=== PATIENT | female | born 1935 | race Caucasian/White ===

== ENCOUNTER 2017-03-23 05:04 | Inpatient (IN) | payer MEDICARE ==
[2017-03-23] VITALS (10 sets, daily range): BP systolic 88–121; BP diastolic 48–68; PULSE 62–97; RESP 16–18; TEMP 98.5–98.8; O2SAT 91–94
[~2017-03-23] VITALS: Ht 177.8 cm; Wt 69.1 kg
[~2017-03-23 05:04] MED LIST: ACIDCAP; CALC500T35; CARB10TA2 PO; CIPR-9 PO; CRAN400C PO; DIPH1TAB36; ENSULIQ; FERR325T PO; GABA600T PO; HYDR-3516 PO; KETO2AER3; LEVO150T7 PO; MULTTAB67 PO; OMEP20CA2; PLAQ200T PO; SINE25TA PO
[2017-03-23] MEDS ORDERED: MORPHINE SULFATE 2 MG/ML INJ IV PUSH ONE (05:15)
[2017-03-23 05:27] LABS: AUTOMATED NEUTROPHIL # 5.3 TH/MM3 (1.8-7.7); BASOPHIL % 0.1 % (0.0-2.0); EOSINOPHIL # 0.1 TH/MM3 (0-0.4); EOSINOPHIL % 1.6 % (0.0-4.0); HEMATOCRIT 31.3 % (35.0-46.0); HEMO FLAGS DIFF FINAL; LYMPH % 8.9 % (9.0-44.0); LYMPHOCYTE # 0.6 TH/MM3 (1.0-4.8); MEAN CELL VOLUME 94.5 FL (80.0-100.0); MEAN CORPUSCULAR HEMOGLOBIN 31.9 PG (27.0-34.0); MEAN CORPUSCULAR HGB CONC 33.7 % (32.0-36.0); MONO % 6.6 % (0.0-8.0); NEUT % 82.8 % (16.0-70.0); PLATELET COUNT 181 TH/MM3 (150-450); RED BLOOD COUNT 3.31 MIL/MM3 (4.00-5.30); RED CELL DISTRIBUTION WIDTH 13.1 % (11.6-17.2); WHITE BLOOD COUNT 6.4 TH/MM3 (4.0-11.0)
[2017-03-23 05:34] LABS: CHLORIDE 103 MEQ/L (98-107); POTASSIUM 4.1 MEQ/L (3.5-5.1); SODIUM (NA) 138 MEQ/L (136-145)
[2017-03-23 05:38] LABS: ANION GAP 6 MEQ/L (5-15); BICARBONATE 29.2 MEQ/L (21.0-32.0); BLOOD UREA NITROGEN 25 MG/DL (7-18)
[2017-03-23 05:41] LABS: ALT (GPT) 9 U/L (10-53); AST (GOT) 25 U/L (15-37); GLOMERULAR FILTRATION RATE 43 ML/MIN (>89)
[2017-03-23 05:42] LABS: TOTAL BILIRUBIN ADULT 0.7 MG/DL (0.2-1.0)
--- NOTE | 2017-03-23 05:43 | PD ---
HPI Chief Complaint: Fall Time Seen by Provider: 05:07 Travel History International Travel<30 days: No Contact w/Intl Traveler<30days: No Traveled to known affect area: No History of Present Illness HPI 82-year-old female here from her long-term complaining of left hip pain after mechanical fall after getting out of bed this morning. The patient reports tripping and falling to the ground, landing onto her left hip. She experienced immediate pain in her left hip. She denies head injury or LOC. She denies head neck or back pain. All of her pain is located in her left hip. The pain is moderate, constant, worse with movements. She is unable to ambulate because of the pain. She denies pain in any other joint or extremity. She is not on any antiplatelets or anticoagulants. She reports that she ambulates with a walker. PFSH Past Medical History Arthritis: Yes Asthma: No Blood Disorders: No Anxiety: Yes Depression: Yes Heart Rhythm Problems: Yes Cancer: No Cardiovascular Problems: Yes (MITRAL VALVE PROLAPSE) High Cholesterol: Yes Chest Pain: No Congestive Heart Failure: No COPD: No Cerebrovascular Accident: No Coronary Artery Disease: Yes Diabetes: No Diminished Hearing: No Fibromyalgia: Yes Gastrointestinal Disorders: Yes ( GASTROENTERITIS; GI BLEED IN PAST) GERD: Yes Genitourinary: Yes Headaches: No Hypertension: No Immune Disorder: Yes (FIBROMYALGIA) Implanted Vascular Access Dvce: Yes Musculoskeletal: Yes (DJD, SPINAL STENOSIS) Neurologic: Yes (PARKINSONS; DEMENTIA) Parkinson's Disease: Yes Psychiatric: No Reproductive: No Respiratory: Yes Immunizations Current: No Migraines: No Seizures: No Sleep Apnea: No Thyroid Disease: Yes Tetanus Vaccination: Unknown Influenza Vaccination: Yes Menopausal: Yes Past Surgical History Abdominal Surgery: Yes (CHOLECYSTECTOMY) Cardiac Surgery: No Section: Yes (1961 and 1964) Cholecystectomy: Yes Ear Surgery: No Endocrine Surgery: No Eye Surgery: Yes (bilateral cataracts) Genitourinary Surgery: No Gynecologic Surgery: Yes (C-SECT) Joint Replacement: Yes (RODS PLACED IN BACK ) Neurologic Surgery: No Oral Surgery: No Thoracic Surgery: No Tonsillectomy: Yes Other Surgery: Yes ("back,laminectomy and fusion,annika") Family History Family Hypercholesterolemia: Yes Social History Alcohol Use: No Tobacco Use: No Substance Use: No Allergies-Medications (Allergen,Severity, Reaction): Coded Allergies: *MDRO Multi-Drug Resistant Organism (Verified Allergy, Unknown, 03/23/17) Reported Meds & Prescriptions Reported Meds & Active Scripts Active Reported Carbidopa-Levodopa 10-100 Mg Tab 1 Tab PO Q8HR Hydrocodone-Acetaminophen 5-325 mg Tab 1 Tab PO Q12HR PRN Cranberry (Cranberry (Vaccinium Macrocarpon)) 400 Mg Cap Plaquenil (Hydroxychloroquine Sulfate) 200 Mg Tab 200 Mg PO DAILY Take with food Sinemet (Carbidopa-Levodopa) 25-100 Mg Tab 1 Tab PO Q8HR Gabapentin 600 Mg Tab 600 Mg PO TID Omeprazole 20 Mg Cap Levothyroxine (Levothyroxine Sodium) 150 Mcg Tab 150 Mcg PO DAILY Calcium (Oyster Shell) 500 Mg Tab Multiple Vitamin 1 Tab 1 Tab PO DAILY Review of Systems Except as stated in HPI: all other systems reviewed are Neg Physical Exam Narrative GENERAL: Well-developed, well-nourished, elderly-appearing female, awake, alert , no apparent distress. SKIN: Focused skin assessment warm/dry. Diffuse ecchymosis to left knee. No lacerations or abrasions. HEAD: Atraumatic. Normocephalic. EYES: Pupils equal and round. No scleral icterus. No injection or drainage. ENT: Mucous membranes pink and moist. NECK: Trachea midline. No JVD. No midline cervical spine step-off or tenderness. CARDIOVASCULAR: Regular rate and rhythm. Distal dorsalis pedis and distal radial pulses are brisk and equal bilaterally. RESPIRATORY: No accessory muscle use. Clear to auscultation. Breath sounds equal bilaterally. GASTROINTESTINAL: Abdomen soft, non-tender, nondistended. MUSCULOSKELETAL: Left lower extremity is slightly shortened and externally rotated. There is limited range of motion in the left hip secondary to pain. There is also pain with axial loading and logrolling of the left lower extremity. Although the left knee has diffuse ecchymosis, she denies tenderness in the left knee. The rest of the patient's joints and extremities are without deformity, without tenderness, with normal range of motion. NEUROLOGICAL: Awake and alert. No obvious cranial nerve deficits. Motor grossly within normal limits. Normal speech. Normal sensation in all 4 extremities. PSYCHIATRIC: Appropriate mood and affect; insight and judgment normal. Data Data Last Documented VS Vital Signs Date Time Temp Pulse Resp B/P (MAP) Pulse Ox O2 Delivery O2 Flow Rate FiO2 10/25/17 05:24 16 03/23/17 05:17 94 Room Air 03/23/17 05:08 98.8 80 92/52 (65) Orders Orders Complete Blood Count With Diff (03/23/17 05:07) Comprehensive Metabolic Panel (03/23/17 05:07) Prothrombin Time / Inr (Pt) (03/23/17 05:07) Act Partial Throm Time (Ptt) (03/23/17 05:07) Iv Access Insert/Monitor (03/23/17 05:07) Ecg Monitoring (03/23/17 05:07) Oximetry (03/23/17 05:07) Sodium Chloride 0.9% Flush (Ns Flush) (03/23/17 05:15) Chest, Single Ap (03/23/17 ) Morphine Inj (Morphine Inj) (03/23/17 05:15) Knee, Complete (4vws) (03/23/17 ) Hip, Uni(Ap&Lat) W Ap Pelvis (03/23/17 ) Ct Brain W/O Iv Contrast(Rout) (03/23/17 ) Ct Cerv Spine W/O Contrast (03/23/17 ) Ct Pelvis W/O Iv Contrast (03/23/17 ) Sodium Chlor 0.9% 1000 Ml Inj (Ns 1000 M (03/23/17 06:44) Labs Laboratory Tests Test 03/23/17 05:15 White Blood Count 6.4 TH/MM3 Red Blood Count 3.31 MIL/MM3 Hemoglobin 10.6 GM/DL Hematocrit 31.3 % Mean Corpuscular Volume 94.5 FL Mean Corpuscular Hemoglobin 31.9 PG Mean Corpuscular Hemoglobin Concent 33.7 % Red Cell Distribution Width 13.1 % Platelet Count 181 TH/MM3 Mean Platelet Volume 6.4 FL Neutrophils (%) (Auto) 82.8 % Lymphocytes (%) (Auto) 8.9 % Monocytes (%) (Auto) 6.6 % Eosinophils (%) (Auto) 1.6 % Basophils (%) (Auto) 0.1 % Neutrophils # (Auto) 5.3 TH/MM3 Lymphocytes # (Auto) 0.6 TH/MM3 Monocytes # (Auto) 0.4 TH/MM3 Eosinophils # (Auto) 0.1 TH/MM3 Basophils # (Auto) 0.0 TH/MM3 CBC Comment DIFF FINAL Differential Comment Prothrombin Time 11.2 SEC Prothromb Time International Ratio 1.0 RATIO Activated Partial Thromboplast Time 27.1 SEC Blood Urea Nitrogen 25 MG/DL Creatinine 1.20 MG/DL Random Glucose 101 MG/DL Total Protein 8.6 GM/DL Albumin 3.6 GM/DL Calcium Level 8.3 MG/DL Alkaline Phosphatase 67 U/L Aspartate Amino Transf (AST/SGOT) 25 U/L Alanine Aminotransferase (ALT/SGPT) 9 U/L Total Bilirubin 0.7 MG/DL Sodium Level 138 MEQ/L Potassium Level 4.1 MEQ/L Chloride Level 103 MEQ/L Carbon Dioxide Level 29.2 MEQ/L Anion Gap 6 MEQ/L Estimat Glomerular Filtration Rate 43 ML/MIN MDM Medical Decision Making Medical Screen Exam Complete: Yes Emergency Medical Condition: Yes Differential Diagnosis Left hip fracture, left hip contusion, pelvic fracture, left knee fracture vs contusion Narrative Course Initial vital signs show heart rate 80, blood pressure 92/52, pulse ox 94% on room air, oral temp of 98.8F. CBC: WBC 6.4, hemoglobin 10.6, hematocrit 31.3, platelets 181. Patient has history of anemia and this is around her baseline. CMP is remarkable for BUN 25, creatinine 1.2, GFR 43. Chest x-ray: No acute disease. Left knee x-ray: Severe osteoarthritis without fracture. Small joint effusion. Left hip and pelvis x-ray shows suspected nondisplaced femoral neck fracture. CT of the pelvis ordered to further evaluate for possible left femoral neck fracture. At approximate 7:00 AM at the end of my shift the patient was signed out to Dr. Castaneda to follow up with CT scans and formulate a disposition. Alexi Maldonado MD Mar 23, 2017 05:43
[2017-03-23 05:44] LABS: ALKALINE PHOSPHATASE 67 U/L (45-117)
--- NOTE | 2017-03-23 06:15 | RADRPT ---
EXAM DATE/TIME: 03/23/2017 05:23 [facility] COMPARISON: No previous studies available for comparison. INDICATIONS : Chest and back pain post fall. MEDICAL HISTORY : Spinal stenosis. Gastroesophageal reflux disease. Dementia. Parkinsons. Cardiovascular disease. SURGICAL HISTORY : section. Cholecystectomy. Back surgery. ENCOUNTER: Initial ACUITY: 1 day PAIN SCORE: 8/10 LOCATION: Bilateral chest FINDINGS: A single view of the chest demonstrates the lungs to be symmetrically aerated without evidence of mas s, infiltrate or effusion. The cardiomediastinal contours are unremarkable. Osseous structures are intact. CONCLUSION: No acute disease. Aren Davidson MD on March 23, 2017 at 6:13 Board Certified Radiologist. This report was verified electronically.
--- NOTE | 2017-03-23 06:15 | RADRPT ---
EXAM DATE/TIME: 03/23/2017 05:23 [facility] COMPARISON: No previous studies available for comparison. INDICATIONS : Left hip pain post fall. MEDICAL HISTORY : Spinal stenosis. Gastroesophageal reflux disease. Dementia. Parkinsons. Cardiovascular disease. SURGICAL HISTORY : section. Cholecystectomy. Back surgery. ENCOUNTER: Initial ACUITY: 1 day PAIN SCORE: 8/10 LOCATION: Left hip. FINDINGS: Examination of the left hip was performed with AP Pelvis. Mild degenerative changes. Appears to be no ndisplaced femoral neck fracture. Right hip is intact. The acetabulum is grossly intact. CONCLUSION: Suspected nondisplaced femoral neck fracture. Aren Davidson MD on March 23, 2017 at 6:12 Board Certified Radiologist. This report was verified electronically.
--- NOTE | 2017-03-23 06:16 | RADRPT ---
EXAM DATE/TIME: 03/23/2017 05:23 [facility] COMPARISON: No previous studies available for comparison. INDICATIONS : Left knee pain post fall. MEDICAL HISTORY : Spinal stenosis. Gastroesophageal reflux disease. Dementia. Parkinsons. Cardiovascular disease. SURGICAL HISTORY : section. Cholecystectomy. Back surgery, Prior surgery to left knee. ENCOUNTER: Initial ACUITY: 1 day PAIN SCORE: 8/10 LOCATION: Left knee. FINDINGS: Four view examination of the left knee demonstrates no evidence of fracture or dislocation. Severe tr icompartmental osteoarthritis. Soft tissue swelling. There is a large anchor from previous surgery. S mall joint effusion. The suprapatellar soft tissues have a normal configuration. The vascular calcifi cations. CONCLUSION: Severe osteoarthritis without fracture. Small joint effusion. Aren Davidson MD on March 23, 2017 at 6:13 Board Certified Radiologist. This report was verified electronically.
[2017-03-23 06:17] LABS: APTT (PATIENT) 27.1 SEC (24.3-30.1); PROTHROMBIN TIME - PATIENT 11.2 SEC (9.8-11.6)
[2017-03-23] MEDS ORDERED: SODIUM CHLOR 0.9% 1000 ML INJ 1,000 ML IV SCH (06:44)
--- NOTE | 2017-03-23 07:02 | RADRPT ---
EXAM DATE/TIME: 03/23/2017 06:23 [facility] COMPARISON: No previous studies available for comparison. INDICATIONS : Trauma. Fall. RADIATION DOSE: 56.67 CTDIvol (mGy) MEDICAL HISTORY : Dementia. Parkinsons. SURGICAL HISTORY : None. ENCOUNTER: Initial ACUITY: 1 day PAIN SCALE: 8/10 LOCATION: cranial TECHNIQUE: Multiple contiguous axial images were obtained of the head. Using automated exposure control and adj ustment of the mA and/or kV according to patient size, radiation dose was kept as low as reasonably a chievable to obtain optimal diagnostic quality images. DICOM format image data is available electro nically for review and comparison. FINDINGS: CEREBRUM: Cerebral atrophy and scattered areas of low attenuation throughout the white matter. The ventricles a re normal for age. No evidence of midline shift, mass lesion, hemorrhage or acute infarction. No ex tra-axial fluid collections are seen. POSTERIOR FOSSA: The cerebellum and brainstem are intact. The 4th ventricle is midline. The cerebellopontine angle i s unremarkable. EXTRACRANIAL: The visualized portion of the orbits is intact. SKULL: The calvaria is intact. No evidence of skull fracture. CONCLUSION: Cerebral atrophy and chronic ischemic small vessel vasculopathy. Aren Davidson MD on March 23, 2017 at 7:00 Board Certified Radiologist. This report was verified electronically.
--- NOTE | 2017-03-23 07:04 | RADRPT ---
EXAM DATE/TIME: 03/23/2017 06:29 [facility] COMPARISON: HIP LEFT (AP&LAT 2/3VWS) W AP PELVIS, March 23, 2017, 5:23. INDICATIONS : Trauma. Fall. Left pelvic pain. ORAL CONTRAST: No oral contrast ingested. RADIATION DOSE: 24.58 CTDIvol (mGy) MEDICAL HISTORY : Parkinson's. Dementia. SURGICAL HISTORY : Fusion, lumbar. ENCOUNTER: Initial ACUITY: 1 day PAIN SCALE: 8/10 LOCATION: pelvis TECHNIQUE: Volumetric scanning of the pelvis was performed. Using automated exposure control and adjustment of the mA and/or kV according to patient size, radiation dose was kept as low as reasonably achievable t o obtain optimal diagnostic quality images. DICOM format image data is available electronically for review and comparison. FINDINGS: BOWEL/MESENTERY: The visualized small and large bowel demonstrate no acute abnormality. There is no free fluid. BLADDER: There is no wall thickening or mass. RETROPERITONEUM: There is no aneurysm or lymphadenopathy. REPRODUCTIVE: Within normal limits. INGUINAL: There is no lymphadenopathy or hernia. MUSCULOSKELETAL: There is subcapital femoral neck fracture of left hip. No significant displacement Slight impaction. Fusion lumbosacral junction. CONCLUSION: 1. Subcapital femoral neck fracture left hip. Aren Davidson MD on March 23, 2017 at 7:00 Board Certified Radiologist. This report was verified electronically.
[2017-03-23] MEDS: SODIUM CHLORIDE 0.9% FLUSH 10 ML FLUSH IV FLUSH PRN ×2 (07:45→08:51)
--- NOTE | 2017-03-23 08:09 | RADRPT ---
EXAM DATE/TIME: 03/23/2017 06:23 [facility] COMPARISON: No previous studies available for comparison. INDICATIONS : Trauma. Fall. RADIATION DOSE: 26.06 CTDIvol (mGy) MEDICAL HISTORY : Dementia. Parkinson's. SURGICAL HISTORY : None. ENCOUNTER: Initial ACUITY: 1 day PAIN SCALE: 8/10 LOCATION: neck TECHNIQUE: Volumetric scanning of the cervical spine was performed. Multiplanar reconstructions in the sagittal, coronal and oblique axial planes were performed. Using automated exposure control and adjustment o f the mA and/or kV according to patient size, radiation dose was kept as low as reasonably achievable to obtain optimal diagnostic quality images. DICOM format image data is available electronically f or review and comparison. FINDINGS: There is straightening of the normal cervical lordosis. There is grade I anterolisthesis of C3 in re lation to C4. Cervical spondylosis is noted at C5-6, C6-7, C7-T1 and to a lesser extent at C3-4 and C4-5. There is no acute fracture or prevertebral soft tissue swelling. The bony relationship and al ignment between C1 and C2 is well maintained. Bilateral foraminal narrowing is noted from C3 through T1 and is most significant on the right at C5-6 and C7-T1. Mild spinal stenosis is noted at C7-T1. CONCLUSION: 1. No acute fracture or prevertebral soft tissue swelling. 2. Grade I anterolisthesis of C3 in relation to C4. 3. Bilateral neural foraminal narrowing from C3 through T1 which is most severe on the right at C5-6 and C7-T1. Cervical spondylosis at C5-6, C6-7, C7-T1 and to a lesser extent at C3-4 and C4-5. 4. Mild spinal stenosis at C7-T1. Bo Snell MD on March 23, 2017 at 7:08 Board Certified Radiologist. This report was verified electronically.
[2017-03-23] MEDS ORDERED: MELA5TAB15 PO (08:13)
[2017-03-23] MEDS ORDERED: LYRI75CA PO (08:13)
[2017-03-23] MEDS ORDERED: LEVO150T7 PO (08:13)
[2017-03-23] MEDS ORDERED: ARTIDRO EACH EYE (08:13)
[2017-03-23] MEDS ORDERED: VITA100064 PO (08:13)
[2017-03-23] MEDS ORDERED: NYSTPOW TOPICAL (08:13)
[2017-03-23] MEDS ORDERED: OMEP20TA PO (08:13)
[2017-03-23] MEDS ORDERED: HYDR200T3 PO (08:13)
[2017-03-23] MEDS ORDERED: FERR325T8 PO (08:13)
[2017-03-23] MEDS ORDERED: HYDR-3533 PO (08:13)
[2017-03-23] MEDS ORDERED: MAPA25TA PO (08:13)
--- NOTE | 2017-03-23 08:39 | PD ---
Physical Exam Narrative Patient was seen by ED physician and signed out to me. Data Data Last Documented VS Vital Signs Date Time Temp Pulse Resp B/P (MAP) Pulse Ox O2 Delivery O2 Flow Rate FiO2 03/23/17 07:30 68 16 88/48 (61) 93 Room Air 03/23/17 05:08 98.8 Orders Orders Complete Blood Count With Diff (03/23/17 05:07) Comprehensive Metabolic Panel (03/23/17 05:07) Prothrombin Time / Inr (Pt) (03/23/17 05:07) Act Partial Throm Time (Ptt) (03/23/17 05:07) Iv Access Insert/Monitor (03/23/17 05:07) Ecg Monitoring (03/23/17 05:07) Oximetry (03/23/17 05:07) Sodium Chloride 0.9% Flush (Ns Flush) (03/23/17 05:15) Chest, Single Ap (03/23/17 ) Morphine Inj (Morphine Inj) (03/23/17 05:15) Knee, Complete (4vws) (03/23/17 ) Hip, Uni(Ap&Lat) W Ap Pelvis (03/23/17 ) Ct Brain W/O Iv Contrast(Rout) (03/23/17 ) Ct Cerv Spine W/O Contrast (03/23/17 ) Ct Pelvis W/O Iv Contrast (03/23/17 ) Sodium Chlor 0.9% 1000 Ml Inj (Ns 1000 M (03/23/17 06:44) Sodium Chlor 0.9% 1000 Ml Inj (Ns 1000 M (03/23/17 08:45) Ondansetron Inj (Zofran Inj) (03/23/17 08:45) Labs Laboratory Tests Test 03/23/17 05:15 White Blood Count 6.4 TH/MM3 Red Blood Count 3.31 MIL/MM3 Hemoglobin 10.6 GM/DL Hematocrit 31.3 % Mean Corpuscular Volume 94.5 FL Mean Corpuscular Hemoglobin 31.9 PG Mean Corpuscular Hemoglobin Concent 33.7 % Red Cell Distribution Width 13.1 % Platelet Count 181 TH/MM3 Mean Platelet Volume 6.4 FL Neutrophils (%) (Auto) 82.8 % Lymphocytes (%) (Auto) 8.9 % Monocytes (%) (Auto) 6.6 % Eosinophils (%) (Auto) 1.6 % Basophils (%) (Auto) 0.1 % Neutrophils # (Auto) 5.3 TH/MM3 Lymphocytes # (Auto) 0.6 TH/MM3 Monocytes # (Auto) 0.4 TH/MM3 Eosinophils # (Auto) 0.1 TH/MM3 Basophils # (Auto) 0.0 TH/MM3 CBC Comment DIFF FINAL Differential Comment Prothrombin Time 11.2 SEC Prothromb Time International Ratio 1.0 RATIO Activated Partial Thromboplast Time 27.1 SEC Blood Urea Nitrogen 25 MG/DL Creatinine 1.20 MG/DL Random Glucose 101 MG/DL Total Protein 8.6 GM/DL Albumin 3.6 GM/DL Calcium Level 8.3 MG/DL Alkaline Phosphatase 67 U/L Aspartate Amino Transf (AST/SGOT) 25 U/L Alanine Aminotransferase (ALT/SGPT) 9 U/L Total Bilirubin 0.7 MG/DL Sodium Level 138 MEQ/L Potassium Level 4.1 MEQ/L Chloride Level 103 MEQ/L Carbon Dioxide Level 29.2 MEQ/L Anion Gap 6 MEQ/L Estimat Glomerular Filtration Rate 43 ML/MIN [facility] Supervised Visit with [facility]: No Interpretation(s) Last Impressions Pelvis CT 03/23/17 Signed Impressions: Service Date/Time: Thursday, March 23, 2017 06:29 - CONCLUSION: 1. Subcapital femoral neck fracture left hip. Aren Davidson MD Knee X-Ray 03/23/17 0000 Signed Impressions: Service Date/Time: Thursday, March 23, 2017 05:23 - CONCLUSION: Severe osteoarthritis without fracture. Small joint effusion. Aren Davidson MD Hip and Pelvis X-Ray 03/23/17 0000 Signed Impressions: Service Date/Time: Thursday, March 23, 2017 05:23 - CONCLUSION: Suspected nondisplaced femoral neck fracture. Aren Davidson MD Head CT 03/23/17 0000 Signed Impressions: Service Date/Time: Thursday, March 23, 2017 06:23 - CONCLUSION: Cerebral atrophy and chronic ischemic small vessel vasculopathy. Aren Davidson MD Chest X-Ray 03/23/17 0000 Signed Impressions: Service Date/Time: Thursday, March 23, 2017 05:23 - CONCLUSION: No acute disease. Aren Davidson MD Cervical Spine CT 03/23/17 0000 Signed Impressions: Service Date/Time: Thursday, March 23, 2017 06:23 - CONCLUSION: 1. No acute fracture or prevertebral soft tissue swelling. 2. Grade I anterolisthesis of C3 in relation to C4. 3. Bilateral neural foraminal narrowing from C3 through T1 which is most severe on the right at C5-6 and C7-T1. Cervical spondylosis at C5-6, C6-7, C7-T1 and to a lesser extent at C3- 4 and C4-5. 4. Mild spinal stenosis at C7-T1. Bo Snell MD 8 36 AM. CBC WBC 6.4. Hemoglobin 10.6 hematocrit 31.3. BUN 25. Creatinine 1.2. Narrative Course Normal saline solution 1 L IV bolus. Patient was given morphine earlier for pain. Diagnosis Primary Impression: Fracture of femoral neck, left, closed Qualified Codes: S72.002A - Fracture of unspecified part of neck of left femur , initial encounter for closed fracture Kyler Castaneda MD Mar 23, 2017 08:39
[2017-03-23] MEDS ORDERED: SODIUM CHLOR 0.9% 1000 ML INJ 1,000 ML IV ONE (08:45)
[2017-03-23] MEDS ORDERED: ONDANSETRON HCL 4 MG/2 ML VIAL IV PUSH ONE (08:45)
[2017-03-23] MEDS ORDERED: CRANBERRY PO SCH (09:30)
--- NOTE | 2017-03-23 09:47 | HHI.HP ---
HPI Service [facility] Primary Care Physician Hammad Huang MD Admission Diagnosis fracture left femoral neck Diagnoses: Chief Complaint: Fall Travel History International Travel<30 Days: No Contact w/Intl Traveler <30 Da: No Traveled to Known Affected Are: No History of Present Illness 82-year-old white female being admitted for suspected left femoral neck fracture nondisplaced History is limited from patient, was able to speak and get some information provided a secondhand from morning nurse who got report from night nurse at assisted living facility if patient. Patient apparently was in her usual state of health until some time last night when she attempted to use the restroom on her own without calling for help and had a mechanical fall. Fall was unwitnessed. Patient herself denies any shortness of breath chest pain or palpitations before during or after the fall. Daughter also suspects that this was mechanical fall, no past medical history of losing consciousness. Daughter denies any significant anesthesia issues with the patient in the past during her recovery phase. Daughter does mention that the patient has had wound care for a decubitus ulcer at the residential and would like for this to continue as well while inpatient. Review of Systems Except as stated in HPI: all other systems reviewed are Neg Past Family Social History Past Medical History Sjogren's syndrom, degenerative disc disease, spinal stenosis, peptic ulcer disease Past Surgical History right knee replacement per daughter, laminectomy, cholecystectomy Allergies: Coded Allergies: *MDRO Multi-Drug Resistant Organism (Verified Allergy, Unknown, 03/23/17) Family History HTN Social History prior hx of smoking per daughter, currently in RESIDENTIAL Physical Exam Vital Signs Vital Signs Date Time Temp Pulse Resp B/P (MAP) Pulse Ox O2 Delivery O2 Flow Rate FiO2 03/23/17 07:30 68 16 88/48 (61) 93 Room Air 03/23/17 05:24 16 03/23/17 05:17 94 Room Air 03/23/17 05:11 Room Air 03/23/17 05:08 98.8 80 18 92/52 (65) 94 Physical Exam VS: afebrile GENERAL: Mild distress secondary to pain, keeping her eyes closed, daughter mentions that her eyes are sensitive due to her Sjogren's syndrome SKIN: Warm and dry. EYES:No scleral icterus. No injection or drainage. ENT: No nasal bleeding or discharge. Mucous membranes pink and moist. CARDIOVASCULAR: Regular rate and rhythm. no murmurs RESPIRATORY: No accessory muscle use. Clear to auscultation. Breath sounds equal bilaterally. GASTROINTESTINAL: Abdomen soft, non-tender, nondistended. Extremities: No clubbing, cyanosis, or edema. Right knee with mild effusion and bruising anteriorly; pt not wanting to move her left leg; has intact sensation and pedal pulse BL MUSCULOSKELETAL: Extremities without clubbing, cyanosis, or edema. No obvious deformities. grossly intact ROM with 5/5 strength in upper extremities proximally NEUROLOGICAL: Awake and alert. No obvious cranial nerve deficits. No facial droop nor slurred speech noted. PSYCHIATRIC: Appropriate mood and affect; insight and judgment normal. Laboratory Laboratory Tests Test 03/23/17 05:15 White Blood Count 6.4 Red Blood Count 3.31 Hemoglobin 10.6 Hematocrit 31.3 Mean Corpuscular Volume 94.5 Mean Corpuscular Hemoglobin 31.9 Mean Corpuscular Hemoglobin Concent 33.7 Red Cell Distribution Width 13.1 Platelet Count 181 Mean Platelet Volume 6.4 Neutrophils (%) (Auto) 82.8 Lymphocytes (%) (Auto) 8.9 Monocytes (%) (Auto) 6.6 Eosinophils (%) (Auto) 1.6 Basophils (%) (Auto) 0.1 Neutrophils # (Auto) 5.3 Lymphocytes # (Auto) 0.6 Monocytes # (Auto) 0.4 Eosinophils # (Auto) 0.1 Basophils # (Auto) 0.0 CBC Comment DIFF FINAL Differential Comment Prothrombin Time 11.2 Prothromb Time International Ratio 1.0 Activated Partial Thromboplast Time 27.1 Blood Urea Nitrogen 25 Creatinine 1.20 Random Glucose 101 Total Protein 8.6 Albumin 3.6 Calcium Level 8.3 Alkaline Phosphatase 67 Aspartate Amino Transf (AST/SGOT) 25 Alanine Aminotransferase (ALT/SGPT) 9 Total Bilirubin 0.7 Sodium Level 138 Potassium Level 4.1 Chloride Level 103 Carbon Dioxide Level 29.2 Anion Gap 6 Estimat Glomerular Filtration Rate 43 Result Diagram: 03/23/17 0515 03/23/17 0515 Imaging Last Impressions Pelvis CT 10/25/17 0000 Signed Impressions: Service Date/Time: Thursday, March 23, 2017 06:29 - CONCLUSION: 1. Subcapital femoral neck fracture left hip. Aren Davidson MD Knee X-Ray 03/23/17 Signed Impressions: Service Date/Time: Thursday, March 23, 2017 05:23 - CONCLUSION: Severe osteoarthritis without fracture. Small joint effusion. Aren Davidson MD Hip and Pelvis X-Ray 03/23/17 Signed Impressions: Service Date/Time: Thursday, March 23, 2017 05:23 - CONCLUSION: Suspected nondisplaced femoral neck fracture. Aren Davidson MD Head CT 03/23/17 Signed Impressions: Service Date/Time: Thursday, March 23, 2017 06:23 - CONCLUSION: Cerebral atrophy and chronic ischemic small vessel vasculopathy. Aren Davidson MD Chest X-Ray 03/23/17 Signed Impressions: Service Date/Time: Thursday, March 23, 2017 05:23 - CONCLUSION: No acute disease. Aren Davidson MD Cervical Spine CT 03/23/17 Signed Impressions: Service Date/Time: Thursday, March 23, 2017 06:23 - CONCLUSION: 1. No acute fracture or prevertebral soft tissue swelling. 2. Grade I anterolisthesis of C3 in relation to C4. 3. Bilateral neural foraminal narrowing from C3 through T1 which is most severe on the right at C5-6 and C7-T1. Cervical spondylosis at C5-6, C6-7, C7-T1 and to a lesser extent at C3- 4 and C4-5. 4. Mild spinal stenosis at C7-T1. Bo Snell MD Caprini VTE Risk Assessment Caprini VTE Risk Assessment: Mod/High Risk (score >= 2) VTE Pharm Contraindication: Caprini Risk Assessment Model Point Value = 1 Point Value = 2 Point Value = 3 Point Value = 5 Age 41-60 Minor surgery BMI > 25 kg/m2 Swollen legs Varicose veins or History of unexplained or recurrent spontaneous Oral contraceptives or hormone replacement Sepsis (< 1 month) Serious lung disease, including pneumonia (< 1 month) Abnormal pulmonary function Acute myocardial infarction Congestive heart failure (< 1 month) History of inflammatory bowel disease Medical patient at bed rest Age 61-74 Arthroscopic surgery Major open surgery (> 45 min) Laparoscopic surgery (> 45 min) Malignancy Confined to bed (> 72 hours) Immobilizing plaster cast Central venous access Age >= 75 History of VTE Family history of VTE Factor V Leiden Prothrombin [id number] Lupus anticoagulant Anticardiolipin antibodies Elevated serum homocysteine Heparin-induced thrombocytopenia Other congenital or acquired thrombophilia Stroke (< 1 month) Elective arthroplasty Hip, pelvis, or leg fracture Acute spinal cord injury (< 1 month) Prophylaxis Regimen Total Risk Factor Score Risk Level Prophylaxis Regimen 0-1 Low Early ambulation 2 Moderate Order ONE of the following: *Sequential Compression Device (SCD) *Heparin 5000 units SQ BID 3-4 Higher Order ONE of the following medications: *Heparin 5000 units SQ TID *Enoxaparin/Lovenox 40 mg SQ daily (WT < 150 kg, CrCl > 30 mL/min) *Enoxaparin/Lovenox 30 mg SQ daily (WT < 150 kg, CrCl > 10-29 mL/min) *Enoxaparin/Lovenox 30 mg SQ BID (WT < 150 kg, CrCl > 30 mL/min) AND/OR *Sequential Compression Device (SCD) 5 or more Highest Order ONE of the following medications: *Heparin 5000 units SQ TID (Preferred with Epidurals) *Enoxaparin/Lovenox 40 mg SQ daily (WT < 150 kg, CrCl > 30 mL/min) *Enoxaparin/Lovenox 30 mg SQ daily (WT < 150 kg, CrCl > 10-29 mL/min) *Enoxaparin/Lovenox 30 mg SQ BID (WT < 150 kg, CrCl > 30 mL/min) AND *Sequential Compression Device (SCD) Assessment and Plan Assessment and Plan 82-year-old white female being admitted for nondisplaced left femoral neck fracture Femoral neck fracture - independently reviewed the plain film which shows a possible nondisplaced neck fx, ortho consulted - will be cautiously with IV pain medications due to low blood pressure, continue home [place] medications nonetheless - For now will be made nothing by mouth except medications unless indicated by Ortho otherwise - Fall precautions - will need Lovenox postop. Parkinson's disease - Continue home carbidopa levodopa Neuropathic pain - Continue home Lyrica Hypothyroidism - Continue home levothyroxine Iron deficiency anemia - Continue home iron Sjogren's syndrome - continue home Plaquenil and eye drops Possible decubitus ulcer - Not examined during admission to minimize pain for patient, we'll place wound care consult. Will hold off on home diphenhydramine unless pt reports itching - may cause confusion at her age due to anticholinergic effect. Discussed with daughter who is patient's legal decision maker, is a DO NOT RESUSCITATE. Physician Certification 2 Midnight Certification Type: Admission for Inpatient Services Order for Inpatient Services The services are ordered in accordance with Medicare regulations or non- Medicare payer requirements, as applicable. In the case of services not specified as inpatient-only, they are appropriately provided as inpatient services in accordance with the 2-midnight benchmark. Estimated LOS (days): 3 3 days is the estimated time the patient will need to remain in the hospital, assuming treatment plan goals are met and no additional complications. Post-Hospital Plan: [facility] Ortiz Irene MD Mar 23, 2017 09:46
[2017-03-23] MEDS: LEVOTHYROXINE SODIUM 150 MCG TAB PO SCH (10:38)
[2017-03-23] MEDS: CARBIDOPA/LEVODOPA 25 MG/100 MG TAB PO SCH ×3 (10:38→21:14)
[2017-03-23] MEDS ORDERED: NYSTATIN 100,000 U/GM PWD 15 GM BTL TOPICAL PRN (10:45)
[2017-03-23] MEDS: HYDROXYCHLOROQUINE SULFATE 200 MG TAB PO SCH (11:01)
[2017-03-23] MEDS: PREGABALIN 75 MG CAP PO SCH ×2 (11:01→21:14)
[2017-03-23] MEDS: CHOLECALCIFEROL (VIT D3) 1000 UNIT TAB PO SCH (11:02)
[2017-03-23] MEDS: FERROUS SULFATE 325 MG (65 MG ELEMENTAL IRON) TAB PO SCH (11:02)
[2017-03-23] MEDS: PANTOPRAZOLE SOD 20 MG DELAYED RELEASE TAB PO SCH (11:05)
[2017-03-23] MEDS: ACETAMINOPHEN/HYDROcodone 325 MG/5 MG TAB PO PRN ×2 (11:05→21:15)
[2017-03-23] MEDS: MULTIVITAMIN TAB PO SCH (11:05)
[2017-03-23] MEDS ORDERED: ARTIFICIAL TEARS OPTH SOLN 15 ML BTL EACH EYE PRN (11:15)
[2017-03-23] MEDS ORDERED: CARBIDOPA/LEVODOPA 10 MG/100 MG TAB PO SCH (13:00)
--- NOTE | 2017-03-23 16:32 | PD.WCN.NOT ---
Wound Consult Description: Received consult for wound management of pressure ulcers, at least decubitis ( sacral) from Doctor Irene Communicated with: MARCELO Mack and call placed to Doctor Teto Recommendation: Please cleanse buttock area with soap and water gently and pat dry. Apply thick layer of Calazime barrier cream BID and PRN and leave open to air. Do not scrub barrier cream from skin, OK to leave some barrier cream in place when cleaning patient and layer barrier cream. Turn patient every 2 hours and PRN for comfort and to offload pressure from sacral and coccyx areas. Please use ultra sorb pads for incontinence management instead of thick cloth pads. Additional Information: Patient seen on [address] for evaluation of pressure ulcers, possibly to sacrum.Patient positioned to R side with the assistance of Ladonna, senior medical writer and MARCELO Mack . Removed adhesive foam dressing in place to reveal denuded intact erythematous blanchable skin. No pressure injury is seen at this time. Thick layer of calazime barrier cream applied and left open to air for moisture related skin breakdown. Thania Eckert [facility] Mar 23, 2017 16:32
[2017-03-23] MEDS ORDERED: DIPHENHYDRAMINE ACETAMINOPHEN PO SCH (21:00)
[2017-03-23] MEDS ORDERED: diphenhydrAMINE HCL 25 MG CAP PO SCH (21:00)
[2017-03-23] MEDS ORDERED: MELATONIN 3 MG PO SCH (21:00)
[2017-03-23] MEDS ORDERED: ACETAMINOPHEN 500 MG CPLT PO SCH (21:00)
[2017-03-23] MEDS ORDERED: SODIUM CHLORID 0.9% 500 ML IV PRN (22:15)
[2017-03-23] MEDS ORDERED: LACTATED RINGER'S 1000 ML IV PRN (22:15)
[2017-03-23] MEDS ORDERED: POVIDONE IODINE 5% (ANTISEPSIS KIT) 4 APPLICATIONS EACH NARE PRN (22:15)
[2017-03-23] MEDS ORDERED: INSULIN HUMAN REGULAR 1,000 UNITS/10 ML VIAL SQ PRN (22:15)
[2017-03-23] MEDS ORDERED: CHLORHEXIDINE GLUCONATE 2 % 1 PACK (2 CLOTHS) TOPICAL PRN (22:15)
[2017-03-23] MEDS ORDERED: METOPROLOL TARTRATE 25 MG TAB PO PRN (22:15)
[2017-03-24] VITALS: BP 117/71; PULSE 88; RESP 18; TEMP 99.4; O2SAT 95
[2017-03-24 04:00] VITALS: BP 121/68; PULSE 85; RESP 18; TEMP 99.9; O2SAT 94
[2017-03-24] MEDS: LEVOTHYROXINE SODIUM 150 MCG TAB PO SCH (05:43)
[2017-03-24] MEDS: ACETAMINOPHEN/HYDROcodone 325 MG/5 MG TAB PO PRN ×2 (05:43→16:53)
[2017-03-24] MEDS ORDERED: ACETAMINOPHEN 1000 MG/100 ML 100 ML IV ONE (06:17)
[2017-03-24] MEDS ORDERED: MORPHINE SULFATE 2 MG/ML INJ ONE (06:48)
--- NOTE | 2017-03-24 06:48 | PD.ORT.PN ---
Subjective Subjective Remarks Lives at assisted-living home. Semi-independent with moderate dementia. Slip and fall with pain to left hip. Chronic back pain due to previous surgery and bilateral neuropathies in feet Objective Vitals Vital Signs Date Time Temp Pulse Resp B/P (MAP) Pulse Ox O2 Delivery O2 Flow Rate FiO2 03/24/17 04:00 99.9 85 18 121/68 (85) 94 03/24/17 00:00 99.4 88 18 117/71 (86) 95 03/23/17 19:00 98.8 97 18 101/55 (70) 91 03/23/17 16:00 98.5 86 18 121/61 (81) 94 03/23/17 13:23 85 16 111/59 (76) 93 03/23/17 13:10 70 16 93 Room Air 03/23/17 12:15 62 16 120/68 (85) 93 Room Air 03/23/17 11:45 16 03/23/17 11:45 16 03/23/17 11:10 69 16 117/61 (79) 93 Room Air 03/23/17 11:00 66 16 94 Room Air 03/23/17 09:30 62 16 96/58 (71) 93 Room Air 03/23/17 09:15 62 16 94 Room Air 03/23/17 08:30 65 16 93/54 (67) 93 Room Air 03/23/17 07:30 68 16 88/48 (61) 93 Room Air 03/23/17 07:05 69 16 93 Room Air I/O 03/23/17 03/23/17 03/23/17 03/24/17 03/24/17 03/24/17 07:00 15:00 23:00 07:00 15:00 23:00 Intake Total 1000 ml Balance 1000 ml Intake IV Total 1000 ml Result Diagram: 03/23/17 0515 03/23/17 0515 Imaging Last [address] 03/23/17 0000 Signed Impressions: Service Date/Time: Thursday, March 23, 2017 06:29 - CONCLUSION: 1. Subcapital femoral neck fracture left hip. Aren Davidson MD Knee X-Ray 03/23/17 0000 Signed Impressions: Service Date/Time: Thursday, March 23, 2017 05:23 - CONCLUSION: Severe osteoarthritis without fracture. Small joint effusion. Aren Davidson MD Hip and Pelvis X-Ray 03/23/17 Signed Impressions: Service Date/Time: Thursday, March 23, 2017 05:23 - CONCLUSION: Suspected nondisplaced femoral neck fracture. Aren Davidson MD Head CT 03/23/17 Signed Impressions: Service Date/Time: Thursday, March 23, 2017 06:23 - CONCLUSION: Cerebral atrophy and chronic ischemic small vessel vasculopathy. Aren Davidson MD Chest X-Ray 03/23/17 Signed Impressions: Service Date/Time: Thursday, March 23, 2017 05:23 - CONCLUSION: No acute disease. Aren Davidson MD Cervical Spine CT 03/23/17 Signed Impressions: Service Date/Time: Thursday, March 23, 2017 06:23 - CONCLUSION: 1. No acute fracture or prevertebral soft tissue swelling. 2. Grade I anterolisthesis of C3 in relation to C4. 3. Bilateral neural foraminal narrowing from C3 through T1 which is most severe on the right at C5-6 and C7-T1. Cervical spondylosis at C5-6, C6-7, C7-T1 and to a lesser extent at C3- 4 and C4-5. 4. Mild spinal stenosis at C7-T1. Bo Snell MD Objective Remarks Bilateral upper extremities: Full range of motion neurovascularly intact Right lower extremity: Full range of motion and neurovascularly intact Left lower extremity: Pain to palpation of hip and with any movement of hip. Skin is intact. Moderate bruising over knee. Chronic valgus deformity and severe arthritis of knee. Distally diminished sensation. Good capillary refills. Assessment & Plan Assessment and Plan Left minimally displaced femoral neck fracture Nothing by mouth Surgery this morning with Dr. Sandoval for planned percutaneous screw fixation of femoral neck. If fracture has displaced surgery may need to be progress to a left hip hemiarthroplasty. Sign consents Shahid Saavedra Jr. Mar 24, 2017 06:48
[2017-03-24] MEDS ORDERED: GENTAMICIN SULFATE 80 MG/2 ML VIAL ONE (07:13)
[2017-03-24] MEDS ORDERED: ceFAZolin INJ 1,000 MG VIAL ONE (07:46)
[2017-03-24] MEDS ORDERED: VANCOMYCIN HCL 1000 MG VIAL ONE (07:46)
[2017-03-24] MEDS ORDERED: BUPIVACAINE/EPINEPHRINE 0.5% 50 ML VIAL ONE (08:18)
--- NOTE | 2017-03-24 08:29 | PD.OP ---
cc: Porter Ojeda MD Operative Report Date of Surgery: Mar 24, 2017 Preoperative Diagnosis: Minimally displaced left femoral neck fracture Postoperative Diagnosis: Procedure: Left hip pinning Anesthesia: Gen. Surgeon: Porter Ojeda [employer] Supervisor(s): RODERICK Laguerre PA-C Operation and Findings: Plan of activity: TTWB 4 weeks, then 50% weightbearing Patient was seen and evaluated preoperatively. The patient has significant hip pain from impacted femoral neck fracture. The risk and benefits of surgery were discussed in depth with the patient to include bleeding infection nonunion malunion, avascular necrosis and need for hip replacement painful hardware as well as medical competitions including but not stroke heart attack and . Informed consent was obtained. Operative site was marked. Patient was brought to the operating room and placed on fracture table. IV sedation was administered by anesthesiologist. Timeout procedure was performed. Hip and leg were prepped with alcohol followed by Hibiclens and draped in the usual sterile fashion. IV antibiotics were given prior to incision. Procedure began with evaluation of fracture under fluoroscopy. Leg was gently manipulated to improve alignment. Excellent reduction was achieved. Fluoroscopy was used to confirm reduction. A three cm incision was along the lateral aspect of the proximal femur . Subcutaneous tissue was dissected bluntly. Three guidepins were placed through the lateral cortex of the proximal femur. Guide pins were placed in an inverted triangle position. Guide pins were advanced across the fracture site into the femoral head. Fluoroscopy confirmed appropriate guidepin placement. The screw lengths were measured. A cannulated drill was placed over each of the guide pins. Appropriate length ITS 7.5 mm cannulated screws were placed over the guidepins. Good compression was applied across the fracture. Final fluoroscopy revealed well aligned fracture with well-placed hardware. Incision was closed with 3-0 Vicryl and josh. Sterile dressings were applied. Patient was awakened and transferred to recovery room. Porter Oejda MD Mar 24, 2017 08:29
[2017-03-24] MEDS ORDERED: SODIUM CHLORIDE 0.9% FLUSH 5 ML FLUSH IVF PRN (08:30)
[2017-03-24] MEDS ORDERED: Post-op Orders (for Pharmacy) MISC XX ONE (08:30)
[2017-03-24] MEDS ORDERED: DO NOT ADM ANY ANTICOAGULANT DRUGS PRN (08:40)
[2017-03-24] MEDS ORDERED: CALCTAB19 PO (08:46)
[2017-03-24] MEDS ORDERED: XARE10TA PO (08:46)
[2017-03-24] MEDS ORDERED: WALKER/ADULT/FO1 MIS (08:46)
[2017-03-24] MEDS ORDERED: NORC5TAB PO (08:46)
[2017-03-24] MEDS ORDERED: ERGO1CAP30 PO (08:46)
--- NOTE | 2017-03-24 08:57 | MB ---
cc: FAM HUSSEIN DATE OF ADMISSION 03/23/2017 DATE OF CONSULTATION 03/24/2017 REASON FOR CONSULTATION Left femoral neck fracture. HISTORY Blanca is an 82-year-old female who had a fall. She lives at an assisted living facility. She is relatively independent in her activities of daily living. She denies dizziness, syncope or loss of consciousness. She was going to the bathroom when she fell. She had immediate left hip pain. She was unable to stand or ambulate. She presented to the emergency room where x-rays revealed a left femoral neck fracture. She is currently awake and alert on the orthopedic floor. Her family is at bedside. PAST MEDICAL HISTORY ILLNESSES 1. Sj gren's syndrome. 2. Degenerative disk disease. 3. Spinal stenosis. 4. Peptic ulcer disease. SURGERIES 1. Right knee replacement. 2. Laminectomy. 3. Cholecystectomy. ALLERGIES No known drug allergies. FAMILY HISTORY Positive for hypertension. SOCIAL HISTORY The patient lives in an [facility]. She currently does not drink, smoke or use drugs. MEDICATIONS Please see EMR for complete list of inpatient medications. REVIEW OF SYSTEMS The patient denies headache, visual changes, neck pain, chest pain, shortness of breath, abdominal pain, nausea, vomiting, recent weight loss or numbness or tingling of extremities. She complains of left hip pain. The pain is worse with movement. PHYSICAL EXAMINATION GENERAL: The patient is a pleasant 82-year-old female in no acute distress. She is awake and alert. She appears well-developed, well-nourished. VITAL SIGNS: Temperature 99.9, pulse 85, respirations 18, blood pressure 121/68, O2 sat is 94% on room air. HEAD: The patient is normocephalic. Pupils are equal. NECK: Soft, nontender. Trachea is midline. ABDOMEN: Soft, nontender, nondistended. EXTREMITIES: Examination of bilateral upper extremities reveals no pain with shoulder, elbow or wrist motion. She has intact sensation in all fingers. He has good capillary refill in all fingers. Skin is intact to both hands. Lab Animal Technician strength is +5/5 bilaterally Examination of the right leg reveals no pain with hip, knee or ankle motion. Skin is intact. Dorsalis pedis pulses palpable. Sensation is intact. Examination of the left leg reveals pain with any hip motion. She has mild valgus deformity of her knee. She has mild tenderness around the knee secondary to osteoarthritis. The skin is intact. She has some hypersensitivity of the bilateral feet secondary to peripheral neuropathy. X-RAYS X-rays of the left hip were reviewed. X-rays reveal a minimally displaced impacted left femoral neck fracture. IMPRESSION 1. Sj gren's syndrome. 2. Bilateral lower extremity peripheral neuropathy. 3. Left femoral neck fracture. 4. 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 PLAN The treatment options were discussed with the patient and family. At this point I would recommend left hip pinning. The risks of surgery include bleeding, infection, injury to arteries, nerves or blood vessels, nonunion, malunion, avascular necrosis, need for hip replacement as well as medical complications including blood clot, stroke, heart attack and . I also explained to her that if the fracture has displaced, I may proceed with hemiarthroplasty at this time. All questions were answered. I will plan on surgery today. A mid-level provider in my office, nurse practitioner or PA, may see this patient on a follow-up basis and continue to implement the objective of this plan including: Starting or adjusting medications, injections of muscle, tendon, bursa or joints, cast application, orthotic or brace application, physical therapy, further radiographic studies including x-ray, MRI, CT, ultrasounds or bone scan, vascular studies, neurologic studies, or other specialist consultations, and proceeding with surgical management as appropriate. MD DORY Mayes/BONY /8:31 AM /8:39 AM MURRAY
[2017-03-24] MEDS: CARBIDOPA/LEVODOPA 25 MG/100 MG TAB PO SCH ×4 (09:00→21:54)
[2017-03-24] MEDS: SODIUM CHLORIDE 0.9% FLUSH 5 ML FLUSH IVF SCH ×2 (09:00→21:00)
--- NOTE | 2017-03-24 09:46 | RADRPT ---
EXAM DATE/TIME: 03/24/2017 08:23 [place] COMPARISON: No previous studies available for comparison. INDICATIONS : ORIF left hip fracture. MEDICAL HISTORY : Unobtainable. SURGICAL HISTORY : Unobtainable. ENCOUNTER: Subsequent ACUITY: 1 day PAIN SCORE: Non-responsive. LOCATION: Left hip FINDINGS: 2 images recorded digitally in the operating room using C-arm during placement of 3 long screws in th e left proximal femur. CONCLUSION: Intraoperative images. Preston Jimenez MD on March 24, 2017 at 9:44 Board Certified Radiologist. This report was verified electronically.
[2017-03-24 09:50] LABS: BACTERIA, URINE MANY /hpf; BLOOD, URINE SMALL (NEG); GLUCOSE,URINE NEG (NEG); KETONE, URINE NEG (NEG); NITRITE,URINE POS (NEG); PH, URINE 6.5 (5.0-8.5); SQUAMOUS EPITHELIAL CELL URINE 1 /hpf (0-5); TRANSITIONAL EPI CELLS, URINE <1 /hpf; URINE COLOR YELLOW (YELLW/STRAW)
[2017-03-24 09:51] LABS: COMMENT (UR) CATH-CULTURE IND; CULTURE IF INDICATED CATH CULTURE IND
[2017-03-24] MEDS ORDERED: INFLUENZA VIRUS VACCINE (QUADRIVALENT) 0.5 ML SYR IM ONE (10:00)
--- NOTE | 2017-03-24 10:22 | HHI.PR ---
Subjective Remarks Pleasant, in bed says he is not in pain. Family at bedside. Denies chest ellis or sob. Eating fairly well./ No n/v/d/c. Objective Vitals Vital Signs Date Time Temp Pulse Resp B/P (MAP) Pulse Ox O2 Delivery O2 Flow Rate FiO2 03/24/17 08:45 98.5 79 12 117/56 (76) 100 Nasal Cannula 3 03/24/17 04:00 99.9 85 18 121/68 (85) 94 03/24/17 00:00 99.4 88 18 117/71 (86) 95 03/23/17 19:00 98.8 97 18 101/55 (70) 91 03/23/17 16:00 98.5 86 18 121/61 (81) 94 03/23/17 13:23 85 16 111/59 (76) 93 03/23/17 13:10 70 16 93 Room Air 03/23/17 12:15 62 16 120/68 (85) 93 Room Air 03/23/17 11:45 16 03/23/17 11:45 16 03/23/17 11:10 69 16 117/61 (79) 93 Room Air 03/23/17 11:00 66 16 94 Room Air I/O 03/23/17 03/23/17 03/23/17 03/24/17 03/24/17 03/24/17 07:00 15:00 23:00 07:00 15:00 23:00 Intake Total 1000 ml 800 ml Output Total 275 ml Balance 1000 ml 525 ml Intake IV Total 1000 ml Other 800 ml Output Urine Total 250 ml Estimated Blood Loss 25 ml # Voids 2 Result Diagram: 03/23/17 0515 03/23/17 0515 Imaging Last Impressions Hip X-Ray 03/24/17 0000 Signed Impressions: Service Date/Time: February 08:23 - CONCLUSION: Intraoperative images. Preston Jimenez MD Pelvis CT 03/23/17 0000 Signed Impressions: Service Date/Time: Thursday, March 23, 2017 06:29 - CONCLUSION: 1. Subcapital femoral neck fracture left hip. Aren Davidson MD Knee X-Ray 03/23/17 0000 Signed Impressions: Service Date/Time: Thursday, March 23, 2017 05:23 - CONCLUSION: Severe osteoarthritis without fracture. Small joint effusion. Aren Davidson MD Hip and Pelvis X-Ray 03/23/17 Signed Impressions: Service Date/Time: Thursday, March 23, 2017 05:23 - CONCLUSION: Suspected nondisplaced femoral neck fracture. Aren Davidson MD Head CT 03/23/17 Signed Impressions: Service Date/Time: Thursday, March 23, 2017 06:23 - CONCLUSION: Cerebral atrophy and chronic ischemic small vessel vasculopathy. Aren Davidson MD Chest X-Ray 03/23/17 Signed Impressions: Service Date/Time: Thursday, March 23, 2017 05:23 - CONCLUSION: No acute disease. Aren Davidson MD Cervical Spine CT 03/23/17 Signed Impressions: Service Date/Time: Thursday, March 23, 2017 06:23 - CONCLUSION: 1. No acute fracture or prevertebral soft tissue swelling. 2. Grade I anterolisthesis of C3 in relation to C4. 3. Bilateral neural foraminal narrowing from C3 through T1 which is most severe on the right at C5-6 and C7-T1. Cervical spondylosis at C5-6, C6-7, C7-T1 and to a lesser extent at C3- 4 and C4-5. 4. Mild spinal stenosis at C7-T1. Bo Snell MD Objective Remarks GENERAL: Mild distress secondary to pain, keeping her eyes closed, daughter mentions that her eyes are sensitive due to her Sjogren's syndrome CARDIOVASCULAR: Regular rate and rhythm. no murmurs RESPIRATORY: No accessory muscle use. Clear to auscultation. Breath sounds equal bilaterally. GASTROINTESTINAL: Abdomen soft, non-tender, nondistended. Extremities: No clubbing, cyanosis, or edema. Right knee with mild effusion and bruising anteriorly; pt not wanting to move her left leg; has intact sensation and pedal pulse BL MUSCULOSKELETAL: Extremities without clubbing, cyanosis, or edema. No obvious deformities. grossly intact ROM with 5/5 strength in upper extremities proximally NEUROLOGICAL: Awake and alert. No obvious cranial nerve deficits. No facial droop nor slurred speech noted. Procedures Minimally displaced left femoral neck fracture s/p Left hip pinning by Dr Sandoval ortho 03/24/17 A/P Assessment and Plan 82-year-old white female being admitted for nondisplaced left femoral neck fracture Minimally displaced left femoral neck fracture s/p Left hip pinning by Dr Lori willis 03/24/17 - independently reviewed the plain film which shows a possible nondisplaced neck fx, ortho consulted - will be cautiously with IV pain medications due to low blood pressure, continue home [place] medications nonetheless - For now will be made nothing by mouth except medications unless indicated by Ortho otherwise - Fall precautions - will need Lovenox postop, per surg Parkinson's disease - Continue home carbidopa levodopa Neuropathic pain - Continue home Lyrica Hypothyroidism - Continue home levothyroxine Iron deficiency anemia - Continue home iron Sjogren's syndrome - continue home Plaquenil and eye drops Possible decubitus ulcer - Not examined during admission to minimize pain for patient, we'll place wound care consult. Will hold off on home diphenhydramine unless pt reports itching - may cause confusion at her age due to anticholinergic effect. Code status: DO NOT RESUSCITATE. DVT ppx scd/teds, chemical ppx per surgeon Discussed with the patient, nurse, family at bedside. DC plan : DC to SNF when cleared by Mirta Veronica MD Mar 24, 2017 10:22
[2017-03-24] MEDS ORDERED: MORPHINE SULFATE 4 MG/ML INJ IV PUSH PRN (11:00)
[2017-03-24 12:00] VITALS: BP 111/61; PULSE 100; RESP 18; TEMP 97.8; O2SAT 96
[2017-03-24] MEDS: MULTIVITAMIN TAB PO SCH (13:36)
[2017-03-24] MEDS: PREGABALIN 75 MG CAP PO SCH ×2 (13:36→21:54)
[2017-03-24] MEDS: CHOLECALCIFEROL (VIT D3) 1000 UNIT TAB PO SCH (13:36)
[2017-03-24] MEDS: HYDROXYCHLOROQUINE SULFATE 200 MG TAB PO SCH (13:37)
[2017-03-24] MEDS: PANTOPRAZOLE SOD 20 MG DELAYED RELEASE TAB PO SCH (13:37)
[2017-03-24] MEDS: FERROUS SULFATE 325 MG (65 MG ELEMENTAL IRON) TAB PO SCH (13:37)
[2017-03-24 13:45] VITALS: O2SAT 92
[2017-03-24] MEDS ORDERED: ERGOCALCIFEROL (VIT D2) 50,000 UNIT CAP PO ONE (15:00)
--- NOTE | 2017-03-24 15:01 | EKG ---
Date Performed: 03/23/2017 Time Performed: 09:36:13 PTAGE: 82 years EKG: Sinus rhythm MARKED LEFT AXIS DEVIATION LOW QRS VOLTAGE IN PRECORDIAL LEADS POSSIBLE RIGHT VENTRICULAR CONDUCTION DELAY ABNORMAL ECG PREVIOUS TRACING : 11/15/2015 10.50 Compared to prior tracing no significant change DOCTOR: Stephany Heredia Interpretating Date/Time 03/24/2017 14:54:28
[2017-03-24 16:00] VITALS: BP 97/44; PULSE 110; RESP 18; TEMP 98.9; O2SAT 93
[2017-03-24 20:25] VITALS: BP 110/60; PULSE 89; RESP 16; TEMP 99.3; O2SAT 94
[2017-03-25 00:10] VITALS: BP 104/51; PULSE 88; RESP 17; TEMP 98.6; O2SAT 92
[2017-03-25] MEDS: ACETAMINOPHEN/HYDROcodone 325 MG/5 MG TAB PO PRN ×2 (00:41→09:48)
[2017-03-25] MEDS: LEVOTHYROXINE SODIUM 150 MCG TAB PO SCH (04:32)
[2017-03-25 04:35] VITALS: BP 106/56; PULSE 79; RESP 17; TEMP 97.7; O2SAT 92
--- NOTE | 2017-03-25 06:43 | PD.ORT.PN ---
Subjective Subjective Remarks POD 1 s/p left hip perc pinning doing well. pain controlled Objective Vitals Vital Signs Date Time Temp Pulse Resp B/P (MAP) Pulse Ox O2 Delivery O2 Flow Rate FiO2 03/25/17 04:35 97.7 79 17 106/56 (73) 92 03/25/17 00:10 98.6 88 17 104/51 (68) 92 03/24/17 21:37 21 03/24/17 20:25 99.3 89 16 110/60 (77) 94 03/24/17 16:00 98.9 110 18 97/44 (61) 93 03/24/17 13:45 92 21 03/24/17 12:00 97.8 100 18 111/61 (78) 96 03/24/17 10:25 69 16 98 Nasal Cannula 2 03/24/17 10:15 68 16 113/66 (82) 97 Nasal Cannula 2 03/24/17 08:45 98.5 79 12 117/56 (76) 100 Nasal Cannula 3 I/O 03/24/17 03/24/17 03/24/17 03/25/17 03/25/17 03/25/17 07:00 15:00 23:00 07:00 15:00 23:00 Intake Total 1040 ml 498 ml 100 ml Output Total 825 ml 450 ml Balance 215 ml 48 ml 100 ml Intake Oral 240 ml 120 ml IV Total 378 ml 100 ml Other 800 ml Output Urine Total 800 ml 450 ml Estimated Blood Loss 25 ml # Voids 2 # Bowel Movements 0 0 Result Diagram: 03/23/17 0515 03/23/17 0515 Imaging Last [address] 03/23/17 0000 Signed Impressions: Service Date/Time: Thursday, March 23, 2017 06:29 - CONCLUSION: 1. Subcapital femoral neck fracture left hip. Aren Davidson MD Knee X-Ray 03/23/17 0000 Signed Impressions: Service Date/Time: Thursday, March 23, 2017 05:23 - CONCLUSION: Severe osteoarthritis without fracture. Small joint effusion. Aren Davidson MD Hip and Pelvis X-Ray 03/23/17 0000 Signed Impressions: Service Date/Time: Thursday, March 23, 2017 05:23 - CONCLUSION: Suspected nondisplaced femoral neck fracture. Aren Davidson MD Head CT 03/23/17 Signed Impressions: Service Date/Time: Thursday, March 23, 2017 06:23 - CONCLUSION: Cerebral atrophy and chronic ischemic small vessel vasculopathy. Aren Davidson MD Chest X-Ray 03/23/17 Signed Impressions: Service Date/Time: Thursday, March 23, 2017 05:23 - CONCLUSION: No acute disease. Aren Davidson MD Cervical Spine CT 03/23/17 Signed Impressions: Service Date/Time: Thursday, March 23, 2017 06:23 - CONCLUSION: 1. No acute fracture or prevertebral soft tissue swelling. 2. Grade I anterolisthesis of C3 in relation to C4. 3. Bilateral neural foraminal narrowing from C3 through T1 which is most severe on the right at C5-6 and C7-T1. Cervical spondylosis at C5-6, C6-7, C7-T1 and to a lesser extent at C3- 4 and C4-5. 4. Mild spinal stenosis at C7-T1. Bo Snell MD Objective Remarks LLE: dressings clean and dry. intact. NVI Assessment & Plan Assessment and Plan 1) Left minimally displaced femoral neck fracture s/p perc pinning - POD 1 -TTWB -daily dressing changes -CM for rehab placement -f/u with Lori or MICHAEL in 2 weeks Festus Watkins Mar 25, 2017 06:43
[2017-03-25] MEDS ORDERED: ENOXAPARIN SODIUM 30 MG/0.3 ML SYRINGE SQ SCH (07:00)
[2017-03-25 07:13] LABS: REVIEW FLAG FINAL
[2017-03-25 08:00] VITALS: BP 108/50; PULSE 86; RESP 18; TEMP 98.5; O2SAT 92
--- NOTE | 2017-03-25 08:35 | HHI.DS ---
Discharge Summary Admission Date Mar 23, 2017 at 09:03 Discharge Date: Mar 25, 2017 Admitting Diagnosis fracture left femoral neck (1) UTI (urinary tract infection) ICD Code: N39.0 - Urinary tract infection, site not specified Status: Acute (2) Leukopenia ICD Code: D72.819 - Decreased white blood cell count, unspecified Status: Chronic (3) Severe anemia ICD Code: D64.9 - Anemia, unspecified Status: Chronic (4) Colorectal tumor ICD Code: D49.0 - Neoplasm of unspecified behavior of digestive system Status: Acute (5) SHILO (acute kidney injury) ICD Code: N17.9 - Acute kidney failure, unspecified Status: Resolved (6) Colorectal cancer ICD Code: C19 - Malignant neoplasm of rectosigmoid junction Status: Acute (7) Sjogren's disease ICD Code: M35.00 - Sicca syndrome, unspecified Status: Chronic (8) Hypothyroidism ICD Code: E03.9 - Hypothyroidism, unspecified Status: Chronic (9) Neuropathy ICD Code: G62.9 - Polyneuropathy, unspecified Status: Chronic (10) Left displaced femoral neck fracture ICD Code: S72.002A - Fracture of unspecified part of neck of left femur, initial encounter for closed fracture (11) Dementia ICD Code: F03.90 - Unspecified dementia without behavioral disturbance Status: Chronic (12) Osteoarthritis ICD Code: M19.90 - Unspecified osteoarthritis, unspecified site Status: Chronic (13) Cervical spinal stenosis ICD Code: M48.02 - Spinal stenosis, cervical region Status: Chronic (14) Postoperative anemia due to acute blood loss ICD Code: D62 - Acute posthemorrhagic anemia Status: Acute (15) Impaired mobility and activities of daily living ICD Code: Z74.09 - Other reduced mobility Status: Acute (16) Parkinson disease ICD Code: G20 - Parkinson's disease Status: Chronic Procedures Minimally displaced left femoral neck fracture s/p Left hip pinning by Dr Sandoval ortho 03/24/17 Brief History - From Admission 82-year-old white female being admitted for suspected left femoral neck fracture nondisplaced History is limited from patient, was able to speak and get some information provided a secondhand from morning nurse who got report from night nurse at assisted living facility if patient. Patient apparently was in her usual state of health until some time last night when she attempted to use the restroom on her own without calling for help and had a mechanical fall. Fall was unwitnessed. Patient herself denies any shortness of breath chest pain or palpitations before during or after the fall. Daughter also suspects that this was mechanical fall, no past medical history of losing consciousness. Daughter denies any significant anesthesia issues with the patient in the past during her recovery phase. Daughter does mention that the patient has had wound care for a decubitus ulcer at the long-term and would like for this to continue as well while inpatient. CBC/BMP: 03/25/17 0616 03/23/17 0515 Significant Findings Laboratory Tests Test 03/23/17 05:15 03/24/17 07:55 03/24/17 09:48 03/25/17 06:16 Red Blood Count 3.31 MIL/MM3 (4.00-5.30) Hemoglobin 10.6 GM/DL (11.6-15.3) 8.9 GM/DL (11.6-15.3) Hematocrit 31.3 % (35.0-46.0) 26.0 % (35.0-46.0) Mean Platelet Volume 6.4 FL (7.0-11.0) Neutrophils (%) (Auto) 82.8 % (16.0-70.0) Lymphocytes (%) (Auto) 8.9 % (9.0-44.0) Lymphocytes # (Auto) 0.6 TH/MM3 (1.0-4.8) Blood Urea Nitrogen 25 MG/DL (7-18) Creatinine 1.20 MG/DL (0.50-1.00) Total Protein 8.6 GM/DL (6.4-8.2) Calcium Level 8.3 MG/DL (8.5-10.1) Alanine Aminotransferase (ALT/SGPT) 9 U/L (10-53) Estimat Glomerular Filtration Rate 43 ML/MIN (>89) Urine Turbidity CLOUDY (CLEAR) Urine Protein 30 mg/dL (NEG-TRACE) Urine Occult Blood SMALL (NEG) Urine Nitrite POS (NEG) Urine Leukocyte Esterase LARGE (NEG) Urine RBC 18 /hpf (0-3) Urine WBC 180 /hpf (0-5) Urine WBC Clumps MANY (NONE) Urine Bacteria MANY /hpf (NONE) 25-Hydroxy Vitamin D Total 17.7 ng/ML (30-100) Imaging Last Impressions Hip X-Ray 03/24/17 Signed Impressions: Service Date/Time: February 08:23 - CONCLUSION: Intraoperative images. Preston Jimenez MD Pelvis CT 03/23/17 Signed Impressions: Service Date/Time: Thursday, March 23, 2017 06:29 - CONCLUSION: 1. Subcapital femoral neck fracture left hip. Aren Davidson MD Knee X-Ray 03/23/17 Signed Impressions: Service Date/Time: Thursday, March 23, 2017 05:23 - CONCLUSION: Severe osteoarthritis without fracture. Small joint effusion. Aren Davidson MD Hip and Pelvis X-Ray 03/23/17 Signed Impressions: Service Date/Time: Thursday, March 23, 2017 05:23 - CONCLUSION: Suspected nondisplaced femoral neck fracture. Aren Davidson MD Head CT 03/23/17 Signed Impressions: Service Date/Time: Thursday, March 23, 2017 06:23 - CONCLUSION: Cerebral atrophy and chronic ischemic small vessel vasculopathy. Aren Davidson MD Chest X-Ray 03/23/17 Signed Impressions: Service Date/Time: Thursday, March 23, 2017 05:23 - CONCLUSION: No acute disease. Aren Davidson MD Cervical Spine CT 03/23/17 Signed Impressions: Service Date/Time: Thursday, March 23, 2017 06:23 - CONCLUSION: 1. No acute fracture or prevertebral soft tissue swelling. 2. Grade I anterolisthesis of C3 in relation to C4. 3. Bilateral neural foraminal narrowing from C3 through T1 which is most severe on the right at C5-6 and C7-T1. Cervical spondylosis at C5-6, C6-7, C7-T1 and to a lesser extent at C3- 4 and C4-5. 4. Mild spinal stenosis at C7-T1. Bo Snell MD PE at Discharge GENERAL: Mild distress secondary to pain, keeping her eyes closed, daughter mentions that her eyes are sensitive due to her Sjogren's syndrome CARDIOVASCULAR: Regular rate and rhythm. no murmurs RESPIRATORY: No accessory muscle use. Clear to auscultation. Breath sounds equal bilaterally. GASTROINTESTINAL: Abdomen soft, non-tender, nondistended. Extremities: No clubbing, cyanosis, or edema. Right knee with mild effusion and bruising anteriorly; pt not wanting to move her left leg; has intact sensation and pedal pulse BL MUSCULOSKELETAL: Extremities without clubbing, cyanosis, or edema. No obvious deformities. grossly intact ROM with 5/5 strength in upper extremities proximally NEUROLOGICAL: Awake and alert. No obvious cranial nerve deficits. No facial droop nor slurred speech noted. Pt update on day of discharge In bed say kaitlynn is fairy controlled by meds. No n/v/d/c. Denies any chest pain or sob. Hospital Course 82-year-old white female being admitted for nondisplaced left femoral neck fracture Minimally displaced left femoral neck fracture s/p Left hip pinning by Dr Sandoval ortho 03/24/17 - independently reviewed the plain film which shows a possible nondisplaced neck fx, ortho consulted - will be cautiously with IV pain medications due to low blood pressure, continue home [place] medications nonetheless - For now will be made nothing by mouth except medications unless indicated by Ortho otherwise - Fall precautions - will need Lovenox postop, per surg Parkinson's disease - Continue home carbidopa levodopa Neuropathic pain - Continue home Lyrica Hypothyroidism - Continue home levothyroxine Iron deficiency anemia - Continue home iron Sjogren's syndrome - continue home Plaquenil and eye drops Possible decubitus ulcer - Not examined during admission to minimize pain for patient, we'll place wound care consult. Will hold off on home diphenhydramine unless pt reports itching - may cause confusion at her age due to anticholinergic effect. Code status: DO NOT RESUSCITATE. DVT ppx scd/teds, chemical ppx per surgeon Discussed with the patient, nurse, family at bedside. DC plan : Improved, DC to [place] inpatient rehab, to follow up as OP with PCP and consultants. Pt Condition on Discharge: Stable Discharge Disposition: Rehab Inpatient Discharge Time: > 30 minutes Discharge Instructions DIET: Follow Instructions for: Diabetic Diet Activities you can perform: Regular-No Restrictions Other Activity Instructions: TTWB Follow up Referrals: Orthopedics - 2 Weeks [facility] with Porter Sandoval MD PCP Follow-up - 2-3 Days New Medications: Calcium Carbonate-Vitamin D (Calcium 600+D 200) 600-200 Mg-Unit Tab 1 TAB PO BID for Nutritional Supplement, #90 TAB 0 Refills Ergocalciferol (Ergocalciferol) 50,000 Unit Cap 14693 UNITS PO Q7D for Nutritional Supplement, #8 CAP Hydrocodone-Acetaminophen ([place]) 5-325 mg Tab 1 TAB PO Q4H PRN for PAIN, #40 TAB 0 Refills Rivaroxaban (Xarelto) 10 Mg Tab 10 MG PO DAILY for Blood Clot Prevention, #21 TAB 0 Refills Walker/Adult/Folding (Walker/Adult/Folding) 1 Mis Mis EA .ROUTE DIRECTED, #1 0 Refills Continued Medications: Carbidopa-Levodopa (Sinemet) 25-100 Mg Tab 1 TAB PO QID for Parkinson Disease Mgmt, #90 TAB 0 Refills Carbidopa-Levodopa (Carbidopa-Levodopa) 10-100 Mg Tab 1 TAB PO QID for Parkinson Disease Mgmt, #90 TAB 0 Refills Cholecalciferol (Vitamin D3) 1,000 Unit Tab 1000 UNITS PO DAILY for Nutritional Supplement, #1 BOTTLE 0 Refills Cranberry (Vaccinium Macrocarpon) (Cranberry) 400 Mg Cap 1 CAP PO BID Diphenhydramine-Acetaminophen (Mapap Pm) 25-500 Mg Tab 1 CAP PO HS Ferrous Sulfate (Ferrous Sulfate) 325 Mg (65 Mg Iron) Tablet 325 MG PO DAILY for Nutritional Supplement, #30 TAB 0 Refills Hydrocodone-Acetaminophen (Lortab) 5-325 Mg Tab 1 TAB PO DIRECTED PRN for PAIN, TAB 0 Refills Hydroxychloroquine (Plaquenil) 200 Mg Tab 200 MG PO DAILY, #30 TAB 0 Refills Take with food Levothyroxine (Levothyroxine) 150 Mcg Tab 150 MCG PO DAILY for Thyroid, #30 TAB 0 Refills Melatonin (Melatonin) 5 Mg Tab 3 MG PO HS for Provide Good Sleep, TAB 0 Refills Multiple Vitamin (Multiple Vitamin) 1 Tab 1 TAB PO DAILY for Nutritional Supplement, TAB Nystatin Topical (Nystatin Topical) 1 Powd 1 APPL TOPICAL BID PRN for candidiasis rash, CONTAINER Omeprazole (Omeprazole) 20 Mg Tab 20 MG PO DAILY, #30 TAB 0 Refills Pregabalin (Lyrica) 75 Mg Cap 75 MG PO BID, #60 CAP 0 Refills Propylene Glycol-Glycerin Opth Drops (Artificial Tears Opth Drops) 1-0.3% Drops 1-2 DROP EACH EYE TID PRN for DRY EYE, #15 ML 0 Refills Mirta Lomeli MD Mar 25, 2017 08:35
[2017-03-25] MEDS: PANTOPRAZOLE SOD 20 MG DELAYED RELEASE TAB PO SCH (08:36)
[2017-03-25] MEDS: HYDROXYCHLOROQUINE SULFATE 200 MG TAB PO SCH (08:36)
[2017-03-25] MEDS: FERROUS SULFATE 325 MG (65 MG ELEMENTAL IRON) TAB PO SCH (08:36)
[2017-03-25] MEDS: MULTIVITAMIN TAB PO SCH (08:36)
[2017-03-25] MEDS: CARBIDOPA/LEVODOPA 25 MG/100 MG TAB PO SCH (08:36)
[2017-03-25] MEDS: PREGABALIN 75 MG CAP PO SCH (08:37)
[2017-03-25] MEDS: SODIUM CHLORIDE 0.9% FLUSH 5 ML FLUSH IVF SCH (08:37)
[2017-03-25] MEDS ORDERED: CHOLECALCIFEROL (VIT D3) 5000 UNIT CAP PO SCH (09:00)
[2017-03-25] MEDS ORDERED: XARE10TA PO (15:01)
[2017-03-25] MEDS ORDERED: DOCUSATE SODIUM 100 MG CAP PO SCH (21:00)
== END 2017-03-25 12:41 | DRG 481 ==
LOC: PHED 05:04 → PHEDA 09:03 → N06B 13:55
PROVIDERS: ADMIT Hospitalist; ATTEND Hospitalist
PROC: 0QS734Z Reposition Left Upper Femur with Internal Fixation Device, Percutaneous Approach (ICD-10-PCS; principal; 2017-03-24 07:42)
DX: S72.012A Unspecified intracapsular fracture of left femur, initial encounter for closed fracture (principal); N17.9 Acute kidney failure, unspecified; G20 Parkinson's disease; N39.0 Urinary tract infection, site not specified; G62.9 Polyneuropathy, unspecified; M48.02 Spinal stenosis, cervical region; M35.00 Sjogren syndrome, unspecified; D62 Acute posthemorrhagic anemia; F02.80 Dementia in other diseases classified elsewhere, unspecified severity, without behavioral disturbance, psychotic disturbance, mood disturbance, and anxiety; F32.9 Major depressive disorder, single episode, unspecified; M19.90 Unspecified osteoarthritis, unspecified site; W01.0XXA Fall on same level from slipping, tripping and stumbling without subsequent striking against object, initial encounter; F41.9 Anxiety disorder, unspecified; I25.10 Atherosclerotic heart disease of native coronary artery without angina pectoris; M79.7 Fibromyalgia; K21.9 Gastro-esophageal reflux disease without esophagitis; Z96.651 Presence of right artificial knee joint; E03.9 Hypothyroidism, unspecified; D50.9 Iron deficiency anemia, unspecified; E78.00 Pure hypercholesterolemia, unspecified; G89.29 Other chronic pain; M54.9 Dorsalgia, unspecified; I34.1 Nonrheumatic mitral (valve) prolapse; Z66 Do not resuscitate; M81.0 Age-related osteoporosis without current pathological fracture; M25.462 Effusion, left knee; Z87.891 Personal history of nicotine dependence; Z87.11 Personal history of peptic ulcer disease
CPT/HCPCS: 70450; 71010; 72125; 72192; 73502; 73564; 76000; 80053; 81001; 82306; 85014; 85018; 85025; 85610; 85730; 86077; 86850; 86870; 86880; 86900; 86901; 86920; 86922; 87077; 87086; 87186; 93005; 96361; 96374; 96375; J0131; J0690; J1580; J1650; J2270; J2405; J3370; J7030; J7120

== ENCOUNTER 2017-06-24 21:08 | Observation (INO) | payer MEDICARE ==
[~2017-06-24] VITALS: Ht 180.3 cm; Wt 67.7 kg
[~2017-06-24 21:08] MED LIST changes: -ACIDCAP; +ARTIDRO EACH EYE; -CALC500T35; +CALCTAB19 PO; -CARB10TA2 PO; -CIPR-9 PO; -DIPH1TAB36; -ENSULIQ; -FERR325T PO; +FERR325T18 PO; -GABA600T PO; -HYDR-3516 PO; +HYDR-3583 PO; -KETO2AER3; +LYRI100C PO; +MELA1TAB31 PO; -OMEP20CA2; +OMEP20TA93 PO; +PREG25 PO; +SENN1TAB PO; +VITA100064 PO; +VITA500012 PO; +WALKER/ADULT/FO1 MIS; +XARE10TA PO
[2017-06-24 21:17] VITALS: BP 102/55; PULSE 80; RESP 20; TEMP 98.9; O2SAT 97
[2017-06-24 21:22] VITALS: RESP 20
[2017-06-24] MEDS ORDERED: SODIUM CHLORIDE 0.9% FLUSH 10 ML FLUSH IVF PRN (21:30)
[2017-06-24 21:32] VITALS: BP 105/57; PULSE 78; RESP 20; TEMP 99; O2SAT 98
[2017-06-24 22:27] LABS: AUTOMATED NEUTROPHIL # 4.1 TH/MM3 (1.8-7.7); BASOPHIL % 0.6 % (0.0-2.0); EOSINOPHIL # 0.1 TH/MM3 (0-0.4); EOSINOPHIL % 2.4 % (0.0-4.0); HEMATOCRIT 25.1 % (35.0-46.0); HEMOGLOBIN 8.5 GM/DL (11.6-15.3); LYMPHOCYTE # 0.9 TH/MM3 (1.0-4.8); MEAN CELL VOLUME 91.7 FL (80.0-100.0); MEAN CORPUSCULAR HEMOGLOBIN 30.8 PG (27.0-34.0); MEAN CORPUSCULAR HGB CONC 33.6 % (32.0-36.0); MEAN PLATELET VOLUME 8.2 FL (7.0-11.0); MONO % 10.6 % (0.0-8.0); MONOCYTE # 0.6 TH/MM3 (0-0.9); NEUT % 71.4 % (16.0-70.0); PLATELET COUNT 238 TH/MM3 (150-450); RED BLOOD COUNT 2.74 MIL/MM3 (4.00-5.30); RED CELL DISTRIBUTION WIDTH 16.4 % (11.6-17.2); WHITE BLOOD COUNT 5.7 TH/MM3 (4.0-11.0)
[2017-06-24 22:39] VITALS: BP 99/59; PULSE 80; RESP 20; O2SAT 98
[2017-06-24] MEDS ORDERED: DEXT1CAP5 PO ×2 (22:43)
[2017-06-24] MEDS ORDERED: VITA250C3 CHEW (22:43)
[2017-06-24] MEDS ORDERED: SYSTSOL EACH EYE (22:43)
[2017-06-24] MEDS ORDERED: CEFT1INJ IM (22:43)
[2017-06-24] MEDS ORDERED: FERR325T18 PO (22:43)
[2017-06-24] MEDS ORDERED: MILKSUS PO (22:43)
[2017-06-24] MEDS ORDERED: QUES4POW2 PO (22:43)
[2017-06-24] MEDS ORDERED: SENN1TAB PO (22:43)
[2017-06-24] MEDS ORDERED: IPRASOL INH (22:43)
[2017-06-24 22:45] LABS: INTERNATIONAL NORMALIZED RATIO 1.2 RATIO; PROTHROMBIN TIME - PATIENT 12.6 SEC (9.8-11.6)
[2017-06-24 23:06] LABS: BICARBONATE 26.3 MEQ/L (21.0-32.0); CALCIUM 8.4 MG/DL (8.5-10.1); CREATININE 1.79 MG/DL (0.50-1.00)
[2017-06-24 23:25] VITALS: BP 109/49; PULSE 70; RESP 20; O2SAT 98
[2017-06-24 23:27] LABS: BACTERIA, URINE OCC /hpf; BILIRUBIN, URINE NEG (NEG); BLOOD, URINE LARGE (NEG); GLUCOSE,URINE NEG (NEG); KETONE, URINE TRACE mg/dL (NEG); NITRITE,URINE POS (NEG); SQUAMOUS EPITHELIAL CELL URINE 64 /hpf (0-5); URINE LEUKOCYTE ESTERASE SMALL (NEG)
[2017-06-24 23:28] LABS: URINE COLOR DARK-RED (YELLW/STRAW)
[2017-06-25] VITALS (17 sets, daily range): BP systolic 95–111; BP diastolic 41–69; PULSE 61–81; RESP 16–18; TEMP 97.1–98.7; O2SAT 91–100
--- NOTE | 2017-06-25 00:34 | RADRPT ---
EXAM DATE/TIME: 06/24/2017 23:53 [facility] COMPARISON: No previous studies available for comparison. INDICATIONS : Abdominal pain. ORAL CONTRAST: No oral contrast ingested. RADIATION DOSE: 6.64 CTDIvol (mGy) MEDICAL HISTORY : Carcinoma, bladder. Carcinoma, colon. Parkinsons. SURGICAL HISTORY : Cholecystectomy. Colon resection.Fusion, lumbar.Hip replacement. ENCOUNTER: Initial ACUITY: 1 day PAIN SCALE: Non-responsive LOCATION: abdomen TECHNIQUE: Volumetric scanning of the abdomen and pelvis was performed. Using automated exposure control and ad justment of the mA and/or kV according to patient size, radiation dose was kept as low as reasonably achievable to obtain optimal diagnostic quality images. DICOM format image data is available electro nically for review and comparison. FINDINGS: LOWER LUNGS: There is a small 4 mm nodule at the posterior medial left lung base. There some atelectasis or mild c onsolidation of the posterior right lung base. LIVER: Homogeneous density without lesion. There is no dilation of the biliary tree. The patient is status post cholecystectomy. SPLEEN: Normal size without lesion. Calcified granulomas are seen. PANCREAS: Within normal limits. KIDNEYS: Normal in size and shape. There is no mass, stone, or hydronephrosis. ADRENAL GLANDS: Within normal limits. VASCULAR: There is no aortic aneurysm. Atherosclerotic calcifications are seen. BOWEL/MESENTERY: The patient appears to be status post right colectomy with bowel anastomosis sutures seen in the righ t mid abdomen at the proximal transverse colon region. There are colonic diverticula. Significant inf lammatory change is not seen. ABDOMINAL WALL: Within normal limits. RETROPERITONEUM: There is no lymphadenopathy. BLADDER: Air is seen within the urinary bladder. REPRODUCTIVE: Within normal limits. INGUINAL: There is no lymphadenopathy or hernia. MUSCULOSKELETAL: Stabilization rods and transpedicular screws are seen at the L1-S1 levels. The left L2 screw does not extend into the L2 vertebral body. There are compressive changes at the superior aspect of L1. There are screws seen through the proximal left femur for a subcapital femoral neck fracture. The fracture line can still be seen. The screws are not flush with the lateral aspect of the femur. There is flui d seen posterior to the left femoral greater trochanter. CONCLUSION: 1. Acute abnormality is not seen. 2. Colonic diverticula. 3. 4 mm nodule in the posterior medial left lower lobe. This could be followed with a CT examination in 6 months. 4. Chronic change in the lumbar spine and left femur. There is postoperative change in these regions. Abbe Thomas MD on June 25, 2017 at 0:24 Board Certified Radiologist. This report was verified electronically.
[2017-06-25] MEDS ORDERED: cefTRIAXone INJ 1,000 MG in SODIUM CHLORIDE 0.9% INJ 100 ML IV ONE (00:45)
--- NOTE | 2017-06-25 00:55 | PD ---
HPI Chief Complaint: Bleeding Time Seen by Provider: 21:20 Travel History International Travel<30 days: No Contact w/Intl Traveler<30days: No Traveled to known affect area: No History of Present Illness HPI 82-year-old female arrives from assisted living facility where she was found to have blood in her diapers. She takes Xarelto for atrial fibrillation. History is provided by nursing documentation. Location genitourinary. Duration about one afternoon. Severity moderate. PFSH Past Medical History Arthritis: Yes Asthma: No Autoimmune Disease: Yes Blood Disorders: No Anxiety: Yes Depression: Yes Heart Rhythm Problems: Yes Cancer: Yes (RESECTION) Cardiovascular Problems: Yes (MITRAL VALVE PROLAPSE) High Cholesterol: Yes Chemotherapy: No Chest Pain: No Congestive Heart Failure: No COPD: No Cerebrovascular Accident: No Coronary Artery Disease: Yes Diabetes: No Diminished Hearing: Yes Endocrine: No Fibromyalgia: Yes Gastrointestinal Disorders: Yes ( GASTROENTERITIS; GI BLEED IN PAST) GERD: Yes Genitourinary: Yes Headaches: No Hiatal Hernia: No Hypertension: No Immune Disorder: Yes (FIBROMYALGIA) Implanted Vascular Access Dvce: Yes Kidney Stones: No Musculoskeletal: Yes (DJD, SPINAL STENOSIS) Neurologic: Yes (PARKINSONS; DEMENTIA) Parkinson's Disease: Yes Psychiatric: No Reproductive: No Respiratory: Yes Immunizations Current: Yes Migraines: No Radiation Therapy: No Renal Failure: No Seizures: No Sickle Cell Disease: No Sleep Apnea: No Thyroid Disease: Yes Ulcer: Yes Tetanus Vaccination: Unknown Influenza Vaccination: Yes ?: Not Menopausal: Yes Past Surgical History Abdominal Surgery: Yes (CHOLECYSTECTOMY, Colon re-section) AICD: No Arteriovenous Shunt: Yes Cardiac Surgery: No Section: Yes (1961 and 1964) Cholecystectomy: Yes Ear Surgery: No Endocrine Surgery: No Eye Surgery: Yes (bilateral cataracts) Genitourinary Surgery: No Gynecologic Surgery: Yes (C-SECT) Insulin Pump: No Joint Replacement: Yes (RODS PLACED IN BACK, RIGHT KNEE) Neurologic Surgery: No Oral Surgery: Yes (Complete teeth removal) Pacemaker: No Thoracic Surgery: No Tonsillectomy: Yes Other Surgery: Yes ("back,laminectomy and fusion,annika") Family History Family Hypercholesterolemia: Yes Social History Alcohol Use: No Tobacco Use: No Substance Use: No Allergies-Medications (Allergen,Severity, Reaction): Coded Allergies: *MDRO Multi-Drug Resistant Organism (Verified Allergy, Unknown, 03/23/17) Reported Meds & Prescriptions Reported Meds & Active Scripts Active Gnp Melatonin Maximum Str (Melatonin) 5 Mg Tab 5 Mg PO HS PRN Senna Plus 8.6-50 mg (Sennosides-Docusate Sodium) 8.6 Mg-50 Mg Tab 1 Tab PO BID Lyrica (Pregabalin) 100 Mg Cap 100 Mg PO BID Hydrocodone-Acetaminophen 10-325 mg Tab 1 Tab PO Q4H PRN Calcium 600+D 200 (Calcium Carbonate-Vitamin D) 600-200 Mg-Unit Tab 1 Tab PO BID Ergocalciferol 50,000 Unit Cap 50,000 Units PO Q7D Xarelto (Rivaroxaban) 10 Mg Tab 10 Mg PO DAILY Artificial Tears Opth Drops (Propylene Glycol-Glycerin Opth Drops) 1-0.3% Drops 1-2 Drop EACH EYE TID PRN Vitamin D3 (Cholecalciferol) 1,000 Unit Tab 1,000 Units PO DAILY Levothyroxine (Levothyroxine Sodium) 150 Mcg Tab 150 Mcg PO DAILY Omeprazole 20 Mg Tab 20 Mg PO DAILY Plaquenil (Hydroxychloroquine Sulfate) 200 Mg Tab 200 Mg PO DAILY Take with food Multiple Vitamin 1 Tab 1 Tab PO DAILY Walker/Adult/Folding (Device) 1 Mis Mis Ea .ROUTE DIRECTED Reported Milk of Magnesia Liq (Magnesium Hydroxide) 400 Mg/5 Ml Susp 15 Ml PO DAILY PRN Senna-Plus (Sennosides-Docusate Sodium) 8.6-50 Mg Tab 1 Tab PO BID Questran (Cholestyramine) 4 Gm/Dose Powd 4 Gm PO TID 1 level scoopful of powder contains 4 grams of cholestyramine. Vitamin C (Ascorbic Acid) 250 Mg Chew 500 Mg CHEW BID Ferrous Sulfate 325 Mg (65 Mg Iron) Tablet 325 Mg PO BIDPC Systane Opth Drops (Polyethylene Glycol-Propylene Glycol Opth Drp) 0.4-0.3% Soln 1-2 Drop EACH EYE PRN PRN Duoneb (Ipratropium-Albuterol Neb) 0.5-2.5 Mg/3 Ml Neb 1 Nebule INH DAILY Robitussin Cough Chest Congestion (Dextromethorphan-Guaifenesin) 10-200 Mg Cap 1 Cap PO Q4H PRN Robitussin Cough Chest Congestion (Dextromethorphan-Guaifenesin) 10-200 Mg Cap 1 Cap PO Q4H PRN Ceftriaxone Inj (Ceftriaxone Sodium) 1 Gram Inj 1 Gm IM Q24H Cranberry (Cranberry (Vaccinium Macrocarpon)) 400 Mg Cap 1 Cap PO BID Review of Systems ROS Limitations: Clinical Condition Physical Exam Narrative GENERAL: 82-year-old female dementia mild agitation GENITOURINARY: Vaginal mucosa is intact minimal blood pools in the vault. SKIN: Warm and dry. HEAD: Atraumatic. Normocephalic. EYES: Pupils equal and round. No scleral icterus. No injection or drainage. ENT: No nasal bleeding or discharge. Mucous membranes pink and moist. NECK: Trachea midline. No JVD. CARDIOVASCULAR: Regular rate and rhythm. RESPIRATORY: No accessory muscle use. Clear to auscultation. Breath sounds equal bilaterally. GASTROINTESTINAL: Abdomen soft, non-tender, nondistended. Hepatic and splenic margins not palpable. MUSCULOSKELETAL: Extremities without clubbing, cyanosis, or edema. No obvious deformities. NEUROLOGICAL: Patient does not answer questions. Patient moves all extremities normally. PSYCHIATRIC: Mental agitation. Data Data Last Documented VS Vital Signs Date Time Temp Pulse Resp B/P (MAP) Pulse Ox O2 Delivery O2 Flow Rate FiO2 06/24/17 23:25 70 20 109/49 (69) 98 Room Air 06/24/17 21:32 99.0 Orders Orders Basic Metabolic Panel (Bmp) (06/24/17 21:20) Complete Blood Count With Diff (06/24/17 21:20) Prothrombin Time / Inr (Pt) (06/24/17 21:20) Act Partial Throm Time (Ptt) (06/24/17 21:20) Urinalysis - C+S If Indicated (06/24/17 21:20) Type And Screen (06/24/17 21:20) Ecg Monitoring (06/24/17 21:20) Iv Access Insert/Monitor (06/24/17 21:20) Oximetry (06/24/17 21:20) Sodium Chloride 0.9% Flush (Ns Flush) (06/24/17 21:30) ^ Straight Catheter (06/24/17 22:34) Ct Abd/Pel W/O Iv Contrast (06/24/17 ) Urine Culture (06/24/17 22:10) Red Blood Cells (Rbc) (06/24/17 21:45) Ceftriaxone Inj (Rocephin Inj) (06/25/17 00:45) Labs Laboratory Tests Test 06/24/17 21:45 06/24/17 22:10 White Blood Count 5.7 TH/MM3 Red Blood Count 2.74 MIL/MM3 Hemoglobin 8.5 GM/DL Hematocrit 25.1 % Mean Corpuscular Volume 91.7 FL Mean Corpuscular Hemoglobin 30.8 PG Mean Corpuscular Hemoglobin Concent 33.6 % Red Cell Distribution Width 16.4 % Platelet Count 238 TH/MM3 Mean Platelet Volume 8.2 FL Neutrophils (%) (Auto) 71.4 % Lymphocytes (%) (Auto) 15.0 % Monocytes (%) (Auto) 10.6 % Eosinophils (%) (Auto) 2.4 % Basophils (%) (Auto) 0.6 % Neutrophils # (Auto) 4.1 TH/MM3 Lymphocytes # (Auto) 0.9 TH/MM3 Monocytes # (Auto) 0.6 TH/MM3 Eosinophils # (Auto) 0.1 TH/MM3 Basophils # (Auto) 0.0 TH/MM3 CBC Comment DIFF FINAL Differential Comment Prothrombin Time 12.6 SEC Prothromb Time International Ratio 1.2 RATIO Activated Partial Thromboplast Time 28.6 SEC Blood Urea Nitrogen 46 MG/DL Creatinine 1.79 MG/DL Random Glucose 91 MG/DL Calcium Level 8.4 MG/DL Sodium Level 141 MEQ/L Potassium Level 4.7 MEQ/L Chloride Level 109 MEQ/L Carbon Dioxide Level 26.3 MEQ/L Anion Gap 6 MEQ/L Estimat Glomerular Filtration Rate 27 ML/MIN Urine Color DARK-RED Urine Turbidity HAZY Urine pH 6.0 Urine Specific [place] 1.018 Urine Protein 100 mg/dL Urine Glucose (UA) NEG mg/dL Urine Ketones TRACE mg/dL Urine Occult Blood LARGE Urine Nitrite POS Urine Bilirubin NEG Urine Urobilinogen LESS THAN 2.0 MG/DL Urine Leukocyte Esterase SMALL Urine RBC /hpf Urine WBC 107 /hpf Urine Squamous Epithelial Cells 64 /hpf Urine Bacteria OCC /hpf Microscopic Urinalysis Comment CULTURE INDICATED MDM Medical Decision Making Medical Screen Exam Complete: Yes Emergency Medical Condition: Yes Medical Record Reviewed: Yes Differential Diagnosis Anemia, renal failure, vaginal trauma, UTI Narrative Course CBC & BMP Diagram 06/24/17 21:45 Calcium Level 8.4 L Last Impressions Abdomen/Pelvis CT 06/24/17 0000 Signed Impressions: Service Date/Time: Saturday, June 24, 2017 23:53 - CONCLUSION: 1. Acute abnormality is not seen. 2. Colonic diverticula. 3. 4 mm nodule in the posterior medial left lower lobe. This could be followed with a CT examination in 6 months. 4. Chronic change in the lumbar spine and left femur. There is postoperative change in these regions. Abbe Thomas MD Urinalysis shows a UTI Anemia is about baseline for the patient The patient will be admitted for IV antibiotics and for ongoing monitoring cessation of Xarelto Discussed with Dr. Davis Diagnosis Primary Impression: UTI (urinary tract infection) Qualified Codes: N39.0 - Urinary tract infection, site not specified; R31.9 - Hematuria, unspecified Additional Impressions: Hemorrhagic cystitis SHILO (acute kidney injury) Admitting Information Admitting Physician Requests: Observation Flaquito Murphy MD Jun 25, 2017 00:55
[2017-06-25] MEDS ORDERED: BISACODYL 10 MG SUPP RECTAL PRN (01:00)
[2017-06-25] MEDS ORDERED: MAGNESIUM HYDROXIDE SUSP 30 ML CUP PO PRN (01:00)
[2017-06-25] MEDS ORDERED: LACTULOSE SYRUP 20 GM/30 ML CUP PO PRN (01:00)
[2017-06-25] MEDS ORDERED: SENNOSIDES 8.6 MG TAB PO PRN (01:00)
[2017-06-25] MEDS ORDERED: SODIUM CHLORIDE 0.9% FLUSH 10 ML FLUSH IV FLUSH PRN (01:00)
[2017-06-25] MEDS: SODIUM CHLOR 0.9% 1000 ML INJ 1,000 ML IV SCH ×3 (01:29→22:33)
--- NOTE | 2017-06-25 02:24 | HHI.HP ---
HPI [facility] Primary Care Physician Unknown Admission Diagnosis UTI, HEMATURIA Diagnoses: (1) UTI (urinary tract infection) Diagnosis: Principal (2) Hemorrhagic cystitis Diagnosis: Principal (3) Hypotension Diagnosis: Principal (4) SHILO (acute kidney injury) Diagnosis: Principal (5) Anemia Diagnosis: Principal (6) DNR (do not resuscitate) Diagnosis: Principal Travel History International Travel<30 Days: No Contact w/Intl Traveler <30 Da: No Traveled to Known Affected Are: No History of Present Illness This is an 82-year-old DNR female with a PMH of Anxiety, Depression, Fibromyalgia, Parkinson's and A-fib on Xarelto who was sent to the ER from SNF for eval of vaginal bleeding. Pt is poor historian, but is able to tell me she' s had dysuria x1 day, associated w/ frequency. No fever, chills, nausea or vomiting. Per SNF report, pt noted to have significant amount of blood in diaper. On arrival, BP 102/55, HR 80, O2 sat 97% on RA, Afebrile. While in ER , had episode of hypotension w/ BP 80's systolic, s/p IVF w/ some improvement. Hemoglobin 8.5, previously 9.0 on 04/14/17. Creatinine 1.79, previously 1.12 on 03/28/17. INR 1.2. UA positive for UTI and hematuria. CT Abd/Pelvis w/ no acute abnormality seen. S/p IV Abx in ER Review of Systems Except as stated in HPI: all other systems reviewed are Neg ROS: 14 point review of systems otherwise negative. Past Family Social History Past Medical History PMH: Anxiety, Depression, Fibromyalgia, Parkinson's and A-fib on Xarelto Past Surgical History PAST SURGICAL HISTORY: Cholecystectomy, AV Shunt, , Cataract Surgery, Right Knee Replacement, Lumbar Rods, Tonsillectomy Allergies: Coded Allergies: *MDRO Multi-Drug Resistant Organism (Verified Allergy, Unknown, 03/23/17) Family History PAST FAMILY HISTORY: Reviewed. No h/o DM or CAD Social History PAST SOCIAL HISTORY: Negative for alcohol, tobacco or drugs. Physical Exam Vital Signs Vital Signs Date Time Temp Pulse Resp B/P (MAP) Pulse Ox O2 Delivery O2 Flow Rate FiO2 06/24/17 23:25 70 20 109/49 (69) 98 Room Air 06/24/17 22:39 80 20 99/59 (72) 98 Room Air 06/24/17 21:32 99.0 78 20 105/57 (73) 98 Room Air 06/24/17 21:22 20 06/24/17 21:17 98.9 80 20 102/55 (71) 97 Physical Exam PE: GENERAL: Pleasant elderly white female in no acute distress. Mild baseline tremor. HEENT: PERRLA, EOMI. No scleral icterus or conjunctival pallor. No lid lag or facial droop. CARDIOVASCULAR: Regular rate and rhythm. No obvious murmurs to auscultation. No chest tenderness to palpation. RESPIRATORY: No obvious rhonchi or wheezing. Clear to auscultation. Breath sounds equal bilaterally. GASTROINTESTINAL: Abdomen soft, non-tender, nondistended. BS normal. MUSCULOSKELETAL: Extremities without clubbing, cyanosis, or edema. No obvious deformities. NEUROLOGICAL: Awake, alert, able to answer questions appropriately. No focal neurologic deficits. Moving both upper and lower extremities spontaneously. Laboratory Laboratory Tests Test 06/24/17 21:45 06/24/17 22:10 White Blood Count 5.7 Red Blood Count 2.74 Hemoglobin 8.5 Hematocrit 25.1 Mean Corpuscular Volume 91.7 Mean Corpuscular Hemoglobin 30.8 Mean Corpuscular Hemoglobin Concent 33.6 Red Cell Distribution Width 16.4 Platelet Count 238 Mean Platelet Volume 8.2 Neutrophils (%) (Auto) 71.4 Lymphocytes (%) (Auto) 15.0 Monocytes (%) (Auto) 10.6 Eosinophils (%) (Auto) 2.4 Basophils (%) (Auto) 0.6 Neutrophils # (Auto) 4.1 Lymphocytes # (Auto) 0.9 Monocytes # (Auto) 0.6 Eosinophils # (Auto) 0.1 Basophils # (Auto) 0.0 CBC Comment DIFF FINAL Differential Comment Prothrombin Time 12.6 Prothromb Time International Ratio 1.2 Activated Partial Thromboplast Time 28.6 Blood Urea Nitrogen 46 Creatinine 1.79 Random Glucose 91 Calcium Level 8.4 Sodium Level 141 Potassium Level 4.7 Chloride Level 109 Carbon Dioxide Level 26.3 Anion Gap 6 Estimat Glomerular Filtration Rate 27 Urine Color DARK-RED Urine Turbidity HAZY Urine pH 6.0 Urine Specific [place] 1.018 Urine Protein 100 Urine Glucose (UA) NEG Urine Ketones TRACE Urine Occult Blood LARGE Urine Nitrite POS Urine Bilirubin NEG Urine Urobilinogen LESS THAN 2.0 Urine Leukocyte Esterase SMALL Urine RBC Urine WBC 107 Urine Squamous Epithelial Cells 64 Urine Bacteria OCC Microscopic Urinalysis Comment CULTURE INDICATED Date/Time Source Procedure Growth Status 06/24/17 22:10 Urine Clean Catch Urine Culture Pending Received Result Diagram: 06/24/17214406/24/172144 Caprini VTE Risk Assessment Caprini VTE Risk Assessment: No/Low Risk (score <= 1) Caprini Risk Assessment Model Point Value = 1 Point Value = 2 Point Value = 3 Point Value = 5 Age 41-60 Minor surgery BMI > 25 kg/m2 Swollen legs Varicose veins or History of unexplained or recurrent spontaneous Oral contraceptives or hormone replacement Sepsis (< 1 month) Serious lung disease, including pneumonia (< 1 month) Abnormal pulmonary function Acute myocardial infarction Congestive heart failure (< 1 month) History of inflammatory bowel disease Medical patient at bed rest Age 61-74 Arthroscopic surgery Major open surgery (> 45 min) Laparoscopic surgery (> 45 min) Malignancy Confined to bed (> 72 hours) Immobilizing plaster cast Central venous access Age >= 75 History of VTE Family history of VTE Factor V Leiden Prothrombin [id number] Lupus anticoagulant Anticardiolipin antibodies Elevated serum homocysteine Heparin-induced thrombocytopenia Other congenital or acquired thrombophilia Stroke (< 1 month) Elective arthroplasty Hip, pelvis, or leg fracture Acute spinal cord injury (< 1 month) Prophylaxis Regimen Total Risk Factor Score Risk Level Prophylaxis Regimen 0-1 Low Early ambulation 2 Moderate Order ONE of the following: *Sequential Compression Device (SCD) *Heparin 5000 units SQ BID 3-4 Higher Order ONE of the following medications: *Heparin 5000 units SQ TID *Enoxaparin/Lovenox 40 mg SQ daily (WT < 150 kg, CrCl > 30 mL/min) *Enoxaparin/Lovenox 30 mg SQ daily (WT < 150 kg, CrCl > 10-29 mL/min) *Enoxaparin/Lovenox 30 mg SQ BID (WT < 150 kg, CrCl > 30 mL/min) AND/OR *Sequential Compression Device (SCD) 5 or more Highest Order ONE of the following medications: *Heparin 5000 units SQ TID (Preferred with Epidurals) *Enoxaparin/Lovenox 40 mg SQ daily (WT < 150 kg, CrCl > 30 mL/min) *Enoxaparin/Lovenox 30 mg SQ daily (WT < 150 kg, CrCl > 10-29 mL/min) *Enoxaparin/Lovenox 30 mg SQ BID (WT < 150 kg, CrCl > 30 mL/min) AND *Sequential Compression Device (SCD) Assessment and Plan Problem List: (1) UTI (urinary tract infection) ICD Code: N39.0 - Urinary tract infection, site not specified Status: Acute (2) Hemorrhagic cystitis ICD Code: N30.91 - Cystitis, unspecified with hematuria Status: Acute (3) SHILO (acute kidney injury) ICD Code: N17.9 - Acute kidney failure, unspecified Status: Resolved (4) Hypotension ICD Code: I95.9 - Hypotension, unspecified (5) Anemia ICD Code: D64.9 - Anemia, unspecified (6) DNR (do not resuscitate) ICD Code: Z66 - Do not resuscitate Assessment and Plan A/P: 1. UTI: U/a w/ UTI, symptomatic, c/o dysuria x1 day. S/p Rocephin IV in ER, continue w/ IV Abx, follow up cultures, IVF for hydration. 2. Hemorrhagic Cystitis: significant hematuria, monitor Hgb/Hct closely. Continue w/ IV Abx as above. Hold Xarelto for now in light of blood loss. 3. Hypotension: BP 80's while in ER, s/p IVF w/ improvement, monitor BP closely, hold antihypertensives. 4. Anemia: Hgb 8.5, previously 9.0 on 04/14/17, monitor closely in light of large amount of blood loss, repeat Hgb in am, transfuse as needed. 5. DNR: Code Status reviewed and confirmed, order in chart. 6. DVT Prophylaxis: Hold Xarelto secondary to above. 7. Social work for d/c planning as needed. 8. Labs/records/imaging reviewed by me, case discussed at length w/ ER physician. Problem Qualifiers (1) UTI (urinary tract infection): Qualified Codes: N39.0 - Urinary tract infection, site not specified; R31.9 - Hematuria, unspecified Felipa Davis MD Jun 25, 2017 02:24
[2017-06-25] MEDS: ACETAMINOPHEN/HYDROcodone 325 MG/5 MG TAB PO PRN ×2 (02:31→15:07)
[2017-06-25] MEDS: CHOLESTYRAMINE 4 GM PACKET PO SCH ×2 (08:00→11:15)
[2017-06-25 08:27] LABS: AUTOMATED NEUTROPHIL # 3.4 TH/MM3 (1.8-7.7); BASOPHIL % 0.5 % (0.0-2.0); EOSINOPHIL # 0.1 TH/MM3 (0-0.4); EOSINOPHIL % 2.7 % (0.0-4.0); HEMATOCRIT 22.5 % (35.0-46.0); HEMOGLOBIN 7.6 GM/DL (11.6-15.3); LYMPH % 15.9 % (9.0-44.0); LYMPHOCYTE # 0.8 TH/MM3 (1.0-4.8); MEAN CELL VOLUME 92.5 FL (80.0-100.0); MEAN CORPUSCULAR HEMOGLOBIN 31.3 PG (27.0-34.0); MEAN CORPUSCULAR HGB CONC 33.8 % (32.0-36.0); MEAN PLATELET VOLUME 7.7 FL (7.0-11.0); MONOCYTE # 0.4 TH/MM3 (0-0.9); NEUT % 71.9 % (16.0-70.0); PLATELET COUNT 182 TH/MM3 (150-450); RED BLOOD COUNT 2.43 MIL/MM3 (4.00-5.30); RED CELL DISTRIBUTION WIDTH 16.5 % (11.6-17.2); WHITE BLOOD COUNT 4.8 TH/MM3 (4.0-11.0)
[2017-06-25] MEDS ORDERED: SODIUM CHLOR 0.9% 250 ML INJ 250 ML IV ONE (09:00)
[2017-06-25] MEDS: SODIUM CHLORIDE 0.9% FLUSH 10 ML FLUSH IV FLUSH SCH ×2 (09:00→22:33)
[2017-06-25 09:01] LABS: ALBUMIN 2.7 GM/DL (3.4-5.0); ALT (GPT) LESS THAN 6 U/L (10-53); AST (GOT) 21 U/L (15-37); BICARBONATE 25.2 MEQ/L (21.0-32.0); BLOOD UREA NITROGEN 43 MG/DL (7-18); CALCIUM 8.2 MG/DL (8.5-10.1); CHLORIDE 112 MEQ/L (98-107); GLOMERULAR FILTRATION RATE 33 ML/MIN (>89); GLUCOSE,RANDOM 94 MG/DL (74-106); SODIUM (NA) 143 MEQ/L (136-145)
[2017-06-25 09:04] LABS: ALKALINE PHOSPHATASE 74 U/L (45-117); TOTAL BILIRUBIN ADULT 0.2 MG/DL (0.2-1.0); TOTAL PROTEIN 7.8 GM/DL (6.4-8.2)
[2017-06-25] MEDS: DOCUSATE SODIUM 50 MG/SENNA 8.6 MG TAB PO SCH ×2 (10:12→22:34)
[2017-06-25] MEDS: PREGABALIN 100 MG CAP PO SCH ×2 (10:12→22:34)
[2017-06-25] MEDS: PANTOPRAZOLE SOD 20 MG DELAYED RELEASE TAB PO SCH (10:12)
[2017-06-25] MEDS: FERROUS SULFATE 325 MG (65 MG ELEMENTAL IRON) TAB PO SCH ×2 (10:12→15:42)
[2017-06-25] MEDS: HYDROXYCHLOROQUINE SULFATE 200 MG TAB PO SCH (10:13)
[2017-06-25] MEDS ORDERED: SINE25TA PO (10:24)
[2017-06-25] MEDS: CARBIDOPA/LEVODOPA 25 MG/100 MG TAB PO SCH ×2 (15:42→23:01)
[2017-06-25] MEDS ORDERED: CARBIDOPA/LEVODOPA 25 MG/100 MG TAB PO SCH (18:00)
[2017-06-25] MEDS: cefTRIAXone INJ 1,000 MG in SODIUM CHLORIDE 0.9% INJ 100 ML IV SCH (22:37)
[2017-06-26] VITALS (19 sets, daily range): BP systolic 95–131; BP diastolic 48–75; PULSE 57–70; RESP 16–18; TEMP 97.3–98.7; O2SAT 97–100
[2017-06-26] MEDS: CARBIDOPA/LEVODOPA 25 MG/100 MG TAB PO SCH ×4 (05:45→23:30)
[2017-06-26] MEDS: LEVOTHYROXINE SODIUM 150 MCG TAB PO SCH (05:45)
[2017-06-26] MEDS: SODIUM CHLOR 0.9% 1000 ML INJ 1,000 ML IV SCH ×2 (07:00→11:00)
[2017-06-26 07:27] LABS: BASOPHIL % 0.7 % (0.0-2.0); EOSINOPHIL # 0.2 TH/MM3 (0-0.4); EOSINOPHIL % 4.6 % (0.0-4.0); HEMATOCRIT 27.7 % (35.0-46.0); HEMOGLOBIN 9.4 GM/DL (11.6-15.3); LYMPH % 15.4 % (9.0-44.0); LYMPHOCYTE # 0.7 TH/MM3 (1.0-4.8); MEAN CELL VOLUME 88.4 FL (80.0-100.0); MEAN CORPUSCULAR HEMOGLOBIN 30.2 PG (27.0-34.0); MEAN CORPUSCULAR HGB CONC 34.2 % (32.0-36.0); MEAN PLATELET VOLUME 7.8 FL (7.0-11.0); MONO % 8.7 % (0.0-8.0); MONOCYTE # 0.4 TH/MM3 (0-0.9); NEUT % 70.6 % (16.0-70.0); PLATELET COUNT 170 TH/MM3 (150-450); RED BLOOD COUNT 3.13 MIL/MM3 (4.00-5.30); RED CELL DISTRIBUTION WIDTH 17.7 % (11.6-17.2); WHITE BLOOD COUNT 4.3 TH/MM3 (4.0-11.0)
[2017-06-26 07:47] LABS: ALBUMIN 2.4 GM/DL (3.4-5.0); AST (GOT) 24 U/L (15-37); BICARBONATE 23.6 MEQ/L (21.0-32.0); BLOOD UREA NITROGEN 34 MG/DL (7-18); CALCIUM 7.6 MG/DL (8.5-10.1); CHLORIDE 112 MEQ/L (98-107); CREATININE 1.19 MG/DL (0.50-1.00); GLOMERULAR FILTRATION RATE 44 ML/MIN (>89); GLUCOSE,RANDOM 91 MG/DL (74-106); SODIUM (NA) 142 MEQ/L (136-145)
[2017-06-26 07:49] LABS: ALKALINE PHOSPHATASE 64 U/L (45-117); ALT (GPT) 6 U/L (10-53); TOTAL BILIRUBIN ADULT 0.6 MG/DL (0.2-1.0); TOTAL PROTEIN 7.2 GM/DL (6.4-8.2)
[2017-06-26] MEDS: CHOLESTYRAMINE 4 GM PACKET PO SCH ×3 (08:00→10:04)
[2017-06-26] MEDS: SODIUM CHLORIDE 0.9% FLUSH 10 ML FLUSH IV FLUSH SCH ×2 (09:00→21:49)
[2017-06-26] MEDS: DOCUSATE SODIUM 50 MG/SENNA 8.6 MG TAB PO SCH ×2 (09:00→21:49)
[2017-06-26] MEDS: FERROUS SULFATE 325 MG (65 MG ELEMENTAL IRON) TAB PO SCH ×2 (09:58→17:18)
[2017-06-26] MEDS: PREGABALIN 100 MG CAP PO SCH ×2 (09:58→21:49)
[2017-06-26] MEDS: HYDROXYCHLOROQUINE SULFATE 200 MG TAB PO SCH (09:58)
[2017-06-26] MEDS: PANTOPRAZOLE SOD 20 MG DELAYED RELEASE TAB PO SCH (09:59)
[2017-06-26] MEDS: ACETAMINOPHEN 325 MG TAB PO PRN ×2 (09:59→17:18)
[2017-06-26] MEDS: ACETAMINOPHEN/HYDROcodone 325 MG/5 MG TAB PO PRN (11:34)
--- NOTE | 2017-06-26 17:15 | RADRPT ---
EXAM DATE/TIME: 06/26/2017 16:16 [facility] COMPARISON: CT ABDOMEN & PELVIS W/O CONTRAST, June 24, 2017, 23:53. INDICATIONS : Bleeding. MEDICAL HISTORY : Parkinson's. Hypercholesterolemia. Gastroesophageal reflux disease. Thyroid disease. Dementia. Mitral valve prolapse. Coronary artery disease. Hyperlipidemia. Ulcer. Colorectal cancer. Fibromyalgia. Art hritis. Osteoporosis. SURGICAL HISTORY : Tonsillectomy. section. Cholecystectomy. Bilateral cataract surgery. Colon resection. Right knee replacement. Back surgery. ENCOUNTER: Initial ACUITY: 1 month PAIN SCORE: 0/10 LOCATION: Bilateral pelvis MEASUREMENTS: TRANSABDOMINAL: UTERUS: 4.6 x 2.9 x 2.2 cm ENDOMETRIAL STRIPE: Non visualized RIGHT OVARY: cm Non visualized Masses: LEFT OVARY: cm Non visualized TV PROBE UTILIZED: Probe #1 - SN [id number] FINDINGS: UTERUS: Grossly within normal limits. RIGHT OVARY: Not visualized. LEFT OVARY: Not visualized. MISCELLANEOUS: No free fluid. CONCLUSION: Uterus grossly within normal limits. Ovaries not visualized. Russell Rowland MD on June 26, 2017 at 17:11 Board Certified Radiologist. This report was verified electronically.
--- NOTE | 2017-06-26 17:20 | HHI.PR ---
Subjective Remarks Pt was admitted yesterday after being sent by her [facility] physician for evaluation of ongoing vaginal bleeding. She was found in the ER to additionally have UTI with hematuria. She has no complaints of low back pain or nausea. Objective Vitals Vital Signs Date Time Temp Pulse Resp B/P (MAP) Pulse Ox O2 Delivery O2 Flow Rate FiO2 06/26/17 16:31 61 06/26/17 16:07 98.0 62 17 112/59 (76) 98 06/26/17 16:02 61 06/26/17 14:44 57 06/26/17 14:00 57 06/26/17 13:45 58 06/26/17 12:37 66 06/26/17 12:14 98.7 66 16 121/57 (78) 97 06/26/17 11:54 67 06/26/17 09:53 70 06/26/17 08:00 97.8 68 17 131/63 (85) 99 06/26/17 07:46 65 06/26/17 04:30 98.0 61 18 95/51 100 06/26/17 03:48 61 06/26/17 01:29 98.4 63 18 98/48 100 06/26/17 01:07 98.0 66 18 96/51 100 06/25/17 23:46 66 06/25/17 23:45 98.0 67 17 97/52 (67) 98 06/25/17 21:00 97.1 69 18 101/48 (65) 97 06/25/17 19:45 81 06/25/17 18:25 98.7 61 17 100/69 100 06/25/17 18:05 66 06/25/17 17:13 79 I/O 06/25/17 06/25/17 06/25/17 06/26/17 06/26/17 06/26/17 07:00 15:00 23:00 07:00 15:00 23:00 Intake Total 120 ml 1069 ml 980 ml 2107 ml 709 ml Balance 120 ml 1069 ml 980 ml 2107 ml 709 ml Intake Oral 120 ml 580 ml 240 ml IV Total 1069 ml 1067 ml 709 ml Packed Cells 400 ml 400 ml Blood Product IV Normal Saline Flush 400 ml # Voids 5 3 # Bowel Movements 1 2 Result Diagram: 06/26/1762406/26/17624 Objective Remarks GENERAL: weak appearing SKIN: Warm and dry. HEAD: Normocephalic. EYES: No scleral icterus. No injection or drainage. NECK: Supple, trachea midline. No JVD or lymphadenopathy. CARDIOVASCULAR: Regular rate and rhythm without murmurs, gallops, or rubs. RESPIRATORY: Breath sounds equal bilaterally. No accessory muscle use. GASTROINTESTINAL: Abdomen soft, non-tender, nondistended. BACK: Nontender without obvious deformity. No CVA tenderness. A/P Problem List: (1) UTI (urinary tract infection) ICD Code: N39.0 - Urinary tract infection, site not specified Status: Acute (2) Hemorrhagic cystitis ICD Code: N30.91 - Cystitis, unspecified with hematuria Status: Acute (3) SHILO (acute kidney injury) ICD Code: N17.9 - Acute kidney failure, unspecified Status: Resolved (4) Hypotension ICD Code: I95.9 - Hypotension, unspecified (5) Anemia ICD Code: D64.9 - Anemia, unspecified (6) DNR (do not resuscitate) ICD Code: Z66 - Do not resuscitate Assessment and Plan Vaginal Bleeding SNF physician sent her to the ER specifically for this concern They called the hospital for follow up She was unable to tolerate today's transvaginal ultrasound Heat Treat Supervisor is consulted to assist with work up Anemia Hgb dropped to 7.6 yesterday and patient was transfused 2 units of PRBC So far Hgb is improved and vital signs are stable Will follow H&H UTI w/ Hematuria Cultures pending Rocephin daily Hematuria may have to do with Xarelto use, xarelto held h/o Parkinson's Continue home Sinemet DNR code status Clarified on admission DVT Prophylaxis SCD hose Anticoagulants held due to vaginal bleeding and hematuria Problem Qualifiers (1) UTI (urinary tract infection): Qualified Codes: N39.0 - Urinary tract infection, site not specified; R31.9 - Hematuria, unspecified Dhiraj Marks MD Jun 26, 2017 17:20
[2017-06-26] MEDS: ONDANSETRON HCL 4 MG/2 ML VIAL IVP PRN (18:10)
--- NOTE | 2017-06-26 19:56 | PD.CONS ---
History & Physical H&P PRESSURE STEAMER TENDER consult 82-year-old white female from the rehabilitation her [facility] from vaginal bleeding or bleeding noted in her diaper. Patient's multiple medical problems is a DO NOT RESUSCITATE That the nurse changing her diaper they noticed some blood there and they felt was from her urine that she does have hematuria and the is incontinent of urine Exam ON diaper was removed it's soaked with urine and there is it's lightly blood-tinged. There is a small amount of blood and on the labia and then a speculum was used to visualize in the vagina there is dark red blood in the deep portion posterior fornix and near the cervix By palpation the cervix is normal there is no tumor abnormal growth or mass in the pelvis CT shows no pelvic pathology ultrasound also negative for any endometrial thickness couldn't really identify an endometrial stripe the ovaries could not be seen Impression--post menopausal bleeding likely related to endometrial atrophy, and the stress of multiple disease process is ongoing Plan is observe at this time if bleeding becomes heavier than consider repeat PRESSURE STEAMER TENDER evaluation the patient that is a DO NOT RESUSCITATE and has many other medical problems more pressing it may be well to just ignore whats going on in the pelvis at this time unless it gets significantly worse Frederick Ortega II, MD Jun 26, 2017 19:56
[2017-06-26] MEDS: cefTRIAXone INJ 1,000 MG in SODIUM CHLORIDE 0.9% INJ 100 ML IV SCH (22:24)
[2017-06-27] VITALS (8 sets, daily range): BP systolic 96–129; BP diastolic 53–66; PULSE 61–77; RESP 18–19; TEMP 97–99.2; O2SAT 91–98
[2017-06-27] MEDS: SODIUM CHLOR 0.9% 1000 ML INJ 1,000 ML IV SCH ×3 (03:00→23:35)
[2017-06-27] MEDS: ACETAMINOPHEN/HYDROcodone 325 MG/5 MG TAB PO PRN ×4 (04:20→21:13)
[2017-06-27] MEDS: CARBIDOPA/LEVODOPA 25 MG/100 MG TAB PO SCH ×4 (06:01→23:35)
[2017-06-27] MEDS: LEVOTHYROXINE SODIUM 150 MCG TAB PO SCH (06:01)
[2017-06-27] MEDS: CHOLESTYRAMINE 4 GM PACKET PO SCH ×3 (08:00→17:00)
[2017-06-27] MEDS: DOCUSATE SODIUM 50 MG/SENNA 8.6 MG TAB PO SCH ×2 (08:21→21:13)
[2017-06-27] MEDS: FERROUS SULFATE 325 MG (65 MG ELEMENTAL IRON) TAB PO SCH ×2 (08:21→16:56)
[2017-06-27] MEDS: PREGABALIN 100 MG CAP PO SCH ×2 (08:21→21:14)
[2017-06-27] MEDS: PANTOPRAZOLE SOD 20 MG DELAYED RELEASE TAB PO SCH (08:21)
[2017-06-27] MEDS: HYDROXYCHLOROQUINE SULFATE 200 MG TAB PO SCH (08:21)
[2017-06-27] MEDS: SODIUM CHLORIDE 0.9% FLUSH 10 ML FLUSH IV FLUSH SCH ×2 (09:00→21:13)
--- NOTE | 2017-06-27 18:47 | HHI.PR ---
Subjective Remarks Spoke with daughter who explained that her mom, even if cancer was found, is to weak to undergo any treatments. Mrs. Church is doing well, tolerating Rocephin and otherwise at her baseline according to daughter. Objective Vitals Vital Signs Date Time Temp Pulse Resp B/P (MAP) Pulse Ox O2 Delivery O2 Flow Rate FiO2 06/27/17 16:00 98.9 66 18 129/61 (83) 91 06/27/17 12:00 98.4 62 18 108/54 (72) 96 06/27/17 07:55 97.4 61 18 110/53 (72) 98 06/27/17 04:20 98.0 77 19 129/66 (87) 97 06/27/17 04:08 74 06/27/17 00:00 97.0 65 19 121/59 (79) 95 06/26/17 20:00 97.3 66 18 118/75 (89) 97 06/26/17 19:43 67 I/O 06/26/17 06/26/17 06/26/17 06/27/17 06/27/17 06/27/17 07:00 15:00 23:00 07:00 15:00 23:00 Intake Total 2107 ml 709 ml 640 ml 3231 ml 480 ml Balance 2107 ml 709 ml 640 ml 3231 ml 480 ml Intake Oral 240 ml 640 ml 240 ml 480 ml IV Total 1067 ml 709 ml 2991 ml Packed Cells 400 ml Blood Product IV Normal Saline Flush 400 ml # Voids 3 6 5 2 # Bowel Movements 2 2 0 0 Result Diagram: 06/26/1725 06/26/17624 Objective Remarks GENERAL: weak appearing SKIN: Warm and dry. HEAD: Normocephalic. EYES: No scleral icterus. No injection or drainage. NECK: Supple, trachea midline. No JVD or lymphadenopathy. CARDIOVASCULAR: Regular rate and rhythm without murmurs, gallops, or rubs. RESPIRATORY: Breath sounds equal bilaterally. No accessory muscle use. GASTROINTESTINAL: Abdomen soft, non-tender, nondistended. BACK: Nontender without obvious deformity. No CVA tenderness. A/P Problem List: (1) UTI (urinary tract infection) ICD Code: N39.0 - Urinary tract infection, site not specified Status: Acute (2) Hemorrhagic cystitis ICD Code: N30.91 - Cystitis, unspecified with hematuria Status: Acute (3) SHILO (acute kidney injury) ICD Code: N17.9 - Acute kidney failure, unspecified Status: Resolved (4) Hypotension ICD Code: I95.9 - Hypotension, unspecified (5) Anemia ICD Code: D64.9 - Anemia, unspecified (6) DNR (do not resuscitate) ICD Code: Z66 - Do not resuscitate Assessment and Plan Vaginal Bleeding Appreciate Welding Technician consult No evidence of uterine CA at this time on CT, limited US and bimanual exam Further work up indicated if worsening occurs Anemia Received 2 units PRBC on arrival So far Hgb is improved and vital signs are stable UTI w/ Hematuria Enterococcus, Sensitivities pending Rocephin daily Xarelto held due to hematuria h/o Parkinson's Continue home Sinemet DNR code status Clarified on admission DVT Prophylaxis SCD hose Anticoagulants held due to vaginal bleeding and hematuria Problem Qualifiers (1) UTI (urinary tract infection): Qualified Codes: N39.0 - Urinary tract infection, site not specified; R31.9 - Hematuria, unspecified Dhiraj Marks MD Jun 27, 2017 18:47
[2017-06-27 22:19] LABS: AUTOMATED NEUTROPHIL # 4.1 TH/MM3 (1.8-7.7); BASOPHIL % 0.5 % (0.0-2.0); EOSINOPHIL # 0.2 TH/MM3 (0-0.4); EOSINOPHIL % 3.2 % (0.0-4.0); HEMATOCRIT 30.3 % (35.0-46.0); HEMOGLOBIN 10.2 GM/DL (11.6-15.3); LYMPH % 16.1 % (9.0-44.0); LYMPHOCYTE # 0.9 TH/MM3 (1.0-4.8); MEAN CELL VOLUME 89.4 FL (80.0-100.0); MEAN CORPUSCULAR HGB CONC 33.5 % (32.0-36.0); MEAN PLATELET VOLUME 7.4 FL (7.0-11.0); MONO % 7.4 % (0.0-8.0); MONOCYTE # 0.4 TH/MM3 (0-0.9); NEUT % 72.8 % (16.0-70.0); PLATELET COUNT 189 TH/MM3 (150-450); RED BLOOD COUNT 3.39 MIL/MM3 (4.00-5.30); RED CELL DISTRIBUTION WIDTH 16.9 % (11.6-17.2); WHITE BLOOD COUNT 5.6 TH/MM3 (4.0-11.0)
[2017-06-27] MEDS: cefTRIAXone INJ 1,000 MG in SODIUM CHLORIDE 0.9% INJ 100 ML IV SCH (23:36)
[2017-06-27] MEDS: ONDANSETRON HCL 4 MG/2 ML VIAL IVP PRN (23:36)
[2017-06-28] VITALS (9 sets, daily range): BP systolic 90–116; BP diastolic 50–60; PULSE 51–66; RESP 16–18; TEMP 96.9–98.8; O2SAT 90–100
[2017-06-28] MEDS: MORPHINE SULFATE 2 MG/ML INJ IV PUSH PRN ×2 (03:20→21:49)
[2017-06-28] MEDS: LEVOTHYROXINE SODIUM 150 MCG TAB PO SCH (05:41)
[2017-06-28] MEDS: ACETAMINOPHEN/HYDROcodone 325 MG/5 MG TAB PO PRN (05:41)
[2017-06-28] MEDS: CARBIDOPA/LEVODOPA 25 MG/100 MG TAB PO SCH ×3 (05:41→23:13)
[2017-06-28] MEDS: SODIUM CHLORIDE 0.9% FLUSH 10 ML FLUSH IV FLUSH SCH ×2 (09:00→21:00)
[2017-06-28] MEDS: SODIUM CHLOR 0.9% 1000 ML INJ 1,000 ML IV SCH ×2 (09:00→19:00)
[2017-06-28] MEDS ORDERED: MUPI2%T TOPICAL (09:01)
--- NOTE | 2017-06-28 09:06 | HHI.DS ---
Discharge Summary Admission Date Jun 25, 2017 at 00:56 Discharge Date: Jun 28, 2017 Admitting Diagnosis UTI, HEMATURIA (1) UTI (urinary tract infection) ICD Code: N39.0 - Urinary tract infection, site not specified Status: Acute (2) Hemorrhagic cystitis ICD Code: N30.91 - Cystitis, unspecified with hematuria Status: Acute (3) SHILO (acute kidney injury) ICD Code: N17.9 - Acute kidney failure, unspecified Status: Resolved (4) Hypotension ICD Code: I95.9 - Hypotension, unspecified (5) Anemia ICD Code: D64.9 - Anemia, unspecified (6) DNR (do not resuscitate) ICD Code: Z66 - Do not resuscitate Procedures None Brief History - From Admission This is an 82-year-old DNR female with a PMH of Anxiety, Depression, Fibromyalgia, Parkinson's and A-fib on Xarelto who was sent to the ER from SNF for eval of vaginal bleeding. Pt is poor historian, but is able to tell me she' s had dysuria x1 day, associated w/ frequency. No fever, chills, nausea or vomiting. Per SNF report, pt noted to have significant amount of blood in diaper. On arrival, BP 102/55, HR 80, O2 sat 97% on RA, Afebrile. While in ER , had episode of hypotension w/ BP 80's systolic, s/p IVF w/ some improvement. Hemoglobin 8.5, previously 9.0 on 04/14/17. Creatinine 1.79, previously 1.12 on 03/28/17. INR 1.2. UA positive for UTI and hematuria. CT Abd/Pelvis w/ no acute abnormality seen. S/p IV Abx in ER CBC/BMP: 06/27/17 7977 06/26/17 0697 Significant Findings Laboratory Tests Test 06/26/17 06:25 06/27/17 21:47 Red Blood Count 3.13 MIL/MM3 (4.00-5.30) 3.39 MIL/MM3 (4.00-5.30) Hemoglobin 9.4 GM/DL (11.6-15.3) 10.2 GM/DL (11.6-15.3) Hematocrit 27.7 % (35.0-46.0) 30.3 % (35.0-46.0) Red Cell Distribution Width 17.7 % (11.6-17.2) Neutrophils (%) (Auto) 70.6 % (16.0-70.0) 72.8 % (16.0-70.0) Monocytes (%) (Auto) 8.7 % (0.0-8.0) Eosinophils (%) (Auto) 4.6 % (0.0-4.0) Lymphocytes # (Auto) 0.7 TH/MM3 (1.0-4.8) 0.9 TH/MM3 (1.0-4.8) Blood Urea Nitrogen 34 MG/DL (7-18) Creatinine 1.19 MG/DL (0.50-1.00) Albumin 2.4 GM/DL (3.4-5.0) Calcium Level 7.6 MG/DL (8.5-10.1) Alanine Aminotransferase (ALT/SGPT) 6 U/L (10-53) Chloride Level 112 MEQ/L (98-107) Estimat Glomerular Filtration Rate 44 ML/MIN (>89) PE at Discharge GENERAL: weak appearing SKIN: Warm and dry. HEAD: Normocephalic. EYES: No scleral icterus. No injection or drainage. NECK: Supple, trachea midline. No JVD or lymphadenopathy. CARDIOVASCULAR: Regular rate and rhythm without murmurs, gallops, or rubs. RESPIRATORY: Breath sounds equal bilaterally. No accessory muscle use. GASTROINTESTINAL: Abdomen soft, non-tender, nondistended. BACK: Nontender without obvious deformity. No CVA tenderness. Hospital Course 82F sent to the ER by her SNF physician for concern about vaginal bleeding. In the ER she had anemia, and was subsequently given 2 units PRBC's. She also had a UTI, for which she received 3 doses of IV Rocephin. Work up for her vaginal bleeding included transvaginal ultrasound, CT abdomen, and gynecology bimanual exam. After a discussion with her daughter it was determined that if cancer was found treatment would be waived, so the work up which is so far negative was determined to be sufficient. Gynecology recommends further work up ( optional) if bleeding returns or worsens. She has a stage 2 sacral bed sore that will need ongonig care at her SNF. I've recommended bactroban applied daily for a month with daily barrier dressing changes, and proper bed and position precautions to prevent worsening. She is stable for discharge back to her SNF. Urinalysis follow up ordered for 1 week from today. Pt Condition on Discharge: Fair Discharge Disposition: Discharge to SNF Discharge Time: <= 30 minutes Discharge Instructions DIET: Follow Instructions for: As Tolerated, No Restrictions Activities you can perform: Weight Bearing as Dhiraj Cardenas MD Jun 28, 2017 09:06
[2017-06-28] MEDS: PANTOPRAZOLE SOD 20 MG DELAYED RELEASE TAB PO SCH (09:55)
[2017-06-28] MEDS: HYDROXYCHLOROQUINE SULFATE 200 MG TAB PO SCH (09:55)
[2017-06-28] MEDS: PREGABALIN 100 MG CAP PO SCH ×2 (09:55→21:48)
[2017-06-28] MEDS: DOCUSATE SODIUM 50 MG/SENNA 8.6 MG TAB PO SCH ×2 (09:55→21:49)
[2017-06-28] MEDS: FERROUS SULFATE 325 MG (65 MG ELEMENTAL IRON) TAB PO SCH ×2 (09:55→17:53)
[2017-06-28] MEDS: CHOLESTYRAMINE 4 GM PACKET PO SCH ×2 (09:56→17:00)
--- NOTE | 2017-06-28 10:56 | PD.WOU.CON ---
Patient Intake Chief Complaint Sacral Ulcer Consult Requested by Dr. Dhiraj Marks Reason for Consult Sacral Ulcer Primary Care Physician Unknown History of Present Illness Wound care consult from Dr. Marks to evaluate sacral ulcer. Patient is a resident from a SNF and presented to the ED on 06/25/17 with complaints of Hematuria and UTI. Patient is a poor historian and therefore much of the history was gleaned from review of hospital notes. Patient denied any pain or discomfort at this time. Coded Allergies: *MDRO Multi-Drug Resistant Organism (Verified Allergy, Unknown, 03/23/17) Vital Signs Date Time Temp Pulse Resp B/P (MAP) Pulse Ox O2 Delivery O2 Flow Rate FiO2 06/28/17 08:00 96.9 61 18 90/50 (63) 93 06/28/17 04:00 97.4 60 18 101/52 (68) 100 06/27/17 23:58 97.8 67 18 96/56 (69) 96 06/27/17 20:15 99.2 68 18 111/61 (78) 93 06/27/17 16:00 98.9 66 18 129/61 (83) 91 06/27/17 12:00 98.4 62 18 108/54 (72) 96 Past, Family & Social History Past Medical History Endocrine: REPORTS HX OF: Hypothyroidism Cardiovascular: REPORTS HX OF: Coronary artery disease, Hyperlipidemia, Other CV history (mitrtal valve prolapse) Gastrointestinal: REPORTS HX OF: GERD Genitourinary: REPORTS HX OF: Past UTI, Other history Musculoskeletal: REPORTS HX OF: Fibromyalgia, Osteoarthritis, Osteoporosis Cancer/Hematology: REPORTS HX OF: Anemia, Colorectal cancer Neurologic: REPORTS HX OF: Parkinson disease, Other neurologic history ( neuralgia) Past Surgical History HEENT: REPORTS HX OF: Tonsillectomy Gastrointestinal: REPORTS HX OF: Cholecystectomy (09/26/15) Gynecologic: REPORTS HX OF: delivery, DENIES HX OF: Hysterectomy Musculoskeletal: REPORTS HX OF: Joint replacement (knee replacement, left) Neurologic: REPORTS HX OF: Spinal surgery (lumbar fusion 2007) Breast: DENIES HX OF: Mastectomy, bilateral, Mastectomy, left, Mastectomy, right Family Medical History Patient reports no known family medical history. Review of Systems Genitourinary: COMPLAINS OF: Blood in urine Integumentary: COMPLAINS OF: Slow to heal after cuts Wound Assessment Arrived: Stretcher (hospital bed bound) Wound Information - Wound One 06/28/17: There is no obvious ulceration in the sacral area nor is there Lab and Radiology Results Radiology Last Impressions Pelvis Ultrasound 06/26/17 0000 Signed Impressions: Service Date/Time: Monday, June 26, 2017 16:16 - CONCLUSION: Uterus grossly within normal limits. Ovaries not visualized. Russell Rowland MD Abdomen/Pelvis CT 06/24/17 0000 Signed Impressions: Service Date/Time: Saturday, June 24, 2017 23:53 - CONCLUSION: 1. Acute abnormality is not seen. 2. Colonic diverticula. 3. 4 mm nodule in the posterior medial left lower lobe. This could be followed with a CT examination in 6 months. 4. Chronic change in the lumbar spine and left femur. There is postoperative change in these regions. MD Channing Bhat Karla A. MD Jun 28, 2017 10:56
--- NOTE | 2017-06-28 13:24 | PD.ID.CON ---
History of Present Illness Service ID Consult Requested By Reason for Consult Evaluation and management of possible vancomycin-resistant enterococcus in the urine. Primary Care Physician Unknown Diagnoses: History of Present Illness Ms. Church is an 82-year-old female with a past medical history of anxiety, depression, fibromyalgia, Parkinson's disease as well as atrial fibrillation on Xarelto. Off note patient's CODE STATUS is DO NOT RESUSCITATE. Patient is a resident of group home and was sent to the ER for evaluation of vaginal bleeding. Patient is a poor historian and most of the history was obtained by review of medical records. Per discussion with nurse patient is confused off and on. Is oriented 1. There was a reported history of dysuria associated frequency prior to admission. No fever chills nausea or vomiting. On arrival the blood pressure is 102/55, heart rate 80, O2 sats 97% on room air , afebrile. While in the emergency room patient had episode of hypotension with blood pressure in the 80s systolic which improved after IV fluid resuscitation. Hemoglobin on arrival was 8.5. Creatinine 1.79. UA was positive as well as hematuria. CT abdomen pelvis with no acute abnormalities seen in particular no endometrial thickness noted. [facility] notes were reviewed it appears that this may likely be due to atrophic changes in her endometrium per review of their notes. Patient was started on empiric IV ceftriaxone which reportedly was started at the long-term facility prior to admission. Infectious disease is consulted for evaluation and management of possible vancomycin-resistant enterococcus in the urine. Of note patient is on MAOI inhibitors is not a good candidate for Zyvox. At the present time patient is not in overt sepsis appears to be hemodynamically stable and clinically responding to ceftriaxone IV. I have repeated a UA with straight catheter. If this does not reflex to culture than this likely was not an infectious process related to urinary tract infection. Review of Systems ROS Limitations: Clinical Condition, Poor Historian Past Family Social History Allergies: Coded Allergies: *MDRO Multi-Drug Resistant Organism (Verified Allergy, Unknown, 03/23/17) Past Medical History Anxiety, Depression, Fibromyalgia, Parkinson's A-fib on Xarelto Past Surgical History Cholecystectomy, AV Shunt, , Cataract Surgery, Right Knee Replacement, Lumbar Rods, Tonsillectomy Reported Medications Reported Meds & Active Scripts Active Bactroban Topical (Mupirocin) 22 Gm Cream 1 Applic TOPICAL BID 30 Days Apply to stage 2 sacral ulcer with barrier dressing changes Gnp Melatonin Maximum Str (Melatonin) 5 Mg Tab 5 Mg PO HS PRN Senna Plus 8.6-50 mg (Sennosides-Docusate Sodium) 8.6 Mg-50 Mg Tab 1 Tab PO BID Lyrica (Pregabalin) 100 Mg Cap 100 Mg PO BID Hydrocodone-Acetaminophen 10-325 mg Tab 1 Tab PO Q4H PRN Calcium 600+D 200 (Calcium Carbonate-Vitamin D) 600-200 Mg-Unit Tab 1 Tab PO BID Ergocalciferol 50,000 Unit Cap 50,000 Units PO Q7D Xarelto (Rivaroxaban) 10 Mg Tab 10 Mg PO DAILY Artificial Tears Opth Drops (Propylene Glycol-Glycerin Opth Drops) 1-0.3% Drops 1-2 Drop EACH EYE TID PRN Vitamin D3 (Cholecalciferol) 1,000 Unit Tab 1,000 Units PO DAILY Levothyroxine (Levothyroxine Sodium) 150 Mcg Tab 150 Mcg PO DAILY Omeprazole 20 Mg Tab 20 Mg PO DAILY Plaquenil (Hydroxychloroquine Sulfate) 200 Mg Tab 200 Mg PO DAILY Take with food Multiple Vitamin 1 Tab 1 Tab PO DAILY Walker/Adult/Folding (Device) 1 Mis Mis Ea .ROUTE DIRECTED Reported Sinemet (Carbidopa-Levodopa) 25-100 Mg Tab 1 Tab PO Q6HR Milk of Magnesia Liq (Magnesium Hydroxide) 400 Mg/5 Ml Susp 15 Ml PO DAILY PRN Senna-Plus (Sennosides-Docusate Sodium) 8.6-50 Mg Tab 1 Tab PO BID Questran (Cholestyramine) 4 Gm/Dose Powd 4 Gm PO TID 1 level scoopful of powder contains 4 grams of cholestyramine. Vitamin C (Ascorbic Acid) 250 Mg Chew 500 Mg CHEW BID Ferrous Sulfate 325 Mg (65 Mg Iron) Tablet 325 Mg PO BIDPC Systane Opth Drops (Polyethylene Glycol-Propylene Glycol Opth Drp) 0.4-0.3% Soln 1-2 Drop EACH EYE PRN PRN Duoneb (Ipratropium-Albuterol Neb) 0.5-2.5 Mg/3 Ml Neb 1 Nebule INH DAILY Robitussin Cough Chest Congestion (Dextromethorphan-Guaifenesin) 10-200 Mg Cap 1 Cap PO Q4H PRN Robitussin Cough Chest Congestion (Dextromethorphan-Guaifenesin) 10-200 Mg Cap 1 Cap PO Q4H PRN Ceftriaxone Inj (Ceftriaxone Sodium) 1 Gram Inj 1 Gm IM Q24H Cranberry (Cranberry (Vaccinium Macrocarpon)) 400 Mg Cap 1 Cap PO BID Active Ordered Medications Current Medications Medications (Trade) Dose Ordered Sig/Price Route Start Time Stop Time Status Last Admin Ceftriaxone Sodium 1000 mg/ Sodium Chloride 100 ml @ 200 mls/hr Q24H IV 06/25/17 23:00 06/27/17 23:36 Sodium Chloride 1,000 ml @ 100 mls/hr Q10H IV 06/25/17 01:00 06/27/17 23:35 (NS Flush) 2 ml UNSCH PRN IV FLUSH 06/25/17 01:00 06/25/17 18:24 (NS Flush) 2 ml BID IV FLUSH 06/25/17 09:00 06/28/17 09:00 (Zofran Inj) 4 mg Q6H PRN IVP 06/25/17 01:00 06/27/17 23:36 (Tylenol) 650 mg Q6H PRN PO 06/25/17 01:00 06/26/17 17:18 (Mcintosh 5-325 Mg) 1 tab Q4H PRN PO 06/25/17 01:00 06/28/17 05:41 (Morphine Inj) 2 mg Q3H PRN IV PUSH 06/25/17 01:00 06/28/17 03:20 (Naheed-Colace) 1 tab BID PO 06/25/17 09:00 06/28/17 09:55 (Milk Of Magnesia Liq) 30 ml Q12H PRN PO 06/25/17 01:00 (Senokot) 17.2 mg Q12H PRN PO 06/25/17 01:00 (Dulcolax Supp) 10 mg DAILY PRN RECTAL 06/25/17 01:00 (Lactulose Liq) 30 ml DAILY PRN PO 06/25/17 01:00 (Questran 4 Gm Pkt) 4 gm TIDAC PO 06/25/17 08:00 06/28/17 09:56 (Ferrous Sulfate) 325 mg BIDPC PO 06/25/17 09:00 06/28/17 09:55 (Plaquenil) 200 mg DAILY PO 06/25/17 09:00 06/28/17 09:55 (Lyrica) 100 mg BID PO 06/25/17 09:00 06/28/17 09:55 (Protonix) 20 mg DAILY PO 06/25/17 09:00 06/28/17 09:55 (Synthroid) 150 mcg DAILY@0600 PO 06/26/17 06:00 06/28/17 05:41 (Sinemet 25-100 Mg) 1 tab Q6HR PO 06/26/17 00:00 06/28/17 05:41 Family History Noncontributory to age. Social History Resident of group home. Has a daughter who is the POA. No reported alcohol or smoking. Physical Exam Vital Signs Vital Signs Date Time Temp Pulse Resp B/P (MAP) Pulse Ox O2 Delivery O2 Flow Rate FiO2 06/28/17 11:44 98.3 61 18 105/57 (73) 93 06/28/17 08:00 96.9 61 18 90/50 (63) 93 06/28/17 04:00 97.4 60 18 101/52 (68) 100 06/27/17 23:58 97.8 67 18 96/56 (69) 96 06/27/17 20:15 99.2 68 18 111/61 (78) 93 06/27/17 16:00 98.9 66 18 129/61 (83) 91 Physical Exam GENERAL: Thin built fairly well-developed patient, in no apparent distress. SKIN: No rashes, ecchymoses or lesions. Cool and dry. HEAD: Atraumatic. Normocephalic. No temporal or scalp tenderness. EYES: Pupils equal round and reactive. Extraocular motions intact. No scleral icterus. No injection or drainage. ENT: Nose without bleeding, purulent drainage or septal hematoma. Throat without erythema, tonsillar hypertrophy or exudate. Uvula midline. Airway patent. NECK: Trachea midline. Supple, nontender, no meningeal signs. CARDIOVASCULAR: Heart sounds audible. RESPIRATORY: Clear to auscultation. Breath sounds equal bilaterally GASTROINTESTINAL: Abdomen soft, non-tender, nondistended. MUSCULOSKELETAL: Extremities without clubbing, cyanosis, or edema. NEUROLOGICAL: Awake and alert. Speech normal Psych cooperative IV line sites with no evidence of infection. Laboratory Laboratory Tests Test 1/29/18 21:47 White Blood Count 5.6 Red Blood Count 3.39 Hemoglobin 10.2 Hematocrit 30.3 Mean Corpuscular Volume 89.4 Mean Corpuscular Hemoglobin 30.0 Mean Corpuscular Hemoglobin Concent 33.5 Red Cell Distribution Width 16.9 Platelet Count 189 Mean Platelet Volume 7.4 Neutrophils (%) (Auto) 72.8 Lymphocytes (%) (Auto) 16.1 Monocytes (%) (Auto) 7.4 Eosinophils (%) (Auto) 3.2 Basophils (%) (Auto) 0.5 Neutrophils # (Auto) 4.1 Lymphocytes # (Auto) 0.9 Monocytes # (Auto) 0.4 Eosinophils # (Auto) 0.2 Basophils # (Auto) 0.0 CBC Comment DIFF FINAL Differential Comment Date/Time Source Procedure Growth Status 06/24/17 22:10 Urine Clean Catch Urine Culture - Preliminary Group D Enterococcus Resulted Result Diagram: 06/27/17 2147 06/26/17 0625 Imaging Last Impressions Pelvis Ultrasound 06/26/17 0000 Signed Impressions: Service Date/Time: Monday, June 26, 2017 16:16 - CONCLUSION: Uterus grossly within normal limits. Ovaries not visualized. Russell Rowland MD Abdomen/Pelvis CT 06/24/17 0000 Signed Impressions: Service Date/Time: Saturday, June 24, 2017 23:53 - CONCLUSION: 1. Acute abnormality is not seen. 2. Colonic diverticula. 3. 4 mm nodule in the posterior medial left lower lobe. This could be followed with a CT examination in 6 months. 4. Chronic change in the lumbar spine and left femur. There is postoperative change in these regions. Abbe Thomas MD Assessment and Plan Assessment and Plan Enterococcus faecalis in the urine. ? UTI. Susceptibility pending preliminary report of possible VRE Has an external catheter. No reported history of indwelling catheter. Uterine bleeding suspected to be from atrophic endometrial lining. This is per review of [facility] [facility] [facility] notes Anxiety, Depression, Fibromyalgia, Parkinson's A-fib on Xarelto Recommendations: Continue ceftriaxone IV for now Straight catheter obtain UA. If UA does not reflux to culture with stop all antibiotics. High suspicion of this being colonized colonization over a UTI. As patient does not have any fever or chills or elevation in WBC count. Follow cultures Follow clinically Will follow along with you. Pema Ann MD Jun 28, 2017 13:24
[2017-06-28 18:45] LABS: BACTERIA, URINE FEW /hpf; BILIRUBIN, URINE NEG (NEG); BLOOD, URINE LARGE (NEG); GLUCOSE,URINE NEG (NEG); KETONE, URINE NEG (NEG); NITRITE,URINE NEG (NEG); PH, URINE 5.5 (5.0-8.5); SQUAMOUS EPITHELIAL CELL URINE 45 /hpf (0-5); URINE LEUKOCYTE ESTERASE MOD (NEG)
[2017-06-28 18:47] LABS: URINE COLOR DARK-RED (YELLW/STRAW)
[2017-06-28] MEDS: NITROFURANTOIN MONOHYD MACROCR 100 MG CAP PO SCH (21:49)
[2017-06-29 03:56] VITALS: PULSE 58
[2017-06-29 04:00] VITALS: BP 102/68; PULSE 59; RESP 16; TEMP 98.4; O2SAT 100
[2017-06-29] MEDS: CARBIDOPA/LEVODOPA 25 MG/100 MG TAB PO SCH ×3 (05:24→18:00)
[2017-06-29] MEDS: LEVOTHYROXINE SODIUM 150 MCG TAB PO SCH (05:24)
[2017-06-29] MEDS: SODIUM CHLOR 0.9% 1000 ML INJ 1,000 ML IV SCH ×2 (05:25→15:00)
[2017-06-29 08:00] VITALS: BP 111/60; PULSE 63; PULSE 64; RESP 18; TEMP 98.6; O2SAT 100
[2017-06-29] MEDS: DOCUSATE SODIUM 50 MG/SENNA 8.6 MG TAB PO SCH (08:22)
[2017-06-29] MEDS: PANTOPRAZOLE SOD 20 MG DELAYED RELEASE TAB PO SCH (08:22)
[2017-06-29] MEDS: NITROFURANTOIN MONOHYD MACROCR 100 MG CAP PO SCH ×2 (08:23→18:00)
[2017-06-29] MEDS: FERROUS SULFATE 325 MG (65 MG ELEMENTAL IRON) TAB PO SCH ×2 (08:23→18:00)
[2017-06-29] MEDS: CHOLESTYRAMINE 4 GM PACKET PO SCH ×3 (08:23→17:00)
[2017-06-29] MEDS: HYDROXYCHLOROQUINE SULFATE 200 MG TAB PO SCH (08:23)
[2017-06-29] MEDS: PREGABALIN 100 MG CAP PO SCH (08:23)
[2017-06-29] MEDS: SODIUM CHLORIDE 0.9% FLUSH 10 ML FLUSH IV FLUSH SCH (08:23)
[2017-06-29 12:00] VITALS: BP 104/55; PULSE 70; RESP 18; TEMP 99; O2SAT 92
--- NOTE | 2017-06-29 12:50 | HHI.IDPN ---
Subjective Subjective Remarks Ms. Church is an 82-year-old female with a past medical history of anxiety, depression, fibromyalgia, Parkinson's disease as well as atrial fibrillation on Xarelto. Off note patient's CODE STATUS is DO NOT RESUSCITATE. Patient is a resident of [facility] and was sent to the ER for evaluation of vaginal bleeding. Patient is a poor historian and most of the history was obtained by review of medical records. Per discussion with nurse patient is confused off and on. Is oriented 1. There was a reported history of dysuria associated frequency prior to admission. No fever chills nausea or vomiting. On arrival the blood pressure is 102/55, heart rate 80, O2 sats 97% on room air , afebrile. While in the emergency room patient had episode of hypotension with blood pressure in the 80s systolic which improved after IV fluid resuscitation. Hemoglobin on arrival was 8.5. Creatinine 1.79. UA was positive as well as hematuria. CT abdomen pelvis with no acute abnormalities seen in particular no endometrial thickness noted. SPORTS INFORMATION DIRECTOR notes were reviewed it appears that this may likely be due to atrophic changes in her endometrium per review of their notes. Patient was started on empiric IV ceftriaxone which reportedly was started at the [facility] facility prior to admission. Infectious disease is consulted for evaluation and management of possible vancomycin-resistant enterococcus in the urine. Of note patient is on MAOI inhibitors is not a good candidate for Zyvox. At the present time patient is not in overt sepsis appears to be hemodynamically stable and clinically responding to ceftriaxone IV. I have repeated a UA with straight catheter. If this does not reflex to culture than this likely was not an infectious process related to urinary tract infection. Overnight events reviewed. No fevers No rash No diarrhea Antibiotics Nitrofurantoin oral Lines Line sites with no evidence of infection. Past Medical History Anxiety, Depression, Fibromyalgia, Parkinson's A-fib on Xarelto Past Surgical History Cholecystectomy, AV Shunt, , Cataract Surgery, Right Knee Replacement, Lumbar Rods, Tonsillectomy Allergies: Coded Allergies: *MDRO Multi-Drug Resistant Organism (Verified Allergy, Unknown, 03/23/17) Objective . Vital Signs Date Time Temp Pulse Resp B/P (MAP) Pulse Ox O2 Delivery O2 Flow Rate FiO2 06/29/17 08:00 64 06/29/17 04:00 Nasal Cannula 4.00 06/29/17 04:00 98.4 59 16 102/68 (79) 100 06/29/17 03:56 58 06/29/17 00:00 Nasal Cannula 4.00 06/28/17 23:57 51 06/28/17 22:53 17 06/28/17 22:52 17 06/28/17 21:00 Nasal Cannula 4.00 06/28/17 20:03 66 06/28/17 20:00 98.4 66 16 108/59 (75) 92 06/28/17 16:00 98.3 62 18 114/60 (78) 06/28/17 15:46 55 06/28/17 14:02 98.8 56 18 116/57 (76) 90 . Laboratory Tests Test 06/27/17 21:47 White Blood Count 5.6 TH/MM3 Red Blood Count 3.39 MIL/MM3 Hemoglobin 10.2 GM/DL Hematocrit 30.3 % Mean Corpuscular Volume 89.4 FL Mean Corpuscular Hemoglobin 30.0 PG Mean Corpuscular Hemoglobin Concent 33.5 % Red Cell Distribution Width 16.9 % Platelet Count 189 TH/MM3 Mean Platelet Volume 7.4 FL Neutrophils (%) (Auto) 72.8 % Lymphocytes (%) (Auto) 16.1 % Monocytes (%) (Auto) 7.4 % Eosinophils (%) (Auto) 3.2 % Basophils (%) (Auto) 0.5 % Neutrophils # (Auto) 4.1 TH/MM3 Lymphocytes # (Auto) 0.9 TH/MM3 Monocytes # (Auto) 0.4 TH/MM3 Eosinophils # (Auto) 0.2 TH/MM3 Basophils # (Auto) 0.0 TH/MM3 CBC Comment DIFF FINAL Differential Comment Microbiology Date/Time Source Procedure Growth Status 06/28/17 17:45 Urine Catheterized Urine Urine Culture Pending Received Imaging Last Impressions Pelvis Ultrasound 06/26/17 0000 Signed Impressions: Service Date/Time: Monday, June 26, 2017 16:16 - CONCLUSION: Uterus grossly within normal limits. Ovaries not visualized. Russell Rowland MD Abdomen/Pelvis CT 06/24/17 0000 Signed Impressions: Service Date/Time: Saturday, June 24, 2017 23:53 - CONCLUSION: 1. Acute abnormality is not seen. 2. Colonic diverticula. 3. 4 mm nodule in the posterior medial left lower lobe. This could be followed with a CT examination in 6 months. 4. Chronic change in the lumbar spine and left femur. There is postoperative change in these regions. Abbe Thomas MD Physical Exam GENERAL: Thin built fairly well-developed patient, in no apparent distress. SKIN: No rashes, ecchymoses or lesions. Cool and dry. HEAD: Atraumatic. Normocephalic. No temporal or scalp tenderness. EYES: Pupils equal round and reactive. Extraocular motions intact. No scleral icterus. No injection or drainage. ENT: Nose without bleeding, purulent drainage or septal hematoma. Throat without erythema, tonsillar hypertrophy or exudate. Uvula midline. Airway patent. NECK: Trachea midline. Supple, nontender, no meningeal signs. CARDIOVASCULAR: Heart sounds audible. RESPIRATORY: Clear to auscultation. Breath sounds equal bilaterally GASTROINTESTINAL: Abdomen soft, non-tender, nondistended. MUSCULOSKELETAL: Extremities without clubbing, cyanosis, or edema. NEUROLOGICAL: Awake and alert. Speech normal Psych cooperative IV line sites with no evidence of infection. Assessment & Plan Remarks Enterococcus faecalis in the urine. ? UTI. Susceptibility pending preliminary report of possible VRE Has an external catheter. No reported history of indwelling catheter. Uterine bleeding suspected to be from atrophic endometrial lining. This is per review of SPORTS INFORMATION DIRECTOR notes Anxiety, Depression, Fibromyalgia, Parkinson's A-fib on Xarelto Recommendations: DC ceftriaxone IV for now Continue nitrofurantoin oral for total duration of 7 days on discharge. Okay to discharge from infectious disease standpoint. Will sign off please call back if any change in clinical condition or questions. Pema Ann MD Jun 29, 2017 12:50
[2017-06-29] MEDS: ACETAMINOPHEN/HYDROcodone 325 MG/5 MG TAB PO PRN (14:50)
[2017-06-29 16:00] VITALS: BP 112/53; PULSE 70; PULSE 72; RESP 18; TEMP 98.4; O2SAT 100
[2017-06-29] MEDS ORDERED: NITR100C4 PO (16:40)
--- NOTE | 2017-06-29 18:18 | HHI.PR ---
Subjective Remarks patient says she is feeling alright. Objective Vital Signs Date Time Temp Pulse Resp B/P (MAP) Pulse Ox O2 Delivery O2 Flow Rate FiO2 06/29/17 16:00 70 06/29/17 12:00 99.0 70 18 104/55 (71) 92 06/29/17 08:00 98.6 63 18 111/60 (77) 100 06/29/17 08:00 64 06/29/17 04:00 Nasal Cannula 4.00 06/29/17 04:00 98.4 59 16 102/68 (79) 100 06/29/17 03:56 58 06/29/17 00:00 Nasal Cannula 4.00 06/28/17 23:57 51 06/28/17 22:53 17 06/28/17 22:52 17 06/28/17 21:00 Nasal Cannula 4.00 06/28/17 20:03 66 06/28/17 20:00 98.4 66 16 108/59 (75) 92 I/O 06/28/17 06/28/17 06/28/17 06/29/17 06/29/17 06/29/17 07:00 15:00 23:00 07:00 15:00 23:00 Intake Total 240 ml 480 ml 1000 ml Output Total 300 ml 900 ml Balance 240 ml 180 ml 100 ml Intake Oral 240 ml 480 ml IV Total 1000 ml Output Urine Total 300 ml 900 ml # Voids 2 # Bowel Movements 0 0 Result Diagram: 06/27/17 2147 06/26/17 0625 Objective Remarks GENERAL: NAD sitting up in bed. SKIN: Warm and dry. HEAD: Normocephalic. EYES: No scleral icterus. No injection or drainage. NECK: Supple, trachea midline. No JVD. CARDIOVASCULAR: Regular rate and rhythm without murmurs, gallops, or rubs. RESPIRATORY: Breath sounds equal bilaterally. No accessory muscle use. GASTROINTESTINAL: Abdomen soft, non-tender, nondistended. MUSCULOSKELETAL: No cyanosis, or edema. BACK: Nontender without obvious deformity. No CVA tenderness. A/P Assessment and Plan d/w nurse. some blood mixed with urine in wall suction. will replace with Diaper.Patient with VRE uti/ DC to SNF with macrobid to complete treatment course. Vaginal bleeding likely secondary to atrophy. hold Xarelto as there is no need for this medication at this time, chronic microvascular ischemia, but no evidence of embolic stroke.. D/w Dr hollis. Please see discharge medication reconciliation for medication list. Discharge Planning Discharge to SNF in good condition. Tylor Basurto MD Jun 29, 2017 18:18
[2017-06-29 18:40] VITALS: RESP 20
== END 2017-06-29 20:10 ==
LOC: NEPC 21:08 → NEDA 06-25 00:56 → N06B 06-25 02:34 → N04B 06-28 14:01
PROVIDERS: ADMIT Internal Medicine; ATTEND Internal Medicine
DX: N39.0 Urinary tract infection, site not specified (principal); B95.2 Enterococcus as the cause of diseases classified elsewhere; N93.9 Abnormal uterine and vaginal bleeding, unspecified; N17.9 Acute kidney failure, unspecified; I95.9 Hypotension, unspecified; D64.9 Anemia, unspecified; I48.91 Unspecified atrial fibrillation; G20 Parkinson's disease; F32.9 Major depressive disorder, single episode, unspecified; F41.9 Anxiety disorder, unspecified; I25.10 Atherosclerotic heart disease of native coronary artery without angina pectoris; E78.5 Hyperlipidemia, unspecified; K21.9 Gastro-esophageal reflux disease without esophagitis; M79.7 Fibromyalgia; L89.90 Pressure ulcer of unspecified site, unspecified stage; M81.0 Age-related osteoporosis without current pathological fracture; Z79.01 Long term (current) use of anticoagulants; Z90.49 Acquired absence of other specified parts of digestive tract; Z85.048 Personal history of other malignant neoplasm of rectum, rectosigmoid junction, and anus; Z96.653 Presence of artificial knee joint, bilateral; Z98.1 Arthrodesis status; Z66 Do not resuscitate
CPT/HCPCS: 36430; 74176; 76830; 76856; 80048; 80053; 81001; 85025; 85610; 85730; 86077; 86850; 86870; 86880; 86900; 86901; 86902; 86920; 86922; 87077; 87086; 87186; 96361; 96365; 96366; 97110; 97162; 97530; 99285; G0378; G8987; G8988; J0696; J2270; J2405; J7030; J7050; P9016

== ENCOUNTER 2017-09-30 17:23 | Inpatient (IN) | payer MEDICARE ==
[~2017-09-30] VITALS: Ht 165.1 cm; Wt 58.9 kg
[~2017-09-30 17:23] MED LIST changes: +DEXT1CAP5 PO; +IPRASOL INH; +MILKSUS PO; +MUPI2%T TOPICAL; +NITR100C4 PO; -PREG25 PO; +QUES4POW2 PO; +VITA250C3 CHEW; -XARE10TA PO
[2017-09-30 17:28] VITALS: BP 120/58; PULSE 79; RESP 19; O2SAT 99
[2017-09-30 17:41] VITALS: BP 120/58; PULSE 78; RESP 16; O2SAT 97
--- NOTE | 2017-09-30 18:21 | PD ---
HPI Chief Complaint: Fall Time Seen by Provider: 18:15 Travel History International Travel<30 days: No Contact w/Intl Traveler<30days: No Traveled to known affect area: No History of Present Illness HPI Patient comes emergency department from assisted living facility after reported fall per EMS. Reports patient is complaining of left hip and left knee pain. Patient's daughter Tara is power of roll up machine operator reports that patient is always complaining of left hip and knee pain is nothing new. Reports that she received a phone call this morning stating that the patient was being transferred by an aide and slid down onto the floor as the aide was unable to fully transport the patient. Daughter reports that she just left her mother approximately an hour ago who had just finished eating dinner reportedly had to go the bathroom. Daughter states that she received a phone call from the facility stating they were sending her to the emergency room she was complaining of nausea. Patient denies any pain anywhere currently. Patient had a large bowel movement while in the emergency department and reports her nausea has resolved status post bowel movement. Denies any chest pain, shortness of breath, fevers, or abdominal pain. I discussed with patient's daughter what she would like us to evaluate her in the emergency department as patient currently has no complaints. Patient's daughter just wanted to have her hip x-rayed. Patient is a history of vitamin D deficiency, hypothyroidism, Parkinson's, coronary disease, GERD, and arthritis. PFSH Past Medical History Arthritis: Yes Asthma: No Autoimmune Disease: Yes Blood Disorders: No Anxiety: Yes Depression: Yes Heart Rhythm Problems: Yes Cancer: Yes (RESECTION) Cardiovascular Problems: Yes High Cholesterol: Yes Chemotherapy: No Chest Pain: No Congestive Heart Failure: No COPD: No Cerebrovascular Accident: No Coronary Artery Disease: Yes Diabetes: No Diminished Hearing: Yes Endocrine: No Fibromyalgia: Yes Gastrointestinal Disorders: Yes (-2012 GASTROENTERITIS; GI BLEED IN PAST) GERD: Yes Genitourinary: Yes Headaches: No Hiatal Hernia: No Hypertension: No Immune Disorder: Yes (FIBROMYALGIA) Implanted Vascular Access Dvce: Yes Kidney Stones: No Musculoskeletal: Yes (DJD, SPINAL STENOSIS) Neurologic: Yes (PARKINSONS; DEMENTIA) Parkinson's Disease: Yes Psychiatric: No Reproductive: No Respiratory: Yes Immunizations Current: Yes Migraines: No Radiation Therapy: No Renal Failure: No Seizures: No Sickle Cell Disease: No Sleep Apnea: No Thyroid Disease: Yes Ulcer: Yes Menopausal: Yes Past Surgical History Abdominal Surgery: Yes (CHOLECYSTECTOMY, Colon re-section) AICD: No Arteriovenous Shunt: Yes Cardiac Surgery: No Section: Yes (2 and 1965) Cholecystectomy: Yes Ear Surgery: No Endocrine Surgery: No Eye Surgery: Yes (bilateral cataracts) Genitourinary Surgery: No Gynecologic Surgery: Yes (C-SECT) Insulin Pump: No Joint Replacement: Yes (RODS PLACED IN BACK, RIGHT KNEE) Neurologic Surgery: No Oral Surgery: Yes (Complete teeth removal) Pacemaker: No Thoracic Surgery: No Tonsillectomy: Yes Other Surgery: Yes ("back,laminectomy and fusion,annika") Family History Family Hypercholesterolemia: Yes Social History Alcohol Use: No Tobacco Use: No Substance Use: No Allergies-Medications (Allergen,Severity, Reaction): Coded Allergies: *MDRO Multi-Drug Resistant Organism (Verified Allergy, Unknown, 03/23/17) Reported Meds & Prescriptions Reported Meds & Active Scripts Active Nitrofurantoin Monohydrate Macrocrystals (Nitrofurantoin Monoh/Nitrofur Macro) 100 Mg Cap 100 Mg PO BIDPC 7 Days Bactroban Topical (Mupirocin) 22 Gm Cream 1 Applic TOPICAL BID 30 Days Apply to stage 2 sacral ulcer with barrier dressing changes Gnp Melatonin Maximum Str (Melatonin) 5 Mg Tab 5 Mg PO HS PRN Senna Plus 8.6-50 mg (Sennosides-Docusate Sodium) 8.6 Mg-50 Mg Tab 1 Tab PO BID Lyrica (Pregabalin) 100 Mg Cap 100 Mg PO BID Hydrocodone-Acetaminophen 10-325 mg Tab 1 Tab PO Q4H PRN Calcium 600+D 200 (Calcium Carbonate-Vitamin D) 600-200 Mg-Unit Tab 1 Tab PO BID Ergocalciferol 50,000 Unit Cap 50,000 Units PO Q7D Artificial Tears Opth Drops (Propylene Glycol-Glycerin Opth Drops) 1-0.3% Drops 1-2 Drop EACH EYE TID PRN Vitamin D3 (Cholecalciferol) 1,000 Unit Tab 1,000 Units PO DAILY Levothyroxine (Levothyroxine Sodium) 150 Mcg Tab 150 Mcg PO DAILY Omeprazole 20 Mg Tab 20 Mg PO DAILY Plaquenil (Hydroxychloroquine Sulfate) 200 Mg Tab 200 Mg PO DAILY Take with food Multiple Vitamin 1 Tab 1 Tab PO DAILY Walker/Adult/Folding (Device) 1 Mis Mis Ea .ROUTE DIRECTED Reported Sinemet (Carbidopa-Levodopa) 25-100 Mg Tab 1 Tab PO Q6HR Milk of Magnesia Liq (Magnesium Hydroxide) 400 Mg/5 Ml Susp 15 Ml PO DAILY PRN Questran (Cholestyramine) 4 Gm/Dose Powd 4 Gm PO TID 1 level scoopful of powder contains 4 grams of cholestyramine. Vitamin C (Ascorbic Acid) 250 Mg Chew 500 Mg CHEW BID Ferrous Sulfate 325 Mg (65 Mg Iron) Tablet 325 Mg PO BIDPC Duoneb (Ipratropium-Albuterol Neb) 0.5-2.5 Mg/3 Ml Neb 1 Nebule INH DAILY Robitussin Cough Chest Congestion (Dextromethorphan-Guaifenesin) 10-200 Mg Cap 1 Cap PO Q4H PRN Cranberry (Cranberry (Vaccinium Macrocarpon)) 400 Mg Cap 1 Cap PO BID Review of Systems Except as stated in HPI: all other systems reviewed are Neg Physical Exam Narrative GENERAL: Well-developed, well nourished, in no acute distress, and non-ill appearing. SKIN: Focused skin assessment warm and dry. HEAD: Atraumatic. Normocephalic. EYES: Pupils equal and round. EOMI. No scleral icterus. No injection or drainage. ENT: No nasal bleeding or discharge. Mucous membranes pink and moist. NECK: Trachea midline. Supple. No nuclear rigidity. CARDIOVASCULAR: Regular rate and rhythm. Murmur appreciated. RESPIRATORY: No accessory muscle use. No respiratory distress. Decreased breath sounds throughout. Breath sounds equal bilaterally. GASTROINTESTINAL: Abdomen soft, non-tender, nondistended, and no guarding. Hepatic and splenic margins not palpable. Normal bowel sounds x4. No pulsatile mass. MUSCULOSKELETAL: No obvious deformities. No clubbing. No cyanosis. No edema. Decreased range of motion bilateral lower extremity. Patient reports pain with palpation and passive movement of left knee and left hip. No crepitus. Patient reports sensation intact over first webspace and bilaterally. Dorsal pulses equal bilaterally. NEUROLOGICAL: Awake and alert. No obvious cranial nerve deficits. Motor grossly within normal limits. Normal speech. PSYCHIATRIC: Appropriate mood and affect; insight and judgment normal. Data Data Last Documented VS Vital Signs Date Time Temp Pulse Resp B/P (MAP) Pulse Ox O2 Delivery O2 Flow Rate FiO2 09/30/17 19:06 78 16 121/58 (79) 98 Room Air Orders Orders Hip, Uni(Ap&Lat) W Ap Pelvis (09/30/17 ) Chest, Single Ap (09/30/17 ) Knee, Ltd (1 Or 2vws) (09/30/17 ) Basic Metabolic Panel (Bmp) (09/30/17 19:53) Complete Blood Count With Diff (09/30/17 19:53) Prothrombin Time / Inr (Pt) (09/30/17 19:53) Act Partial Throm Time (Ptt) (09/30/17 19:53) Urinalysis - C+S If Indicated (09/30/17 19:53) Iv Access Insert/Monitor (09/30/17 19:53) Ecg Monitoring (09/30/17 19:53) Oximetry (09/30/17 19:53) Sodium Chloride 0.9% Flush (Ns Flush) (09/30/17 20:00) Electrocardiogram (09/30/17 19:53) Consult Orthopedic (09/30/17 ) Admit Order (Ed Use Only) (09/30/17 ) Casualty Underwriter / Telemetry ARTURO.Q8H (09/30/17 20:02) Vital Signs (Adult) Q4H (09/30/17 20:02) Activity Bed Rest (09/30/17 20:02) Notify Dr: Other (09/30/17 20:02) MDM Medical Decision Making Medical Screen Exam Complete: Yes Emergency Medical Condition: Yes Interpretation(s) Last Impressions Knee X-Ray 09/30/17 0000 Signed Impressions: Service Date/Time: Saturday, September 30, 2017 18:34 - CONCLUSION: 1. Advanced osteoarthritis at the left knee. Scottie Lentz MD Hip and Pelvis X-Ray 09/30/17 0000 Signed Impressions: Service Date/Time: Saturday, September 30, 2017 18:24 - CONCLUSION: 1. There is likely a new fracture of the proximal left femur. The left femoral head is slipped inferiorly relative to the previous screw fixation and is widening of the left hip joint. Scottie Lentz MD Chest X-Ray 09/30/17 0000 Signed Impressions: Service Date/Time: Saturday, September 30, 2017 18:36 - CONCLUSION: 1. No active disease. Scottie Lentz MD Differential Diagnosis Fracture, contusion, strain, acute on chronic pain Narrative Course After cork painter and grader took x-rays of hip noted a questionable fracture was called asked for additional x-rays could be done so they would not bring the patient back. Additional x-rays were ordered. Discussed with patient's daughter who is agreeable with this. Upon hip x-ray showing fracture noted. Call was placed orthopedics who recommended having patient admitted for surgery tomorrow. Discussed all findings and plan of care with patient's daughter, who is agreeable for admission. All questions were answered. Discussed patient with hospitalist is agreeable to admit the patient. Initial preop orders were placed. Patient remained stable throughout ED course. Physician Communication Physician Communication [address] Sandoval's PA Segundo Saavedra who recommends having patient n.p.o. after midnight for surgical intervention tomorrow with Dr. Sandoval admission to medicine. [address] Davis, who is agreeable to admit the patient. Diagnosis Primary Impression: Closed left hip fracture Qualified Codes: S72.002A - Fracture of unspecified part of neck of left femur , initial encounter for closed fracture Admitting Information Admitting Physician Requests: Admit Condition: Stable Jatinder Elizalde September 30, 2017 18:21
[2017-09-30 19:06] VITALS: BP 121/58; PULSE 78; RESP 16; O2SAT 98
--- NOTE | 2017-09-30 19:14 | RADRPT ---
EXAM DATE/TIME: 09/30/2017 18:24 [facility] COMPARISON: No previous studies available for comparison. INDICATIONS : Trauma. Fall. MEDICAL HISTORY : Parkinson's. Hypercholesterolemia. Gastroesophageal reflux disease. Thyroid disease. Dementia. Mitral valve prolapse. Coronary artery disease. Hyperlipidemia. Ulcer. Colorectal cancer. Fibromyalgia. Art hritis. Osteoporosis. SURGICAL HISTORY : Tonsillectomy. section. Cholecystectomy. Bilateral cataract surgery. Colon resection. Right knee replacement. Back surgery. ENCOUNTER: Initial ACUITY: 1 day PAIN SCORE: 10/10 LOCATION: Left Hip. FINDINGS: There is previous triple screw fixation of the proximal left femur. Compared with March 24, 2017 th e left femoral head is become displaced and has moved inferiorly. There is widening of the left hip j oint. Bones are osteopenic. Previous fusion lumbar spine. CONCLUSION: 1. There is likely a new fracture of the proximal left femur. The left femoral head is slipped inferi bibi relative to the previous screw fixation and is widening of the left hip joint. Scottie Lentz MD on September 30, 2017 at 19:11 Board Certified Radiologist. This report was verified electronically.
--- NOTE | 2017-09-30 19:27 | RADRPT ---
EXAM DATE/TIME: 09/30/2017 18:34 [facility] COMPARISON: No previous studies available for comparison. INDICATIONS : Pain. Fall. MEDICAL HISTORY : Parkinson's. Hypercholesterolemia. Gastroesophageal reflux disease. Thyroid disease. Dementia. Mitral valve prolapse. Coronary artery disease. Hyperlipidemia. Ulcer. Colorectal cancer. Fibromyalgia. Art hritis. Osteoporosis. SURGICAL HISTORY : Tonsillectomy. section. Cholecystectomy. Bilateral cataract surgery. Colon resection. Right knee replacement. Back surgery. ENCOUNTER: Initial ACUITY: 1 day PAIN SCORE: 4/10 LOCATION: Left Knee. FINDINGS: Advanced osteoarthritis present at the left knee. Bones osteopenic. Metallic staple present overlying the distal femur. CONCLUSION: 1. Advanced osteoarthritis at the left knee. Scottie Lentz MD on September 30, 2017 at 19:24 Board Certified Radiologist. This report was verified electronically.
--- NOTE | 2017-09-30 19:29 | RADRPT ---
EXAM DATE/TIME: 09/30/2017 18:36 [facility] COMPARISON: CHEST SINGLE AP, March 23, 2017, 5:23. INDICATIONS : Possible pre op. Fall. MEDICAL HISTORY : Parkinson's. Hypercholesterolemia. Gastroesophageal reflux disease. Thyroid disease. Dementia. Mitral valve prolapse. Coronary artery disease. Hyperlipidemia. Ulcer. Colorectal cancer. Fibromyalgia. Art hritis. Osteoporosis. SURGICAL HISTORY : Tonsillectomy. section. Cholecystectomy. Bilateral cataract surgery. Colon resection. Right knee replacement. Back surgery. ENCOUNTER: Initial ACUITY: 1 day PAIN SCORE: 0/10 LOCATION: Bilateral chest FINDINGS: No focal consolidation or effusion. Heart size normal. Tortuous aorta. No pneumothorax. Previous fusi on lumbar spine. Surgical clips right upper quadrant. CONCLUSION: 1. No active disease. Scottie Lentz MD on September 30, 2017 at 19:25 Board Certified Radiologist. This report was verified electronically.
[2017-09-30] MEDS ORDERED: SODIUM CHLORIDE 0.9% FLUSH 10 ML FLUSH IV FLUSH PRN ×2 (20:00→20:15)
--- NOTE | 2017-09-30 20:14 | HHI.HP ---
[facility] Service [facility] Primary Care Physician Hammad Huang MD Admission Diagnosis Left hip fracture Diagnoses: (1) Fall Diagnosis: Principal (2) Femur fracture, left Diagnosis: Principal (3) Dementia Diagnosis: Principal Travel History International Travel<30 Days: No Contact w/Intl Traveler <30 Da: No Traveled to Known Affected Are: No History of Present Illness This is an 82-year-old female with a PMH of Anxiety, Depression, Parkinson's Disease, Dementia, Fibromyalgia, h/o GI Bleed and CAD who was sent to the ER from SNF after fall. Pt unable to provide any history due to dementia. Per records, pt had fall while transferring from wheelchair to recliner, +injury to left hip. No reported LOC or head trauma. On arrival, BP 120/58, HR 79, O2 sat 99% on RA, Afebrile. WBC 14.3. Chemistry pending. Hip X-ray with likely fracture of proximal left femur. Knee X-ray with advanced osteoarthritis, metallic staple overlying the distal femur. CXR with no focal consolidation or effusion. Ortho consulted by ER physician, plan is for surgical intervention in am. Review of Systems Except as stated in HPI: all other systems reviewed are Neg ROS: Unable to obtain secondary to dementia. Past Family Social History Past Medical History PMH: Anxiety, Depression, Parkinson's Disease, Dementia, Fibromyalgia, h/o GI Bleed and CAD Past Surgical History PAST SURGICAL HISTORY: Cholecystectomy, Colon Resection, , Bilateral Cataract Surgery, Lumbar Fusion, Right Knee Surgery Allergies: Coded Allergies: *MDRO Multi-Drug Resistant Organism (Verified Allergy, Unknown, 03/23/17) Family History PAST FAMILY HISTORY: Reviewed. No h/o DM or CAD Social History PAST SOCIAL HISTORY: Negative for alcohol, tobacco or drugs. Physical Exam Vital Signs Vital Signs Date Time Temp Pulse Resp B/P (MAP) Pulse Ox O2 Delivery O2 Flow Rate FiO2 09/30/17 19:06 78 16 121/58 (79) 98 Room Air 09/30/17 19:06 78 16 97 Room Air 09/30/17 17:41 78 16 120/58 (78) 97 Room Air 09/30/17 17:28 79 19 120/58 (78) 99 Physical Exam PE: GENERAL: Elderly, demented white female in no acute distress. +tremor HEENT: PERRLA, EOMI. No scleral icterus or conjunctival pallor. No lid lag or facial droop. CARDIOVASCULAR: Regular rate and rhythm. No obvious murmurs to auscultation. No chest tenderness to palpation. RESPIRATORY: No obvious rhonchi or wheezing. Clear to auscultation. Breath sounds equal bilaterally. GASTROINTESTINAL: Abdomen soft, non-tender, nondistended. BS normal. MUSCULOSKELETAL: Extremities without clubbing, cyanosis, or edema. No obvious deformities. Decreased ROM of LLE due to injury NEUROLOGICAL: Awake, alert, dementia. No focal neurologic deficits. Moving both upper and lower extremities spontaneously. Caprini VTE Risk Assessment Caprini VTE Risk Assessment: Mod/High Risk (score >= 2) Caprini Risk Assessment Model Point Value = 1 Point Value = 2 Point Value = 3 Point Value = 5 Age 41-60 Minor surgery BMI > 25 kg/m2 Swollen legs Varicose veins or History of unexplained or recurrent spontaneous Oral contraceptives or hormone replacement Sepsis (< 1 month) Serious lung disease, including pneumonia (< 1 month) Abnormal pulmonary function Acute myocardial infarction Congestive heart failure (< 1 month) History of inflammatory bowel disease Medical patient at bed rest Age 61-74 Arthroscopic surgery Major open surgery (> 45 min) Laparoscopic surgery (> 45 min) Malignancy Confined to bed (> 72 hours) Immobilizing plaster cast Central venous access Age >= 75 History of VTE Family history of VTE Factor V Leiden Prothrombin [id number] Lupus anticoagulant Anticardiolipin antibodies Elevated serum homocysteine Heparin-induced thrombocytopenia Other congenital or acquired thrombophilia Stroke (< 1 month) Elective arthroplasty Hip, pelvis, or leg fracture Acute spinal cord injury (< 1 month) Prophylaxis Regimen Total Risk Factor Score Risk Level Prophylaxis Regimen 0-1 Low Early ambulation 2 Moderate Order ONE of the following: *Sequential Compression Device (SCD) *Heparin 5000 units SQ BID 3-4 Higher Order ONE of the following medications: *Heparin 5000 units SQ TID *Enoxaparin/Lovenox 40 mg SQ daily (WT < 150 kg, CrCl > 30 mL/min) *Enoxaparin/Lovenox 30 mg SQ daily (WT < 150 kg, CrCl > 10-29 mL/min) *Enoxaparin/Lovenox 30 mg SQ BID (WT < 150 kg, CrCl > 30 mL/min) AND/OR *Sequential Compression Device (SCD) 5 or more Highest Order ONE of the following medications: *Heparin 5000 units SQ TID (Preferred with Epidurals) *Enoxaparin/Lovenox 40 mg SQ daily (WT < 150 kg, CrCl > 30 mL/min) *Enoxaparin/Lovenox 30 mg SQ daily (WT < 150 kg, CrCl > 10-29 mL/min) *Enoxaparin/Lovenox 30 mg SQ BID (WT < 150 kg, CrCl > 30 mL/min) AND *Sequential Compression Device (SCD) Assessment and Plan Problem List: (1) Fall ICD Code: W19.XXXA - Unspecified fall, initial encounter (2) Femur fracture, left ICD Code: S72.92XA - Unspecified fracture of left femur, initial encounter for closed fracture (3) Dementia ICD Code: F03.90 - Unspecified dementia without behavioral disturbance Assessment and Plan A/P: 1. Fall: s/p mechanical fall while transferring from wheelchair to recliner per SNF report, no LOC or head trauma noted. 2. Left Femur Fx: Hip X-ray w/ likely new fracture of proximal left femur, images reviewed by me. Ortho consulted, plan is for surgical intervention in am. NPO, IVF, analgesics/antiemetics as needed. Pre-op labs/EKG pending, will follow. CXR w/ no acute findings, images reviewed by me. 3. Dementia: At baseline, resume home Sinemet, Ativan prn if needed. 4. DVT Prophylaxis: Anticoagulation post-op, h/o GI Bleed per records, caution. 5. Social work for d/c planning as needed. 6. Case discussed w/ ER physician at length, labs/records/imaging reviewed by me. Physician Certification 2 Midnight Certification Type: Admission for Inpatient Services Order for Inpatient Services The services are ordered in accordance with Medicare regulations or non- Medicare payer requirements, as applicable. In the case of services not specified as inpatient-only, they are appropriately provided as inpatient services in accordance with the 2-midnight benchmark. Estimated LOS (days): 2 days is the estimated time the patient will need to remain in the hospital, assuming treatment plan goals are met and no additional complications. Post-Hospital Plan: Not yet determined Felipa Davis MD September 30, 2017 20:14
[2017-09-30] MEDS ORDERED: SENNOSIDES 8.6 MG TAB PO PRN (20:15)
[2017-09-30] MEDS ORDERED: MORPHINE SULFATE 4 MG/ML INJ IV PUSH PRN (20:15)
[2017-09-30] MEDS ORDERED: MAGNESIUM HYDROXIDE SUSP 30 ML CUP PO PRN (20:15)
[2017-09-30] MEDS ORDERED: ARTIFICIAL TEARS OPTH SOLN 15 ML BTL EACH EYE PRN (20:15)
[2017-09-30] MEDS ORDERED: BISACODYL 10 MG SUPP RECTAL PRN (20:15)
[2017-09-30] MEDS ORDERED: LACTULOSE SYRUP 20 GM/30 ML CUP PO PRN (20:15)
[2017-09-30] MEDS ORDERED: ACETAMINOPHEN 325 MG TAB PO PRN (20:15)
[2017-09-30] MEDS ORDERED: ONDANSETRON HCL 4 MG/2 ML VIAL IVP PRN (20:15)
[2017-09-30] MEDS ORDERED: RESP: ALBUTEROL 2.5 MG/IPRATROPIUM 0.5 MG NEB (PRN) INH (20:15)
[2017-09-30] MEDS ORDERED: ACETAMINOPHEN/HYDROcodone 325 MG/5 MG TAB PO PRN (20:15)
[2017-09-30 20:34] LABS: AUTOMATED NEUTROPHIL # 13.1 TH/MM3 (1.8-7.7); BASOPHIL % 0.2 % (0.0-2.0); EOSINOPHIL % 0.1 % (0.0-4.0); HEMATOCRIT 33.6 % (35.0-46.0); HEMOGLOBIN 11.5 GM/DL (11.6-15.3); LYMPH % 3.6 % (9.0-44.0); LYMPHOCYTE # 0.5 TH/MM3 (1.0-4.8); MEAN CELL VOLUME 96.9 FL (80.0-100.0); MEAN CORPUSCULAR HGB CONC 34.1 % (32.0-36.0); MEAN PLATELET VOLUME 7.1 FL (7.0-11.0); MONO % 4.7 % (0.0-8.0); MONOCYTE # 0.7 TH/MM3 (0-0.9); NEUT % 91.4 % (16.0-70.0); PLATELET COUNT 236 TH/MM3 (150-450); RED BLOOD COUNT 3.47 MIL/MM3 (4.00-5.30); RED CELL DISTRIBUTION WIDTH 15.5 % (11.6-17.2); WHITE BLOOD COUNT 14.3 TH/MM3 (4.0-11.0)
[2017-09-30 20:46] VITALS: O2SAT 97
[2017-09-30 20:47] LABS: INTERNATIONAL NORMALIZED RATIO 1.1 RATIO; PROTHROMBIN TIME - PATIENT 10.7 SEC (9.8-11.6)
[2017-09-30] MEDS: SODIUM CHLOR 0.9% 1000 ML INJ 1,000 ML IV SCH ×2 (20:50→23:29)
[2017-09-30 20:52] LABS: BICARBONATE 29.2 MEQ/L (21.0-32.0); CALCIUM 8.9 MG/DL (8.5-10.1)
[2017-09-30 20:53] LABS: CREATININE 1.15 MG/DL (0.50-1.00)
[2017-09-30 20:57] VITALS: BP 125/58; PULSE 89; RESP 17; TEMP 98.8; O2SAT 100
[2017-09-30] MEDS: MUPIROCIN 2% CREAM 15 GM TOPICAL SCH (21:00)
[2017-09-30] MEDS: SODIUM CHLORIDE 0.9% FLUSH 10 ML FLUSH IV FLUSH SCH (21:00)
[2017-09-30] MEDS: PREGABALIN 100 MG CAP PO SCH (21:00)
[2017-09-30] MEDS: DOCUSATE SODIUM 50 MG/SENNA 8.6 MG TAB PO SCH (22:02)
[2017-09-30 22:12] VITALS: PULSE 88
[2017-09-30] MEDS: LEVOTHYROXINE SODIUM 150 MCG TAB PO SCH (23:29)
[2017-09-30] MEDS: CARBIDOPA/LEVODOPA 25 MG/100 MG TAB PO SCH ×2 (23:29→23:30)
[2017-10-01] VITALS (7 sets, daily range): BP systolic 92–119; BP diastolic 51–98; PULSE 67–98; RESP 15–17; TEMP 98.1–98.9; O2SAT 95–99
[2017-10-01] MEDS: SODIUM CHLOR 0.9% 1000 ML INJ 1,000 ML IV SCH (06:40)
--- NOTE | 2017-10-01 07:00 | PD.ORT.PN ---
Subjective Subjective Remarks s/p fall hx of left femoral neck fx with perc pinning pt confused Objective Vitals Vital Signs Date Time Temp Pulse Resp B/P (MAP) Pulse Ox O2 Delivery O2 Flow Rate FiO2 10/01/17 04:03 67 10/01/17 04:00 98.1 98 15 106/98 (101) 98 10/01/17 00:01 84 10/01/17 00:00 98.9 84 16 118/58 (78) 99 09/30/17 22:12 88 09/30/17 20:57 09/30/17 20:57 98.8 89 17 125/58 (80) 100 09/30/17 20:46 97 09/30/17 19:06 78 16 121/58 (79) 98 Room Air 09/30/17 19:06 78 16 97 Room Air 09/30/17 17:41 78 16 120/58 (78) 97 Room Air 09/30/17 17:28 79 19 120/58 (78) 99 I/O 09/30/17 09/30/17 09/30/17 10/01/17 10/01/17 10/01/17 07:00 15:00 23:00 07:00 15:00 23:00 Intake Total 1000 ml Balance 1000 ml Intake Oral 0 ml IV Total 1000 ml # Voids 1 # Bowel Movements 1 Result Diagram: 09/30/17201909/30/172019 Other Results Laboratory Tests Test 09/30/17 20:20 Prothromb Time International Ratio 1.1 RATIO Prothrombin Time 10.7 SEC (9.8-11.6) Objective Remarks LLE: pain with hip motion. nvi Assessment & Plan Assessment and Plan 1) Left Periprosthetic Femoral NEck Fx -npo -consents -surgery today with Dr Lori Watkins,Festus Baeza PA/Manager Of Development PA October 01, 2017 07:00
[2017-10-01] MEDS ORDERED: HYDR-3580 PO (07:01)
[2017-10-01] MEDS ORDERED: ASPI1CHW4 CHEW (07:01)
[2017-10-01 07:04] LABS: AUTOMATED NEUTROPHIL # 5.3 TH/MM3 (1.8-7.7); BASOPHIL % 0.2 % (0.0-2.0); EOSINOPHIL # 0.1 TH/MM3 (0-0.4); HEMATOCRIT 30.6 % (35.0-46.0); HEMOGLOBIN 10.6 GM/DL (11.6-15.3); LYMPH % 18.9 % (9.0-44.0); LYMPHOCYTE # 1.4 TH/MM3 (1.0-4.8); MEAN CELL VOLUME 97.2 FL (80.0-100.0); MEAN CORPUSCULAR HEMOGLOBIN 33.6 PG (27.0-34.0); MEAN CORPUSCULAR HGB CONC 34.6 % (32.0-36.0); MEAN PLATELET VOLUME 7.4 FL (7.0-11.0); MONO % 7.9 % (0.0-8.0); MONOCYTE # 0.6 TH/MM3 (0-0.9); PLATELET COUNT 210 TH/MM3 (150-450); RED BLOOD COUNT 3.15 MIL/MM3 (4.00-5.30); RED CELL DISTRIBUTION WIDTH 15.6 % (11.6-17.2); WHITE BLOOD COUNT 7.4 TH/MM3 (4.0-11.0)
[2017-10-01 07:37] LABS: ALBUMIN 3.1 GM/DL (3.4-5.0); AST (GOT) 31 U/L (15-37); BICARBONATE 32.1 MEQ/L (21.0-32.0); BLOOD UREA NITROGEN 19 MG/DL (7-18); CALCIUM 8.2 MG/DL (8.5-10.1); CHLORIDE 106 MEQ/L (98-107); CREATININE 1.13 MG/DL (0.50-1.00); GLOMERULAR FILTRATION RATE 46 ML/MIN (>89); GLUCOSE,RANDOM 88 MG/DL (74-106); SODIUM (NA) 144 MEQ/L (136-145)
[2017-10-01 07:40] LABS: ALKALINE PHOSPHATASE 64 U/L (45-117); ALT (GPT) 15 U/L (10-53); TOTAL BILIRUBIN ADULT 0.6 MG/DL (0.2-1.0); TOTAL PROTEIN 6.8 GM/DL (6.4-8.2)
[2017-10-01] MEDS: MUPIROCIN 2% CREAM 15 GM TOPICAL SCH ×2 (09:00→21:00)
[2017-10-01] MEDS: PREGABALIN 100 MG CAP PO SCH ×2 (09:00→21:43)
[2017-10-01] MEDS: PANTOPRAZOLE SOD 20 MG DELAYED RELEASE TAB PO SCH (09:00)
[2017-10-01] MEDS: HYDROXYCHLOROQUINE SULFATE 200 MG TAB PO SCH (09:00)
[2017-10-01] MEDS: MULTIVITAMIN TAB PO SCH (09:00)
[2017-10-01] MEDS: DOCUSATE SODIUM 50 MG/SENNA 8.6 MG TAB PO SCH ×2 (09:00→21:43)
[2017-10-01] MEDS ORDERED: ceFAZolin INJ 1,000 MG VIAL ONE (09:13)
[2017-10-01] MEDS ORDERED: GENTAMICIN SULFATE 80 MG/2 ML VIAL ONE ×2 (09:13)
[2017-10-01] MEDS ORDERED: VANCOMYCIN HCL 1000 MG VIAL ONE ×3 (09:14→10:33)
[2017-10-01] MEDS ORDERED: TRANEXAMIC ACID INJ 1,000 MG/10 ML AMP ONE (09:26)
--- NOTE | 2017-10-01 09:31 | HHI.PR ---
Subjective Remarks Follow up for left femur fracture. Resting in bed. She is waiting for surgery this morning. No chest pain, shortness of breath, fever or chills. Pain is well controlled. Objective Vitals Vital Signs Date Time Temp Pulse Resp B/P (MAP) Pulse Ox O2 Delivery O2 Flow Rate FiO2 10/01/17 08:00 98.3 75 17 119/51 (73) 99 10/01/17 04:03 67 10/01/17 04:00 98.1 98 15 106/98 (101) 98 10/01/17 00:01 84 10/01/17 00:00 98.9 84 16 118/58 (78) 99 09/30/17 22:12 88 09/30/17 20:57 09/30/17 20:57 98.8 89 17 125/58 (80) 100 09/30/17 20:46 97 09/30/17 19:06 78 16 121/58 (79) 98 Room Air 09/30/17 19:06 78 16 97 Room Air 09/30/17 17:41 78 16 120/58 (78) 97 Room Air 09/30/17 17:28 79 19 120/58 (78) 99 I/O 09/30/17 09/30/17 09/30/17 10/01/17 10/01/17 10/01/17 07:00 15:00 23:00 07:00 15:00 23:00 Intake Total 1000 ml Balance 1000 ml Intake Oral 0 ml IV Total 1000 ml # Voids 1 # Bowel Movements 1 Result Diagram: 10/01/17 0600 10/01/17 0600 Imaging Last Impressions Knee X-Ray 09/30/17 0000 Signed Impressions: Service Date/Time: Saturday, September 30, 2017 18:34 - CONCLUSION: 1. Advanced osteoarthritis at the left knee. Scottie Lentz MD Hip and Pelvis X-Ray 09/30/17 0000 Signed Impressions: Service Date/Time: Saturday, September 30, 2017 18:24 - CONCLUSION: 1. There is likely a new fracture of the proximal left femur. The left femoral head is slipped inferiorly relative to the previous screw fixation and is widening of the left hip joint. Scottie Lentz MD Chest X-Ray 09/30/17 0000 Signed Impressions: Service Date/Time: Saturday, September 30, 2017 18:36 - CONCLUSION: 1. No active disease. Scottie Lentz MD Objective Remarks GENERAL: Alert, NAD. SKIN: Warm and dry. HEAD: Normocephalic. EYES: No scleral icterus. No injection or drainage. NECK: Supple, trachea midline. No JVD or lymphadenopathy. CARDIOVASCULAR: Regular rate and rhythm without murmurs, gallops, or rubs. RESPIRATORY: Breath sounds equal bilaterally. No accessory muscle use. GASTROINTESTINAL: Abdomen soft, non-tender, nondistended. MUSCULOSKELETAL: No cyanosis, or edema. Decreased range of motion of the lower extremity. BACK: Nontender without obvious deformity. No CVA tenderness. A/P Problem List: (1) Fall ICD Code: W19.XXXA - Unspecified fall, initial encounter (2) Femur fracture, left ICD Code: S72.92XA - Unspecified fracture of left femur, initial encounter for closed fracture (3) Dementia ICD Code: F03.90 - Unspecified dementia without behavioral disturbance Assessment and Plan Ms. Church is an 82-year-old female with a PMH of Anxiety, Depression, Parkinson's Disease, Dementia, Fibromyalgia, h/o GI Bleed and CAD who was sent to the ER from SNF after fall. Hip X-ray with likely fracture of proximal left femur. Ortho consulted. Mechanical fall Left femur fracture - Orthopedic surgical intervention 10/01/2017. - Continue Acetaminophen, Parshall, Morphine IV for pain -Bowel regimen in place. Parkinson's disease Anxiety/Depression Fibromyalgia - Continue carbidopa levodopa, Lyrica. Full code. SCDs. Daniel Polanco DO October 01, 2017 9:30 am
[2017-10-01] MEDS ORDERED: ERGOCALCIFEROL (VIT D2) 50,000 UNIT CAP PO ONE (11:00)
[2017-10-01] MEDS ORDERED: MORPHINE SULFATE 4 MG/ML INJ IV PUSH PRN (11:00)
[2017-10-01] MEDS ORDERED: Post-op Orders (for Pharmacy) XX ONE (11:00)
--- NOTE | 2017-10-01 11:01 | PD.OP ---
cc: Porter Ojeda MD Operative Report Date of Surgery: October 01, 2017 Preoperative Diagnosis: Displaced left femoral neck fracture, retained hardware left hip Postoperative Diagnosis: Procedure: Removal deep hardware, left hip hemiarthroplasty Anesthesia: General Surgeon: Porter Ojeda Automation/Controls Manager(s): RODERICK Laguerre PA-C The surgical procedure was assisted by my physician commercial assistant. My P.A. presence was necessary throughout this case for the manipulation and positioning of the surgical extremity. My P.A. was assisting me throughout the duration of this procedure. The skill set of a physician commercial assistant was medically necessary to complete this procedure. During the surgical case the surgical forceps fabricator was working at the back table and the physician commercial assistant was directly assisting me. Operation and Findings: PLAN OF ACTIVITY Weight bear as tolerated. IMPLANTS USED DePuy cemented [place] size [5] stem with size [49] bipolar head and [+1] neck. DETAILS OF PROCEDURE This patient was brought into the operating room and placed on the OR table. The patient was given anesthesia. The patient received IV antibiotics. The patient was then placed in lateral decubitus position. The hip and leg were prepped with alcohol, followed by Hibiclens and draped in a usual sterile fashion. Clean air was used for this procedure. Time out procedure was performed. The procedure began with a 5 inch incision over the posterolateral left hip. The subcutaneous tissue was dissected with the Bovie. The iliotibial band were split in line with fibers. The Charnley retractor was placed. At this point attention was turned to hardware removal. The screws were identified. Guidepins were placed in the screws. Using appropriate screwdrivers the 3 cannulated screws were removed. Next the hip was exposed. The piriformis and external rotators were released from the femur and tagged with a #1 Vicryl suture. The capsule is now incised and tagged with #1 Vicryl. The femoral neck fracturewas now visualized. A corkscrew was now used to remove the femoral head. The femoral head was sized and measured. Soft tissue was now protected. The hip skid was placed underneath the femoral neck. An oscillating saw was used to make a femoral neck cut. At this point attention was turned to preparation of the proximal femur. A box osteotome was used to remove the lateral cortex of the femoral neck. The T- handle reamer was used to open the femoral canal. The canal was now reamed. Next , the canal was broached up to appropiate size. A lateralizing reamer was used to help lateralize the prosthesis. At this point a trial head and neck were placed. The hip was reduced. The patient was found to have excellent stability with good range of motion. Trial components were removed. Soft tissue and bone were thoroughly irrigated. The summit stem was now opened. Cement was mixed with vancomycin powder. Cement was pressurized into the femoral canal. The stem was now placed into the proximal femur. Care was taken to keep appropriate anteversion. excess cement was removed. After cement was set, the head and neck were now impacted onto the stem. The hip was again reduced. The hip was found to have good range of motion and good stability. Leg lengths were clinically equal. The wound was thoroughly irrigated. The capsule, piriformis and iliotibial band were closed with #1 Vicryl. Subcutaneous tissue was closed with 3-0 Vicryl. The skin was closed with josh. A sterile dressing was applied with Primapore. The patient was placed into a knee immobilizer. The patient was awakened and transferred to the recovery room in stable condition. Needle and sponge counts were correct. Porter Ojeda MD October 01, 2017 11:01
[2017-10-01] MEDS ORDERED: *morphine SULFATE 4 MG/ML PERIprocedure ONLY ONE (11:56)
[2017-10-01] MEDS ORDERED: LIDOCAINE HCL 1% PF 5 ML SYRINGE OTHER ONE (12:00)
[2017-10-01] MEDS ORDERED: ONDANSETRON HCL 4 MG/2 ML VIAL IV ONE (12:00)
[2017-10-01] MEDS: CARBIDOPA/LEVODOPA 25 MG/100 MG TAB PO SCH ×3 (12:00→23:48)
[2017-10-01] MEDS ORDERED: PROPOFOL 200 MG/20 ML AMP IV ONE (12:00)
[2017-10-01] MEDS ORDERED: NEOSTIGMINE 5 MG/5 ML SYRINGE IV PUSH ONE (12:00)
[2017-10-01] MEDS ORDERED: ePHEDrine/NS 25 MG/5 ML SYRINGE IV ONE (12:00)
[2017-10-01] MEDS ORDERED: PHENYLEPH/NS 1000 MCG/10 ML SYR IV ONE (12:00)
[2017-10-01] MEDS ORDERED: DEXAMETHASONE SOD PHOS 4 MG/ML VIAL IV ONE (12:00)
[2017-10-01] MEDS ORDERED: GLYCOPYRROLATE 1 MG/5 ML SYRINGE IV PUSH ONE (12:00)
[2017-10-01] MEDS ORDERED: ROCURONIUM INJ 50 MG/5 ML SYRINGE IV PUSH ONE (12:00)
[2017-10-01] MEDS ORDERED: DO NOT ADM ANY ANTICOAGULANT DRUGS PRN (12:15)
--- NOTE | 2017-10-01 12:44 | MB ---
cc: Porter Sandoval MD DATE: 10/01/2017 REASON FOR CONSULTATION: Displaced left femoral neck fracture CONSULTING PHYSICIAN: Dr. Davis. HISTORY OF PRESENT ILLNESS: Blanca is an 82-year-old female who is known to me from previous left hip fracture. She has significant dementia. [facility]. She previously had a hip fracture of the left hip in 02/2017, treated with pinning. She has had difficulty ambulating since that time. She presented in the Emergency Room, where x-rays revealed a displaced left femoral neck fracture. She is currently awake in the orthopedic floor. She does have significant confusion and is unable to give any history. She does not recall the fall. She is alert only to person. PAST MEDICAL HISTORY: Anxiety, depression, Parkinson's disease, dementia, fibromyalgia, and history of GI bleed. PAST SURGICAL HISTORY: Cholecystectomy, colon resection, , bilateral cataract surgery, lumbar fusion, and left hip pinning. ALLERGIES: NO KNOWN DRUG ALLERGIES. FAMILY HISTORY: Unobtainable secondary to dementia. SOCIAL HISTORY: The patient is currently [facility] in a [facility] facility. REVIEW OF SYSTEMS: Unobtainable secondary to dementia. PHYSICAL EXAMINATION: GENERAL: The patient is a pleasantly-demented 82-year-old female. She is awake but confused. She is unable to answer most questions appropriately. She appears well-developed, well-nourished. VITAL SIGNS: Temperature 97.5, pulse 76, respirations 25, blood pressure 135/60, O2 saturation 100% on 3 liters nasal cannula. HEENT: Head: The patient is normocephalic. Pupils are equal. NECK: Soft, nontender. The trachea is in the midline. ABDOMEN: Soft, nontender, and nondistended. EXTREMITIES: Examination of the bilateral upper extremities reveals no obvious pain or deformity with shoulder, elbow, or wrist motion. She has good cap refill in all her fingers. Skin is intact. Radial pulses are palpable. Examination of the right leg reveals no pain with hip, knee, or ankle motion. Skin is intact. Dorsalis pedis pulse is palpable. Sensation is intact. Examination of the left leg reveals pain with any hip motion. Her left leg is shortened and externally rotated. She has no tenderness around her knee, tibia, or ankle. Calf and thigh compartments are soft. Sensation intact to the left foot. IMAGING STUDIES: X-ray of the left hip are reviewed. X-rays reveal a displaced left femoral neck fracture. There is hardware present from her previous surgery. LABORATORY DATA: White blood cell count of 7.4, platelet count of 210, hematocrit of 30.6. INR is 1.1. BUN is 19 and creatinine is 1.13. IMPRESSION: 1. Dementia. 2. Displaced left femoral neck fracture. 3. Retained hardware, left hip. 4. Parkinson disease. 5. History of gastrointestinal bleed. PLAN: The treatment options were discussed with the patient. I also called the patient's daughter to discuss treatment plan. At this point, I would recommend left hip hemiarthroplasty. She will need removal of hardware. Risks of surgery included bleeding, infection; injuries to arteries, nerves or blood vessels; hip dislocation, leg length discrepancies as well as medical complications including blood clot, stroke, heart attack, and . All questions were answered. She recently had a GI bleed while she was taking Xarelto. At this point, I will plan on postoperative deep vein thrombosis prophylaxis with SCDs, ELSA hose, and aspirin to help avoid further GI bleeding. All questions were answered. I will plan on surgery today. A mid-level provider in my office, nurse practitioner or PA, may see this patient on a follow-up basis and continue to implement the objective of this plan including: Starting or adjusting medications, injections of muscle, tendon, bursa or joints, cast application, orthotic or brace application, physical therapy, further radiographic studies including x-ray, MRI, CT, ultrasounds or bone scan, vascular studies, neurologic studies, or other specialist consultations, and proceeding with surgical management as appropriate. MD DORY Mayes/FRANC , 12:18 PM , 12:43 PM
--- NOTE | 2017-10-01 12:54 | RADRPT ---
EXAM DATE/TIME: 10/01/2017 12:41 [facility] COMPARISON: HIP LEFT (AP&LAT 2/3VWS) W AP PELVIS, September 30, 2017, 18:24. INDICATIONS : Post Op MEDICAL HISTORY : Parkinson's. Hypercholesterolemia. Gastroesophageal reflux disease. Thyroid disease. Dementia. Mitral valve prolapse. Coronary artery disease. Hyperlipidemia. Ulcer. Colorectal cancer. Fibromyalgia. Art hritis.Osteoporosis. SURGICAL HISTORY : Tonsillectomy. section. Cholecystectomy. Bilateral cataract surgery. Colon resection. Right knee replacement. Back surgery. ENCOUNTER: Subsequent ACUITY: 2 days PAIN SCORE: Non-responsive. LOCATION: Left pelvis FINDINGS: 3 views of the left hip and pelvis. Lumbar surgical hardware noted. Left-sided hip bipolar hemiarthro plasty. Alignment within normal limits. No evidence of fracture. Small osteophytes of the right hip. Diffuse bone demineralization. CONCLUSION: New left hip hemiarthroplasty. Postoperative appearance is unremarkable. Russell Rowland MD on October 01, 2017 at 12:50 Board Certified Radiologist. This report was verified electronically.
--- NOTE | 2017-10-01 13:47 | EKG ---
Date Performed: 09/30/2017 Time Performed: 22:01:01 PTAGE: 82 years EKG: Sinus rhythm WITH FIRST DEGREE AV BLOCK MARKED LEFT AXIS DEVIATION LOW QRS VOLTAGE IN PRECORDIAL LEADS POSSIBLE R IGHT VENTRICULAR CONDUCTION DELAY NONSPECIFIC T-WAVE ABNORMALITY ABNORMAL ECG NO PREVIOUS TRACING 03/23/2017 09.36 Since the previous tracing, no significant change no christina DOCTOR: Jarad Muro Interpretating Date/Time 10/01/2017 13:45:04
[2017-10-01] MEDS: ceFAZolin 2 GM PREMIX 50 ML IV SCH ×2 (15:47→21:54)
[2017-10-01] MEDS: ACETAMINOPHEN/HYDROcodone 325 MG/7.5 MG TAB PO PRN (21:43)
[2017-10-01] MEDS: SODIUM CHLORIDE 0.9% FLUSH 10 ML FLUSH IV FLUSH SCH (21:59)
[2017-10-02] VITALS (10 sets, daily range): BP systolic 92–115; BP diastolic 44–52; PULSE 73–91; RESP 16–18; TEMP 97.9–99.2; O2SAT 93–99
[2017-10-02] MEDS: SODIUM CHLOR 0.9% 1000 ML INJ 1,000 ML IV SCH ×2 (01:16→11:15)
[2017-10-02] MEDS: ceFAZolin 2 GM PREMIX 50 ML IV SCH (02:47)
[2017-10-02] MEDS: ACETAMINOPHEN/HYDROcodone 325 MG/7.5 MG TAB PO PRN ×5 (04:31→20:03)
[2017-10-02 04:45] LABS: HEMATOCRIT 22.4 % (35.0-46.0); HEMOGLOBIN 7.8 GM/DL (11.6-15.3)
[2017-10-02] MEDS: LEVOTHYROXINE SODIUM 150 MCG TAB PO SCH (06:19)
[2017-10-02] MEDS: CARBIDOPA/LEVODOPA 25 MG/100 MG TAB PO SCH ×4 (06:19→23:33)
--- NOTE | 2017-10-02 07:08 | HHI.PR ---
Subjective Remarks Patient seen and examined this morning, their vitals are stable and the patient is afebrile. Patient states pain well controlled. Denies CP or difficulty breathing. Objective Vital Signs Date Time Temp Pulse Resp B/P (MAP) Pulse Ox O2 Delivery O2 Flow Rate FiO2 10/02/17 05:17 18 10/02/17 04:00 78 10/02/17 04:00 99.2 79 16 106/49 (68) 97 10/02/17 01:49 77 10/02/17 00:01 98.0 76 18 96/52 (67) 97 10/01/17 22:26 16 10/01/17 22:17 Room Air 10/01/17 20:00 98.6 80 16 92/54 (67) 97 10/01/17 20:00 81 10/01/17 16:00 98.3 73 17 103/55 (71) 95 10/01/17 12:15 66 23 102/51 (68) 100 Nasal Cannula 3 10/01/17 12:00 77 20 121/58 (79) 100 Nasal Cannula 3 10/01/17 11:45 72 24 119/53 (75) 100 Nasal Cannula 3 10/01/17 11:30 76 25 135/60 (85) 100 Nasal Cannula 3 10/01/17 11:24 97.5 85 25 108/68 (81) 100 Nasal Cannula 3 10/01/17 08:00 98.3 75 17 119/51 (73) 99 I/O 10/01/17 10/01/17 10/01/17 10/02/17 10/02/17 10/02/17 07:00 15:00 23:00 07:00 15:00 23:00 Intake Total 1000 ml 1500 ml 480 ml 360 ml Output Total 150 ml Balance 1000 ml 1350 ml 480 ml 360 ml Intake Oral 0 ml 480 ml 360 ml IV Total 1000 ml 1500 ml Output Estimated Blood Loss 150 ml # Voids 1 3 3 # Bowel Movements 1 2 0 Result Diagram: 10/02/17 0416 10/01/17 0600 Imaging Last Impressions Hip and Pelvis X-Ray 10/01/17 1056 Signed Impressions: Service Date/Time: Sunday, October 01, 2017 12:41 - CONCLUSION: New left hip hemiarthroplasty. Postoperative appearance is unremarkable. Russell Rowland MD Knee X-Ray 09/30/17 0000 Signed Impressions: Service Date/Time: Saturday, September 30, 2017 18:34 - CONCLUSION: 1. Advanced osteoarthritis at the left knee. Scottie Lentz MD Chest X-Ray 09/30/17 0000 Signed Impressions: Service Date/Time: Saturday, September 30, 2017 18:36 - CONCLUSION: 1. No active disease. Scottie Lentz MD Objective Remarks GENERAL: Well-appearing, no acute distress SKIN: Warm and dry. HEAD: Normocephalic. EYES: No scleral icterus. No injection or drainage. NECK: Supple, trachea midline. No JVD or lymphadenopathy. CARDIOVASCULAR: Regular rate and rhythm without murmurs, gallops, or rubs. RESPIRATORY: Breath sounds equal bilaterally. No accessory muscle use. GASTROINTESTINAL: Abdomen soft, non-tender, nondistended. MUSCULOSKELETAL: left knee immobilizer A/P Problem List: (1) Hypothyroidism ICD Code: E03.9 - Hypothyroidism, unspecified Status: Chronic (2) Sjogren's disease ICD Code: M35.00 - Sicca syndrome, unspecified Status: Chronic (3) Left displaced femoral neck fracture ICD Code: S72.002A - Fracture of unspecified part of neck of left femur, initial encounter for closed fracture (4) Postoperative anemia due to acute blood loss ICD Code: D62 - Acute posthemorrhagic anemia Status: Acute (5) Dementia ICD Code: F03.90 - Unspecified dementia without behavioral disturbance Assessment and Plan 82-year-old female with a medical or significant anxiety, depression, Parkinson' s disease, fibromyalgia, history of GI bleed on Xarelto, coronary artery disease , who presents to [facility] from [facility] after a fall. Found to have left femoral fracture. Left femoral fracture Patient has been seen and evaluated by Dr. Sandoval Patient had a GI bleed on Xarelto. Patient is status post left hip hemiarthroplasty HB 7.8 post op, 11.5 pre op--> continue to watch closely PT recommends rehab Pain control per ortho Fibromyalgia Continue home pain meds Hypothyroidism Continue levothyroxine Was being treated for UTI as outpatient Unclear how many days of treatment she had received Obtain UA Dementia cont sinemet DVT prophy lovenox GI proh protonix Discharge Planning d/c to SNF pending ortho reccs Anne-Marie Bañuelos MD October 02, 2017 07:08
[2017-10-02] MEDS: MUPIROCIN 2% CREAM 15 GM TOPICAL SCH ×2 (09:00→20:08)
[2017-10-02] MEDS: CHOLECALCIFEROL (VIT D3) 5000 UNIT CAP PO SCH (09:42)
[2017-10-02] MEDS: HYDROXYCHLOROQUINE SULFATE 200 MG TAB PO SCH (09:42)
[2017-10-02] MEDS: MULTIVITAMIN TAB PO SCH (09:42)
[2017-10-02] MEDS: PREGABALIN 100 MG CAP PO SCH ×2 (09:42→20:03)
[2017-10-02] MEDS: PANTOPRAZOLE SOD 20 MG DELAYED RELEASE TAB PO SCH (09:42)
[2017-10-02] MEDS: DOCUSATE SODIUM 50 MG/SENNA 8.6 MG TAB PO SCH ×2 (09:42→20:03)
[2017-10-02] MEDS: SODIUM CHLORIDE 0.9% FLUSH 10 ML FLUSH IV FLUSH SCH ×2 (09:42→20:04)
[2017-10-02] MEDS: ENOXAPARIN SODIUM 30 MG/0.3 ML SYRINGE SQ SCH (11:00)
[2017-10-02 14:06] LABS: BACTERIA, URINE MANY /hpf; BILIRUBIN, URINE NEG (NEG); BLOOD, URINE MOD (NEG); GLUCOSE,URINE NEG (NEG); KETONE, URINE NEG (NEG); NITRITE,URINE NEG (NEG); PH, URINE 5.5 (5.0-8.5); SQUAMOUS EPITHELIAL CELL URINE 18 /hpf (0-5); URINE COLOR LIGHT-YELLOW (YELLW/STRAW); URINE LEUKOCYTE ESTERASE LARGE (NEG); WHITE BLOOD CELL CLUMPS MANY
--- NOTE | 2017-10-02 15:27 | HHI.PR ---
Subjective Remarks NOT SEEN Objective Vitals Vital Signs Date Time Temp Pulse Resp B/P (MAP) Pulse Ox O2 Delivery O2 Flow Rate FiO2 10/02/17 11:16 97.9 74 17 92/51 (65) 96 10/02/17 09:49 98.3 91 17 109/51 (70) 99 10/02/17 09:47 Room Air 10/02/17 09:00 73 10/02/17 05:17 18 10/02/17 04:00 78 10/02/17 04:00 99.2 79 16 106/49 (68) 97 10/02/17 01:49 77 10/02/17 00:01 98.0 76 18 96/52 (67) 97 10/01/17 22:26 16 10/01/17 22:17 Room Air 10/01/17 20:00 98.6 80 16 92/54 (67) 97 10/01/17 20:00 81 10/01/17 16:00 98.3 73 17 103/55 (71) 95 I/O 10/01/17 10/01/17 10/01/17 10/02/17 10/02/17 10/02/17 07:00 15:00 23:00 07:00 15:00 23:00 Intake Total 1000 ml 1500 ml 530 ml 410 ml Output Total 150 ml Balance 1000 ml 1350 ml 530 ml 410 ml Intake Oral 0 ml 480 ml 360 ml IV Total 1000 ml 1500 ml 50 ml 50 ml Output Estimated Blood Loss 150 ml # Voids 1 3 3 # Bowel Movements 1 2 0 Result Diagram: 10/02/17 0416 10/01/17 0600 Imaging Last Impressions Hip and Pelvis X-Ray 10/01/17 1056 Signed Impressions: Service Date/Time: Sunday, October 01, 2017 12:41 - CONCLUSION: New left hip hemiarthroplasty. Postoperative appearance is unremarkable. Russell Rowland MD Knee X-Ray 09/30/17 0000 Signed Impressions: Service Date/Time: Saturday, September 30, 2017 18:34 - CONCLUSION: 1. Advanced osteoarthritis at the left knee. Scottie Lentz MD Chest X-Ray 09/30/17 0000 Signed Impressions: Service Date/Time: Saturday, September 30, 2017 18:36 - CONCLUSION: 1. No active disease. Scottie Lentz MD Objective Remarks GENERAL: Well-appearing, no acute distress SKIN: Warm and dry. HEAD: Normocephalic. EYES: No scleral icterus. No injection or drainage. NECK: Supple, trachea midline. No JVD or lymphadenopathy. CARDIOVASCULAR: Regular rate and rhythm without murmurs, gallops, or rubs. RESPIRATORY: Breath sounds equal bilaterally. No accessory muscle use. GASTROINTESTINAL: Abdomen soft, non-tender, nondistended. MUSCULOSKELETAL: left knee immobilizer Procedures left hip hemiarthroplasty A/P Problem List: (1) Fall ICD Code: W19.XXXA - Unspecified fall, initial encounter (2) Femur fracture, left ICD Code: S72.92XA - Unspecified fracture of left femur, initial encounter for closed fracture (3) Dementia ICD Code: F03.90 - Unspecified dementia without behavioral disturbance Assessment and Plan 82-year-old female with a medical or significant anxiety, depression, Parkinson' s disease, fibromyalgia, history of GI bleed on Xarelto, coronary artery disease , who presents to [facility] from sniff after a fall. Found to have left femoral fracture. Left femoral fracture Patient has been seen and evaluated by Dr. Sandoval Patient had a hx GI bleed on Xarelto. Patient is status post left hip hemiarthroplasty HB 7.8 post op, 11.5 pre op--> continue to watch closely PT recommends rehab Pain control per ortho Fibromyalgia Continue home pain meds Hypothyroidism Continue levothyroxine Was being treated for UTI as outpatient Unclear how many days of treatment she had received Obtain UA Dementia cont sinemet DVT prophy lovenox GI proh protonix Aydin Clay MD October 02, 2017 15:27
[2017-10-03] VITALS (9 sets, daily range): BP systolic 80–98; BP diastolic 40–56; PULSE 75–94; RESP 17–18; TEMP 97.4–99.8; O2SAT 94–97
[2017-10-03] MEDS: LEVOTHYROXINE SODIUM 150 MCG TAB PO SCH (05:19)
[2017-10-03] MEDS: CARBIDOPA/LEVODOPA 25 MG/100 MG TAB PO SCH ×4 (05:19→23:23)
[2017-10-03 06:23] LABS: AUTOMATED NEUTROPHIL # 4.1 TH/MM3 (1.8-7.7); BASOPHIL % 0.4 % (0.0-2.0); EOSINOPHIL # 0.1 TH/MM3 (0-0.4); EOSINOPHIL % 2.1 % (0.0-4.0); HEMOGLOBIN 7.1 GM/DL (11.6-15.3); LYMPH % 20.6 % (9.0-44.0); LYMPHOCYTE # 1.2 TH/MM3 (1.0-4.8); MEAN CELL VOLUME 96.8 FL (80.0-100.0); MEAN CORPUSCULAR HEMOGLOBIN 33.4 PG (27.0-34.0); MEAN CORPUSCULAR HGB CONC 34.5 % (32.0-36.0); MEAN PLATELET VOLUME 7.4 FL (7.0-11.0); MONO % 9.2 % (0.0-8.0); MONOCYTE # 0.6 TH/MM3 (0-0.9); NEUT % 67.7 % (16.0-70.0); PLATELET COUNT 167 TH/MM3 (150-450); RED BLOOD COUNT 2.11 MIL/MM3 (4.00-5.30); RED CELL DISTRIBUTION WIDTH 15.2 % (11.6-17.2)
[2017-10-03 06:32] LABS: HEMATOCRIT 20.5 % (35.0-46.0)
--- NOTE | 2017-10-03 06:46 | PD.ORT.PN ---
Subjective Subjective Remarks POD 2 s/p left hip hemiarthroplasty improving. more lucid. Objective Vitals Vital Signs Date Time Temp Pulse Resp B/P (MAP) Pulse Ox O2 Delivery O2 Flow Rate FiO2 10/03/17 04:00 97.4 75 18 94/49 (64) 94 10/03/17 00:00 97.7 89 17 95/52 (66) 94 10/02/17 23:52 88 10/02/17 23:10 Room Air 10/02/17 21:19 80 10/02/17 20:41 18 10/02/17 20:39 18 10/02/17 20:00 98.2 88 18 95/45 (62) 93 10/02/17 17:17 98.8 89 17 115/44 (67) 95 10/02/17 11:16 97.9 74 17 92/51 (65) 96 10/02/17 09:49 98.3 91 17 109/51 (70) 99 10/02/17 09:47 Room Air 10/02/17 09:00 73 I/O 10/02/17 10/02/17 10/02/17 10/03/17 10/03/17 10/03/17 07:00 15:00 23:00 07:00 15:00 23:00 Intake Total 410 ml 400 ml 240 ml Output Total 225 ml Balance 410 ml -225 ml 400 ml 240 ml Intake Oral 360 ml 400 ml 240 ml IV Total 50 ml Output Urine Total 225 ml # Voids 3 5 2 # Bowel Movements 0 0 Result Diagram: 10/03/17 0535 10/01/17 0600 Objective Remarks LLE: dressings clean and dry. intact. NVI. +CKS Assessment & Plan Assessment and Plan 1) Left Periprosthetic Femoral NEck Fx s/p hemiarthroplasty - POD 2 -WBAT -posterior hip precautions -CKS while in bed -CM for SNF placement -2 units PRBC -CM for DC planning -f/u with [facility] or [facility] in 2 weeks Festus Watkins/Junior Project Coordinator MICHAEL October 03, 2017 06:46
[2017-10-03] MEDS ORDERED: ACETAMINOPHEN 325 MG TAB PO PRN (07:00)
[2017-10-03] MEDS ORDERED: diphenhydrAMINE HCL 25 MG CAP PO PRN (07:00)
[2017-10-03] MEDS ORDERED: FUROSEMIDE 20 MG/2 ML VIAL IV PUSH ONE (07:00)
[2017-10-03] MEDS ORDERED: SODIUM CHLOR 0.9% 250 ML INJ 250 ML IV ONE (07:00)
[2017-10-03] MEDS: MUPIROCIN 2% CREAM 15 GM TOPICAL SCH ×2 (09:00→21:00)
[2017-10-03] MEDS: LACTIC ACID (AMMONIUM LACTATE) 12% LOTION 225 GM BTL TOPICAL SCH ×2 (09:00→21:02)
[2017-10-03] MEDS: DOCUSATE SODIUM 50 MG/SENNA 8.6 MG TAB PO SCH ×3 (09:00→21:00)
--- NOTE | 2017-10-03 09:04 | HHI.PR ---
Subjective Remarks Follow-up anemia. She feels weak denies dizziness, chest pain and shortness of breath. Agrees with blood transfusion discussed with nursing Objective Vitals Vital Signs Date Time Temp Pulse Resp B/P (MAP) Pulse Ox O2 Delivery O2 Flow Rate FiO2 10/03/17 07:57 98.4 76 18 92/54 (67) 95 10/03/17 04:00 97.4 75 18 94/49 (64) 94 10/03/17 00:00 97.7 89 17 95/52 (66) 94 10/02/17 23:52 88 10/02/17 23:10 Room Air 10/02/17 21:19 80 10/02/17 20:41 18 10/02/17 20:39 18 10/02/17 20:00 98.2 88 18 95/45 (62) 93 10/02/17 17:17 98.8 89 17 115/44 (67) 95 10/02/17 11:16 97.9 74 17 92/51 (65) 96 10/02/17 09:49 98.3 91 17 109/51 (70) 99 10/02/17 09:47 Room Air 10/02/17 09:00 73 I/O 10/02/17 10/02/17 10/02/17 10/03/17 10/03/17 10/03/17 07:00 15:00 23:00 07:00 15:00 23:00 Intake Total 410 ml 400 ml 240 ml Output Total 225 ml Balance 410 ml -225 ml 400 ml 240 ml Intake Oral 360 ml 400 ml 240 ml IV Total 50 ml Output Urine Total 225 ml # Voids 3 5 2 # Bowel Movements 0 0 Result Diagram: 10/03/17 0535 10/01/17 0600 Imaging Last Impressions Hip and Pelvis X-Ray 10/01/17 1056 Signed Impressions: Service Date/Time: Sunday, October 01, 2017 12:41 - CONCLUSION: New left hip hemiarthroplasty. Postoperative appearance is unremarkable. Russell Rowland MD Knee X-Ray 09/30/17 0000 Signed Impressions: Service Date/Time: Saturday, September 30, 2017 18:34 - CONCLUSION: 1. Advanced osteoarthritis at the left knee. Scottie Lentz MD Chest X-Ray 09/30/17 0000 Signed Impressions: Service Date/Time: Saturday, September 30, 2017 18:36 - CONCLUSION: 1. No active disease. Scottie Lentz MD Objective Remarks GENERAL: Well-appearing, no acute distress SKIN: Warm and dry. Pale HEAD: Normocephalic. EYES: No scleral icterus. No injection or drainage. NECK: Supple, trachea midline. No JVD or lymphadenopathy. CARDIOVASCULAR: Regular rate and rhythm without murmurs, gallops, or rubs. RESPIRATORY: Breath sounds equal bilaterally. No accessory muscle use. GASTROINTESTINAL: Abdomen soft, non-tender, nondistended. MUSCULOSKELETAL: left knee immobilizer Procedures left hip hemiarthroplasty A/P Problem List: (1) Fall ICD Code: W19.XXXA - Unspecified fall, initial encounter (2) Femur fracture, left ICD Code: S72.92XA - Unspecified fracture of left femur, initial encounter for closed fracture (3) Dementia ICD Code: F03.90 - Unspecified dementia without behavioral disturbance Assessment and Plan 82-year-old female with a medical or significant anxiety, depression, Parkinson' s disease, fibromyalgia, history of GI bleed on Xarelto, coronary artery disease , who presents to [facility] from [facility] after a fall. Found to have left femoral fracture. Left femoral fracture Patient has been seen and evaluated by Dr. Sandoval Patient had a hx GI bleed on Xarelto. Patient is status post left hip hemiarthroplasty PT recommends rehab Pain control with Lortab and morphine sulfate Postoperative anemia secondary to acute blood loss. Transfuse with 1 unit packed RBC to keep hemoglobin at least 8. Repeat hemoglobin 1 hour after transfusion and in the morning. Fibromyalgia Continue home pain meds Hypothyroidism Continue levothyroxine Was being treated for UTI as outpatient Unclear how many days of treatment she had received Abnormal urinalysis with significant epithelial cells. Urine culture pending Dementia cont sinemet DVT prophy lovenox GI proh protonix Discharge Planning Possible discharge later today or in the morning Aydin Clay MD October 03, 2017 09:04
--- NOTE | 2017-10-03 09:07 | HHI.DCPOC ---
Discharge Care Plan Diagnosis: (1) Postoperative anemia due to acute blood loss Your Health Problems Are: Difficulty with ADL Exercise Tolerance Goals to Promote Your Health * To prevent worsening of your condition and complications * To maintain your health at the optimal level Directions to Meet Your Goals Take your medications as prescribed Follow your dietary instruction Follow activity as directed Keep your appointments as scheduled Take your immunizations and boosters as scheduled If your symptoms worsen call your PCP, if no PCP go to Urgent Care Center or Emergency Room Smoking is Dangerous to Your Health. Avoid second hand smoke Call the 24-hour hour crisis hotline for domestic abuse at Aydin Clay MD October 03, 2017 09:07
[2017-10-03] MEDS: PANTOPRAZOLE SOD 20 MG DELAYED RELEASE TAB PO SCH (10:59)
[2017-10-03] MEDS: ENOXAPARIN SODIUM 30 MG/0.3 ML SYRINGE SQ SCH (10:59)
[2017-10-03] MEDS: PREGABALIN 100 MG CAP PO SCH ×2 (11:00→21:00)
[2017-10-03] MEDS: MULTIVITAMIN TAB PO SCH (11:00)
[2017-10-03] MEDS: SODIUM CHLORIDE 0.9% FLUSH 10 ML FLUSH IV FLUSH SCH ×2 (11:00→21:01)
[2017-10-03] MEDS: HYDROXYCHLOROQUINE SULFATE 200 MG TAB PO SCH (11:00)
[2017-10-03] MEDS: CHOLECALCIFEROL (VIT D3) 5000 UNIT CAP PO SCH (11:00)
[2017-10-03 20:37] LABS: HEMATOCRIT 25.9 % (35.0-46.0)
[2017-10-04 01:10] VITALS: BP 96/46; PULSE 74; RESP 17; TEMP 99.5; O2SAT 95
[2017-10-04 04:02] VITALS: PULSE 71
[2017-10-04 04:10] VITALS: BP 100/53; PULSE 74; RESP 17; TEMP 98.9; O2SAT 98
[2017-10-04] MEDS: CARBIDOPA/LEVODOPA 25 MG/100 MG TAB PO SCH ×2 (05:45→12:19)
[2017-10-04] MEDS: LEVOTHYROXINE SODIUM 150 MCG TAB PO SCH (05:45)
[2017-10-04 06:26] LABS: HEMATOCRIT 27.6 % (35.0-46.0); HEMOGLOBIN 9.5 GM/DL (11.6-15.3)
[2017-10-04 08:00] VITALS: BP 117/58; PULSE 78; RESP 18; TEMP 99; O2SAT 99
[2017-10-04] MEDS: DOCUSATE SODIUM 50 MG/SENNA 8.6 MG TAB PO SCH (09:00)
[2017-10-04] MEDS: LACTIC ACID (AMMONIUM LACTATE) 12% LOTION 225 GM BTL TOPICAL SCH (09:00)
[2017-10-04] MEDS: MUPIROCIN 2% CREAM 15 GM TOPICAL SCH (09:00)
--- NOTE | 2017-10-04 09:20 | HHI.PR ---
Subjective Remarks Follow-up anemia and UTI. Tolerated blood transfusion hemoglobin stable at 9. Urine culture with e coli Objective Vitals Vital Signs Date Time Temp Pulse Resp B/P (MAP) Pulse Ox O2 Delivery O2 Flow Rate FiO2 10/04/17 08:00 99.0 78 18 117/58 (77) 99 10/04/17 04:10 98.9 74 17 100/53 (69) 98 10/04/17 04:02 71 10/04/17 01:10 99.5 74 17 96/46 (63) 95 Manual Cuff/Auscultation 10/03/17 22:37 Room Air 10/03/17 20:10 99.8 83 17 98/56 (70) 94 Automatic Cuff 10/03/17 20:00 94 10/03/17 13:52 87/41 (56) 10/03/17 13:23 85/40 (55) 10/03/17 12:57 99.4 75 18 80/40 97 10/03/17 12:35 99.2 77 18 90/50 95 I/O 10/03/17 10/03/17 10/03/17 10/04/17 10/04/17 10/04/17 07:00 15:00 23:00 07:00 15:00 23:00 Intake Total 240 ml 400 ml 360 ml Balance 240 ml 400 ml 360 ml Intake Oral 240 ml 360 ml Packed Cells 400 ml # Voids 2 5 # Bowel Movements 0 Result Diagram: 10/04/17 0530 10/01/17 0600 Imaging Last Impressions Hip and Pelvis X-Ray 10/01/17 1056 Signed Impressions: Service Date/Time: Sunday, October 01, 2017 12:41 - CONCLUSION: New left hip hemiarthroplasty. Postoperative appearance is unremarkable. Russell Rowland MD Knee X-Ray 09/30/17 0000 Signed Impressions: Service Date/Time: Saturday, September 30, 2017 18:34 - CONCLUSION: 1. Advanced osteoarthritis at the left knee. Scottie Lentz MD Chest X-Ray 09/30/17 0000 Signed Impressions: Service Date/Time: Saturday, September 30, 2017 18:36 - CONCLUSION: 1. No active disease. Scottie Lentz MD Objective Remarks GENERAL: Well-appearing, no acute distress SKIN: Warm and dry. Pale HEAD: Normocephalic. EYES: No scleral icterus. No injection or drainage. NECK: Supple, trachea midline. No JVD or lymphadenopathy. CARDIOVASCULAR: Regular rate and rhythm without murmurs, gallops, or rubs. RESPIRATORY: Breath sounds equal bilaterally. No accessory muscle use. GASTROINTESTINAL: Abdomen soft, non-tender, nondistended. MUSCULOSKELETAL: left knee immobilizer Procedures left hip hemiarthroplasty A/P Problem List: (1) Fall ICD Code: W19.XXXA - Unspecified fall, initial encounter (2) Femur fracture, left ICD Code: S72.92XA - Unspecified fracture of left femur, initial encounter for closed fracture (3) Dementia ICD Code: F03.90 - Unspecified dementia without behavioral disturbance Assessment and Plan 82-year-old female with a medical or significant anxiety, depression, Parkinson' s disease, fibromyalgia, history of GI bleed on Xarelto, coronary artery disease , who presents to [place] ER from sniff after a fall. Found to have left femoral fracture. Left femoral fracture Patient has been seen and evaluated by Dr. Sandoval Patient had a hx GI bleed on Xarelto. Patient is status post left hip hemiarthroplasty PT recommends rehab Pain control with Lortab and morphine sulfate Postoperative anemia secondary to acute blood loss. Improved after packed RBC transfusion keep hemoglobin at least 8 Fibromyalgia Continue home pain meds Hypothyroidism Continue levothyroxine E coli UTI. Ceftin for 3 days Dementia cont sinemet DVT prophy lovenox GI proh protonix Discharge Planning Stable for discharge Aydin Clay MD October 04, 2017 09:20
[2017-10-04] MEDS ORDERED: NITROFURANTOIN MONOHYD MACROCR 100 MG CAP PO SCH (09:30)
[2017-10-04] MEDS ORDERED: CEFU1TAB18 PO (10:04)
[2017-10-04] MEDS: ENOXAPARIN SODIUM 30 MG/0.3 ML SYRINGE SQ SCH (10:23)
[2017-10-04] MEDS: HYDROXYCHLOROQUINE SULFATE 200 MG TAB PO SCH (10:24)
[2017-10-04] MEDS: PREGABALIN 100 MG CAP PO SCH (10:24)
[2017-10-04] MEDS: MULTIVITAMIN TAB PO SCH (10:24)
[2017-10-04] MEDS: CHOLECALCIFEROL (VIT D3) 5000 UNIT CAP PO SCH (10:24)
[2017-10-04] MEDS: PANTOPRAZOLE SOD 20 MG DELAYED RELEASE TAB PO SCH (10:24)
[2017-10-04] MEDS: SODIUM CHLORIDE 0.9% FLUSH 10 ML FLUSH IV FLUSH SCH (10:25)
[2017-10-04] MEDS ORDERED: CEFUROXIME AXETIL 250 MG TAB PO SCH (10:45)
[2017-10-04 12:00] VITALS: BP 119/67; PULSE 82; RESP 18; TEMP 98.5; O2SAT 92
--- NOTE | 2017-10-04 17:56 | HHI.DS ---
Discharge Summary Admission Date September 30, 2017 at 20:04 Discharge Date: October 04, 2017 Admitting Diagnosis Left hip fracture (1) Fall ICD Code: W19.XXXA - Unspecified fall, initial encounter Diagnosis: Principal (2) Femur fracture, left ICD Code: S72.92XA - Unspecified fracture of left femur, initial encounter for closed fracture Diagnosis: Principal (3) Dementia ICD Code: F03.90 - Unspecified dementia without behavioral disturbance Diagnosis: Principal Procedures left hip hemiarthroplasty Brief History - From Admission This is an 82-year-old female with a PMH of Anxiety, Depression, Parkinson's Disease, Dementia, Fibromyalgia, h/o GI Bleed and CAD who was sent to the ER from SNF after fall. Pt unable to provide any history due to dementia. Per records, pt had fall while transferring from wheelchair to recliner, +injury to left hip. No reported LOC or head trauma. On arrival, BP 120/58, HR 79, O2 sat 99% on RA, Afebrile. WBC 14.3. Chemistry pending. Hip X-ray with likely fracture of proximal left femur. Knee X-ray with advanced osteoarthritis, metallic staple overlying the distal femur. CXR with no focal consolidation or effusion. Ortho consulted by ER physician, plan is for surgical intervention in am. CBC/BMP: 10/04/17 0530 10/01/17 0600 Significant Findings Laboratory Tests Test 10/02/17 04:16 10/02/17 13:46 10/03/17 05:35 10/03/17 20:17 Hemoglobin 7.8 GM/DL (11.6-15.3) 7.1 GM/DL (11.6-15.3) 9.0 GM/DL (11.6-15.3) Hematocrit 22.4 % (35.0-46.0) 20.5 % (35.0-46.0) 25.9 % (35.0-46.0) Urine Turbidity CLOUDY (CLEAR) Urine Protein 30 mg/dL (NEG-TRACE) Urine Occult Blood MOD (NEG) Urine Leukocyte Esterase LARGE (NEG) Urine RBC 141 /hpf (0-3) Urine WBC Clumps MANY (NONE) Urine Bacteria MANY /hpf (NONE) Red Blood Count 2.11 MIL/MM3 (4.00-5.30) Monocytes (%) (Auto) 9.2 % (0.0-8.0) Test 10/04/17 05:30 Hemoglobin 9.5 GM/DL (11.6-15.3) Hematocrit 27.6 % (35.0-46.0) Imaging Last Impressions Hip and Pelvis X-Ray 10/01/17 1056 Signed Impressions: Service Date/Time: Sunday, October 01, 2017 12:41 - CONCLUSION: New left hip hemiarthroplasty. Postoperative appearance is unremarkable. Russell Rowland MD Knee X-Ray 09/30/17 0000 Signed Impressions: Service Date/Time: Saturday, September 30, 2017 18:34 - CONCLUSION: 1. Advanced osteoarthritis at the left knee. Scottie Lentz MD Chest X-Ray 09/30/17 0000 Signed Impressions: Service Date/Time: Saturday, September 30, 2017 18:36 - CONCLUSION: 1. No active disease. Scottie Lentz MD PE at Discharge GENERAL: Well-appearing, no acute distress SKIN: Warm and dry. Pale HEAD: Normocephalic. EYES: No scleral icterus. No injection or drainage. NECK: Supple, trachea midline. No JVD or lymphadenopathy. CARDIOVASCULAR: Regular rate and rhythm without murmurs, gallops, or rubs. RESPIRATORY: Breath sounds equal bilaterally. No accessory muscle use. GASTROINTESTINAL: Abdomen soft, non-tender, nondistended. MUSCULOSKELETAL: left knee immobilizer Hospital Course 82-year-old female with a medical or significant anxiety, depression, Parkinson' s disease, fibromyalgia, history of GI bleed on Xarelto, coronary artery disease , who presents to [place] ER from sniff after a fall. Found to have left femoral fracture. Left femoral fracture Patient has been seen and evaluated by Dr. Sandoval Patient had a hx GI bleed on Xarelto. Patient is status post left hip hemiarthroplasty PT recommends rehab Pain control with Lortab and morphine sulfate Postoperative anemia secondary to acute blood loss. Improved after packed RBC transfusion keep hemoglobin at least 8 Fibromyalgia Continue home pain meds Hypothyroidism Continue levothyroxine E coli UTI. Ceftin for 3 days Dementia cont sinemet DVT prophy lovenox GI proh protonix Pt Condition on Discharge: Stable Discharge Disposition: Discharge to SNF Discharge Time: > 30 minutes Discharge Instructions DIET: Follow Instructions for: As Tolerated, No Restrictions Activities you can perform: Regular-No Restrictions Activities to Avoid: Driving Other Activity Instructions: -WBAT -posterior hip precautions -CKS while in bed Follow up Referrals: Orthopedics - 2 Weeks @ [facility] with Porter Sandoval MD PCP Follow-up - 1 Week New Medications: Aspirin (Aspirin 81 Low Dose) 81 Mg Chew 81 MG CHEW BID for blood clot prevention, #60 TAB Hydrocodone-Acetaminophen (Hydrocodone-Acetaminophen) 7.5 Mg-325 Mg Tab 1 TAB PO Q4H PRN for PAIN, #60 TAB 0 Refills Cefuroxime (Ceftin) 250 Mg Tab 250 MG PO Q12HR for Infection, #5 TAB Continued Medications: Ascorbic Acid (Vitamin C) 250 Mg Chew 500 MG CHEW BID for Nutritional Supplement, #60 TAB 0 Refills Calcium Carbonate-Vitamin D (Calcium 600+D 200) 600-200 Mg-Unit Tab 1 TAB PO BID for Nutritional Supplement, #90 TAB 0 Refills Carbidopa-Levodopa (Sinemet) 25-100 Mg Tab 1 TAB PO Q6HR for Parkinson Disease Mgmt, #1 TAB 0 Refills Cholecalciferol (Vitamin D3) 1,000 Unit Tab 1000 UNITS PO DAILY for Nutritional Supplement, #1 BOTTLE 0 Refills Cholestyramine (Questran) 4 Gm/Dose Powd 4 GM PO TID for Dyslipidemia, #1 CAN 0 Refills 1 level scoopful of powder contains 4 grams of cholestyramine. Cranberry (Vaccinium Macrocarpon) (Cranberry) 400 Mg Cap 1 CAP PO BID Ferrous Sulfate (Ferrous Sulfate) 325 Mg (65 Mg Iron) Tablet 325 MG PO BIDPC for Nutritional Supplement, #60 TAB 0 Refills Hydroxychloroquine (Plaquenil) 200 Mg Tab 200 MG PO DAILY, #30 TAB 0 Refills Take with food Ipratropium-Albuterol Neb (Duoneb) 0.5-2.5 Mg/3 Ml Neb 1 NEBULE INH DAILY for Breathing Treatment, #30 NEBULE 0 Refills Levothyroxine (Levothyroxine) 150 Mcg Tab 150 MCG PO DAILY for Thyroid, #30 TAB 0 Refills Melatonin (Gnp Melatonin Maximum Str) 5 Mg Tab 5 MG PO HS PRN for insomnia, #30 TAB Multiple Vitamin (Multiple Vitamin) 1 Tab 1 TAB PO DAILY for Nutritional Supplement, #30 TAB Mupirocin Topical (Bactroban Topical) 22 Gm Cream 1 APPLIC TOPICAL BID for Mgmt Bacterial Infection for 30 Days, #1 TUBE 0 Refills Apply to stage 2 sacral ulcer with barrier dressing changes Omeprazole (Omeprazole) 20 Mg Tab 20 MG PO DAILY, #30 TAB 0 Refills Pregabalin (Lyrica) 100 Mg Cap 100 MG PO BID, #60 CAP Propylene Glycol-Glycerin Opth Drops (Artificial Tears Opth Drops) 1-0.3% Drops 1-2 DROP EACH EYE TID PRN for DRY EYE, #15 ML 0 Refills Sennosides-Docusate Sodium (Senna Plus 8.6-50 mg) 8.6 Mg-50 Mg Tab 1 TAB PO BID, #60 TAB Walker/Adult/Folding (Walker/Adult/Folding) 1 Mis Mis EA .ROUTE DIRECTED, #1 0 Refills Discontinued Medications: Hydrocodone-Acetaminophen (Hydrocodone-Acetaminophen) 10-325 mg Tab 1 TAB PO Q4H PRN for pain 4-10, #30 TAB Nitrofurantoin Monohydrate Macrocrystals (Nitrofurantoin Monohydrate Macrocrystals) 100 Mg Cap 100 MG PO BIDPC for Infection for 7 Days, CAP Aydin Clay MD October 04, 2017 17:56
== END 2017-10-04 15:51 | DRG 470 ==
LOC: NEPE 17:23 → NEDA 20:04 → N06A 21:10
PROVIDERS: ADMIT Internal Medicine; ATTEND Internal Medicine
PROC: 0QP704Z Removal of Internal Fixation Device from Left Upper Femur, Open Approach (ICD-10-PCS; 2017-10-01)
PROC: 0SRS0J9 Replacement of Left Hip Joint, Femoral Surface with Synthetic Substitute, Cemented, Open Approach (ICD-10-PCS; principal; 2017-10-01 09:25)
DX: S72.002A Fracture of unspecified part of neck of left femur, initial encounter for closed fracture (principal); K92.2 Gastrointestinal hemorrhage, unspecified; G20 Parkinson's disease; N39.0 Urinary tract infection, site not specified; D62 Acute posthemorrhagic anemia; M35.00 Sjogren syndrome, unspecified; B96.20 Unspecified Escherichia coli [E. coli] as the cause of diseases classified elsewhere; E03.9 Hypothyroidism, unspecified; E78.00 Pure hypercholesterolemia, unspecified; F02.80 Dementia in other diseases classified elsewhere, unspecified severity, without behavioral disturbance, psychotic disturbance, mood disturbance, and anxiety; F41.9 Anxiety disorder, unspecified; F32.9 Major depressive disorder, single episode, unspecified; I25.10 Atherosclerotic heart disease of native coronary artery without angina pectoris; K21.9 Gastro-esophageal reflux disease without esophagitis; M25.562 Pain in left knee; E55.9 Vitamin D deficiency, unspecified; M79.7 Fibromyalgia; W05.0XXA Fall from non-moving wheelchair, initial encounter; Z66 Do not resuscitate; Z98.890 Other specified postprocedural states; Z98.1 Arthrodesis status; Z90.49 Acquired absence of other specified parts of digestive tract; Z88.8 Allergy status to other drugs, medicaments and biological substances
CPT/HCPCS: 36430; 71045; 73502; 73560; 76937; 80048; 80053; 81001; 85014; 85018; 85025; 85610; 85730; 86077; 86850; 86870; 86900; 86901; 86902; 86920; 86922; 87077; 87086; 87186; 88305; 88311; 93005; 99285; C1776; J0690; J1100; J1580; J1650; J2270; J2370; J2405; J2710; J3010; J3370; J7030; L1830; P9016

== ENCOUNTER 2017-10-15 15:31 | Inpatient (IN) | payer MEDICARE ==
[~2017-10-15] VITALS: Ht 170.2 cm; Wt 58.0 kg
[~2017-10-15 15:31] MED LIST changes: +ASPI1CHW4 CHEW; +CEFU1TAB18 PO; +HYDR-3580 PO; -HYDR-3583 PO; -NITR100C4 PO
[2017-10-15 15:34] VITALS: BP 114/52; PULSE 102; RESP 16; TEMP 101.7
[2017-10-15] MEDS ORDERED: SODIUM CHLORID 0.9% 500 ML INJ 500 ML IV ONE (16:00)
--- NOTE | 2017-10-15 16:24 | PD ---
HPI Chief Complaint: Altered Mental Status Time Seen by Provider: 15:46 Travel History International Travel<30 days: No Contact w/Intl Traveler<30days: No Traveled to known affect area: No History of Present Illness HPI pt is an 82 y.o female with a freq hx of UTI who is a resident of a [facility]. Hx is obtained by the nursing staff and not the pt secondary to clinical presentation. Per [facility] staff, pt has a baseline of A&O X2. This morning she was found to be A&O X 1. she seemed more weak than normal. She had a fever of 101. was given 650 mg Tylenol. Her fever then spiked to 103. It has also been reported that pt recently had a L hip arthroplasty. Yesterday yellow purulent discharged was seen from the wound and was later drained and cleaned with NS, however I did not see any drainage from the wound today. Modifying Factors: None Associated Signs & Symptoms: Fevers, altered mental status Risk Factors: Recent left hip replacement, UTI History Past Medical History Menopausal: Yes Social History Alcohol Use: No Tobacco Use: No Allergies-Medications (Allergen,Severity, Reaction): Coded Allergies: No Known Allergies (Verified Allergy, Unknown, 10/15/17) Reported Meds & Prescriptions Reported Meds & Active Scripts Active Ceftin (Cefuroxime Axetil) 250 Mg Tab 250 Mg PO Q12HR Aspirin 81 Low Dose (Aspirin) 81 Mg Chew 81 Mg CHEW BID Hydrocodone-Acetaminophen 7.5 Mg-325 Mg Tab 1 Tab PO Q4H PRN Gnp Melatonin Maximum Str (Melatonin) 5 Mg Tab 5 Mg PO HS PRN Senna Plus 8.6-50 mg (Sennosides-Docusate Sodium) 8.6 Mg-50 Mg Tab 1 Tab PO BID Lyrica (Pregabalin) 100 Mg Cap 100 Mg PO BID Artificial Tears Opth Drops (Propylene Glycol-Glycerin Opth Drops) 1-0.3% Drops 1-2 Drop EACH EYE TID PRN Vitamin D3 (Cholecalciferol) 1,000 Unit Tab 1,000 Units PO DAILY Levothyroxine (Levothyroxine Sodium) 150 Mcg Tab 150 Mcg PO DAILY Omeprazole 20 Mg Tab 20 Mg PO DAILY Plaquenil (Hydroxychloroquine Sulfate) 200 Mg Tab 200 Mg PO DAILY Take with food Multiple Vitamin 1 Tab 1 Tab PO DAILY Reported Sinemet (Carbidopa-Levodopa) 25-100 Mg Tab 1 Tab PO Q6HR Questran (Cholestyramine) 4 Gm/Dose Powd 4 Gm PO TID 1 level scoopful of powder contains 4 grams of cholestyramine. Vitamin C (Ascorbic Acid) 250 Mg Chew 500 Mg CHEW BID Ferrous Sulfate 325 Mg (65 Mg Iron) Tablet 325 Mg PO BIDPC Duoneb (Ipratropium-Albuterol Neb) 0.5-2.5 Mg/3 Ml Neb 1 Nebule INH DAILY Cranberry (Cranberry (Vaccinium Macrocarpon)) 400 Mg Cap 1 Cap PO BID Review of Systems ROS Limitations: Clinical Condition, Altered Mental Status, Unresponsive Physical Exam Narrative GENERAL: Well-developed elderly female patient currently and moderate distress, lethargic. SKIN: very warm and dry. HEAD: Atraumatic. Normocephalic. EYES: Pupils equal and round. No scleral icterus. No injection or drainage. ENT: No nasal bleeding or discharge. Mucous membranes seem dry NECK: Trachea midline. No JVD. CARDIOVASCULAR: Regular rate and rhythm. RESPIRATORY: No accessory muscle use. Clear to auscultation. Breath sounds equal bilaterally. GASTROINTESTINAL: Abdomen soft, non-tender, nondistended. Hepatic and splenic margins not palpable. MUSCULOSKELETAL: No cyanosis, or edema noted. peripheral pulses intact. there is a 15 cm surgical wound secondary to recent hip arthroplasty on L hip. area is mildly tender, looks clean, no significant drainage currently. NEUROLOGICAL: Alert and oriented X1 . No obvious cranial nerve deficits. Motor grossly within normal limits. Data Data Last Documented VS Vital Signs Date Time Temp Pulse Resp B/P (MAP) Pulse Ox O2 Delivery O2 Flow Rate FiO2 10/15/17 17:00 83 16 90/51 (64) 98 Room Air 10/15/17 15:34 101.7 Orders Orders Sepsis Workup Initiated (10/15/17 ) Complete Blood Count With Diff (10/15/17 15:43) Comprehensive Metabolic Panel (10/15/17 15:43) Lactic Acid Sepsis Protocol (10/15/17 15:43) Urinalysis - C+S If Indicated (10/15/17 15:43) Blood Culture (10/15/17 15:43) Chest, Single Ap (10/15/17 15:43) Blood Glucose (10/15/17 15:43) Ecg Monitoring (10/15/17 15:43) Iv Access Insert/Monitor (10/15/17 15:43) Oximetry (10/15/17 15:43) Oxygen Administration (10/15/17 15:43) Hip, Uni(Ap&Lat) W Ap Pelvis (10/15/17 15:43) Sodium Chlorid 0.9% 500 Ml Inj (Ns 500 M (10/15/17 16:00) Urine Culture (10/15/17 15:45) Admit Order (Ed Use Only) (10/15/17 17:15) Labs Laboratory Tests Test 10/15/17 15:45 White Blood Count 10.8 TH/MM3 Red Blood Count 2.55 MIL/MM3 Hemoglobin 8.3 GM/DL Hematocrit 24.7 % Mean Corpuscular Volume 96.8 FL Mean Corpuscular Hemoglobin 32.7 PG Mean Corpuscular Hemoglobin Concent 33.8 % Red Cell Distribution Width 15.6 % Platelet Count 241 TH/MM3 Mean Platelet Volume 7.8 FL Neutrophils (%) (Auto) 89.3 % Lymphocytes (%) (Auto) 3.8 % Monocytes (%) (Auto) 6.8 % Eosinophils (%) (Auto) 0.0 % Basophils (%) (Auto) 0.1 % Neutrophils # (Auto) 9.6 TH/MM3 Lymphocytes # (Auto) 0.4 TH/MM3 Monocytes # (Auto) 0.7 TH/MM3 Eosinophils # (Auto) 0.0 TH/MM3 Basophils # (Auto) 0.0 TH/MM3 CBC Comment DIFF FINAL Differential Comment Urine Color YELLOW Urine Turbidity HAZY Urine pH 6.5 Urine Specific [place] 1.019 Urine Protein 30 mg/dL Urine Glucose (UA) NEG mg/dL Urine Ketones NEG mg/dL Urine Occult Blood SMALL Urine Nitrite POS Urine Bilirubin NEG Urine Urobilinogen LESS THAN 2.0 MG/DL Urine Leukocyte Esterase LARGE Urine WBC 15 /hpf Urine Squamous Epithelial Cells > 8 /hpf Urine Bacteria MANY /hpf Microscopic Urinalysis Comment CATH-CULTURE IND Blood Urea Nitrogen 23 MG/DL Creatinine 1.19 MG/DL Random Glucose 96 MG/DL Total Protein 6.4 GM/DL Albumin 2.6 GM/DL Calcium Level 7.6 MG/DL Alkaline Phosphatase 79 U/L Aspartate Amino Transf (AST/SGOT) 31 U/L Alanine Aminotransferase (ALT/SGPT) 10 U/L Total Bilirubin 0.7 MG/DL Sodium Level 139 MEQ/L Potassium Level 4.4 MEQ/L Chloride Level 106 MEQ/L Carbon Dioxide Level 27.2 MEQ/L Anion Gap 6 MEQ/L Estimat Glomerular Filtration Rate 44 ML/MIN Lactic Acid Level 1.3 mmol/L MDM Medical Decision Making Medical Screen Exam Complete: Yes Emergency Medical Condition: Yes Medical Record Reviewed: Yes Interpretation(s) Laboratory Tests Test 10/15/17 15:45 Red Blood Count 2.55 MIL/MM3 (4.00-5.30) Hemoglobin 8.3 GM/DL (11.6-15.3) Hematocrit 24.7 % (35.0-46.0) Neutrophils (%) (Auto) 89.3 % (16.0-70.0) Lymphocytes (%) (Auto) 3.8 % (9.0-44.0) Neutrophils # (Auto) 9.6 TH/MM3 (1.8-7.7) Lymphocytes # (Auto) 0.4 TH/MM3 (1.0-4.8) Urine Turbidity HAZY (CLEAR) Urine Protein 30 mg/dL (NEG-TRACE) Urine Occult Blood SMALL (NEG) Urine Nitrite POS (NEG) Urine Leukocyte Esterase LARGE (NEG) Urine WBC 15 /hpf (0-5) Urine Squamous Epithelial Cells > 8 /hpf (0-5) Urine Bacteria MANY /hpf (NONE) Blood Urea Nitrogen 23 MG/DL (7-18) Creatinine 1.19 MG/DL (0.50-1.00) Albumin 2.6 GM/DL (3.4-5.0) Calcium Level 7.6 MG/DL (8.5-10.1) Estimat Glomerular Filtration Rate 44 ML/MIN (>89) Last 24 hours Impressions Hip and Pelvis X-Ray 10/15/17 638 Signed Impressions: Service Date/Time: Sunday, October 15, 2017 16:04 - CONCLUSION: 1. Stable left hip arthroplasty without acute fracture or significant radiographic change. Jason Stover MD Chest X-Ray 10/15/17 5340 Signed Impressions: Service Date/Time: Sunday, October 15, 2017 16:12 - CONCLUSION: 1. No acute cardiopulmonary disease. Jason Stover MD Differential Diagnosis Wound infection versus UTI versus sepsis versus dehydration versus electrolyte abnormalities Narrative Course Lab work shows UTI, she is febrile, and IV antibiotics were initiated after cultures are drawn. The wound looks clean currently although there is [facility] history of there was discharged there yesterday, and at this point it is quite possible that she could have a wound infection as well. I do suspect sepsis and at this point, case was discussed with Dr. De La O for admission. Diagnosis Primary Impression: UTI (urinary tract infection) Additional Impressions: Sepsis Wound cellulitis after surgery Admitting Information Admitting Physician Requests: Admit Jennifer Ballard MD October 15, 2017 16:24
[2017-10-15 16:28] LABS: AUTOMATED NEUTROPHIL # 9.6 TH/MM3 (1.8-7.7); BASOPHIL % 0.1 % (0.0-2.0); HEMATOCRIT 24.7 % (35.0-46.0); HEMOGLOBIN 8.3 GM/DL (11.6-15.3); LYMPH % 3.8 % (9.0-44.0); LYMPHOCYTE # 0.4 TH/MM3 (1.0-4.8); MEAN CELL VOLUME 96.8 FL (80.0-100.0); MEAN CORPUSCULAR HEMOGLOBIN 32.7 PG (27.0-34.0); MEAN CORPUSCULAR HGB CONC 33.8 % (32.0-36.0); MEAN PLATELET VOLUME 7.8 FL (7.0-11.0); MONO % 6.8 % (0.0-8.0); MONOCYTE # 0.7 TH/MM3 (0-0.9); NEUT % 89.3 % (16.0-70.0); PLATELET COUNT 241 TH/MM3 (150-450); RED BLOOD COUNT 2.55 MIL/MM3 (4.00-5.30); RED CELL DISTRIBUTION WIDTH 15.6 % (11.6-17.2); WHITE BLOOD COUNT 10.8 TH/MM3 (4.0-11.0)
--- NOTE | 2017-10-15 16:28 | RADRPT ---
EXAM DATE/TIME: 10/15/2017 16:12 [facility] COMPARISON: CHEST SINGLE AP, September 30, 2017, 18:36. INDICATIONS : Fever. MEDICAL HISTORY : Parkinson's. Hypercholesterolemia. Gastroesophageal reflux disease.Thyroid disease. Dementia. Mitral valve prolapse. Coronary artery disease.Hyperlipidemia. Ulcer. Colorectal cancer. Fibromyalgia. Arthr itis.Osteoporosis. SURGICAL HISTORY : Tonsillectomy. section. Cholecystectomy. Bilateral cataractsurgery. Colon resection. Right k nee replacement. Back surgery. Total left hip. ENCOUNTER: Initial ACUITY: 1 day PAIN SCORE: Non-responsive. LOCATION: Bilateral chest FINDINGS: No new focal pleural or parenchymal opacities. Cardiomediastinal contours are within normal limits. B gallo thorax is intact. CONCLUSION: 1. No acute cardiopulmonary disease. Jason Stover MD on October 15, 2017 at 16:25 Board Certified Radiologist. This report was verified electronically.
--- NOTE | 2017-10-15 16:30 | RADRPT ---
EXAM DATE/TIME: 10/15/2017 16:04 [facility] COMPARISON: HIP LEFT (AP&LAT 2/3VWS) W AP PELVIS, October 01, 2017, 12:41. INDICATIONS : Left hip pain. MEDICAL HISTORY : Parkinson's. Hypercholesterolemia. Gastroesophageal reflux disease.Thyroid disease. Dementia. Mitral valve prolapse. Coronary artery disease.Hyperlipidemia. Ulcer. Colorectal cancer. Fibromyalgia. Arthr itis.Osteoporosis. SURGICAL HISTORY : Tonsillectomy. section. Cholecystectomy. Bilateral cataract surgery. Colon resection. Right knee replacement. Back surgery. Total left hip. ENCOUNTER: Initial ACUITY: 1 day PAIN SCORE: Non-responsive. LOCATION: Left hip. FINDINGS: Stable left hip arthroplasty. Osseous structures appear intact without acute fracture. There is near- anatomic alignment. Redemonstration of fixation hardware in the lower lumbar spine. Evolving postsurg ical soft tissue edema in the left hip with surgical staple line in place. CONCLUSION: 1. Stable left hip arthroplasty without acute fracture or significant radiographic change. Jason Stover MD on October 15, 2017 at 16:27 Board Certified Radiologist. This report was verified electronically.
[2017-10-15 16:39] LABS: BILIRUBIN, URINE NEG (NEG); BLOOD, URINE SMALL (NEG); GLUCOSE,URINE NEG (NEG); KETONE, URINE NEG (NEG); NITRITE,URINE POS (NEG); PH, URINE 6.5 (5.0-8.5); URINE COLOR YELLOW (YELLW/STRAW); URINE LEUKOCYTE ESTERASE LARGE (NEG)
[2017-10-15 16:46] LABS: ALBUMIN 2.6 GM/DL (3.4-5.0); ALT (GPT) 10 U/L (10-53); AST (GOT) 31 U/L (15-37); BICARBONATE 27.2 MEQ/L (21.0-32.0); BLOOD UREA NITROGEN 23 MG/DL (7-18); CALCIUM 7.6 MG/DL (8.5-10.1); CHLORIDE 106 MEQ/L (98-107); CREATININE 1.19 MG/DL (0.50-1.00); GLOMERULAR FILTRATION RATE 44 ML/MIN (>89); GLUCOSE,RANDOM 96 MG/DL (74-106); SODIUM (NA) 139 MEQ/L (136-145)
[2017-10-15 16:49] LABS: ALKALINE PHOSPHATASE 79 U/L (45-117); TOTAL BILIRUBIN ADULT 0.7 MG/DL (0.2-1.0); TOTAL PROTEIN 6.4 GM/DL (6.4-8.2)
[2017-10-15 16:53] LABS: SQUAMOUS EPITHELIAL CELL URINE > 8 /hpf (0-5)
[2017-10-15 16:54] LABS: BACTERIA, URINE MANY /hpf
[2017-10-15 16:58] VITALS: O2SAT 96
[2017-10-15 17:00] VITALS: BP 90/51; PULSE 83; RESP 16; O2SAT 98
--- NOTE | 2017-10-15 17:26 | HHI.HP ---
HPI Service [facility] Hospitalists Primary Care Physician Jonathon Euceda MD Admission Diagnosis uti/sepsis Diagnoses: Chief Complaint: Altered mental status Travel History International Travel<30 Days: No Contact w/Intl Traveler <30 Da: No Traveled to Known Affected Are: No History of Present Illness Is an 82-year-old female with history of UTI and a recent left femoral neck fracture status post left hip hemiarthroplasty who presents to [facility]. Due to patient's mental status the history is obtained from the chart and ED documentation. As per ED documentation senior living staff states that patient has a baseline of awake and alert oriented 2. The patient was confused this morning and orally oriented to 1. The patient also seem more weak than normal. Patient had a fever with a T-max of 101 and was given some Tylenol after which her fever spike to 103. As per ED documentation there was also reports of purulent discharge seen from the wound that was later drained and cleaned with normal saline. The patient's daughter is at bedside, states that the patient's mom is actually not that altered. The patient herself denies any chest pain, shortness of breath, complaints of pain in hands and feet and left hip, denies nausea, vomiting or abdominal pain. The patient also denies diarrhea. Review of Systems As per HPI, other systems reviewed by me and negative. Past Family Social History Past Medical History 1. Anxiety. 2. Depression. 3. Parkinson's disease. 4. Dementia. 5. Fibromyalgia. 6. History of GI bleed. 7. CAD. Past Surgical History 1. Cholecystectomy. 2. Colon resection for 2. . 4. Bilateral cataract surgery. 5. Lumbar fusion. 6. Right knee surgery. Reported Medications Reported Meds & Active Scripts Active Ceftin (Cefuroxime Axetil) 250 Mg Tab 250 Mg PO Q12HR Aspirin 81 Low Dose (Aspirin) 81 Mg Chew 81 Mg CHEW BID Hydrocodone-Acetaminophen 7.5 Mg-325 Mg Tab 1 Tab PO Q4H PRN Gnp Melatonin Maximum Str (Melatonin) 5 Mg Tab 5 Mg PO HS PRN Senna Plus 8.6-50 mg (Sennosides-Docusate Sodium) 8.6 Mg-50 Mg Tab 1 Tab PO BID Lyrica (Pregabalin) 100 Mg Cap 100 Mg PO BID Artificial Tears Opth Drops (Propylene Glycol-Glycerin Opth Drops) 1-0.3% Drops 1-2 Drop EACH EYE TID PRN Vitamin D3 (Cholecalciferol) 1,000 Unit Tab 1,000 Units PO DAILY Levothyroxine (Levothyroxine Sodium) 150 Mcg Tab 150 Mcg PO DAILY Omeprazole 20 Mg Tab 20 Mg PO DAILY Plaquenil (Hydroxychloroquine Sulfate) 200 Mg Tab 200 Mg PO DAILY Take with food Multiple Vitamin 1 Tab 1 Tab PO DAILY Reported Sinemet (Carbidopa-Levodopa) 25-100 Mg Tab 1 Tab PO Q6HR Questran (Cholestyramine) 4 Gm/Dose Powd 4 Gm PO TID 1 level scoopful of powder contains 4 grams of cholestyramine. Vitamin C (Ascorbic Acid) 250 Mg Chew 500 Mg CHEW BID Ferrous Sulfate 325 Mg (65 Mg Iron) Tablet 325 Mg PO BIDPC Duoneb (Ipratropium-Albuterol Neb) 0.5-2.5 Mg/3 Ml Neb 1 Nebule INH DAILY Cranberry (Cranberry (Vaccinium Macrocarpon)) 400 Mg Cap 1 Cap PO BID Allergies: Coded Allergies: No Known Allergies (Verified Allergy, Unknown, 10/15/17) Family History Reviewed. No history of DM or CAD. Social History Negative for alcohol, tobacco or drugs. Physical Exam Vital Signs Vital Signs Date Time Temp Pulse Resp B/P (MAP) Pulse Ox O2 Delivery O2 Flow Rate FiO2 10/15/17 17:00 83 16 90/51 (64) 98 Room Air 10/15/17 16:58 Room Air 10/15/17 16:58 96 Room Air 10/15/17 15:39 Room Air 10/15/17 15:34 101.7 102 16 114/52 (72) Physical Exam GENERAL: Very thin, fragile. nad SKIN: No rashes, multiple bruises in lower extremities. Incision on left hip is warm to touch with some erythema surrounding the incision. No drainage observed. HEAD: Atraumatic. Normocephalic. No temporal or scalp tenderness. EYES: Pupils equal round and reactive. Extraocular motions intact. No scleral icterus. No injection or drainage. ENT: Nose without bleeding, purulent drainage or septal hematoma. Throat without erythema, tonsillar hypertrophy or exudate. Uvula midline. Airway patent. NECK: Trachea midline. No JVD or lymphadenopathy. Supple, nontender, no meningeal signs. CARDIOVASCULAR: Regular rate and rhythm without murmurs, gallops, or rubs. RESPIRATORY: Clear to auscultation. Breath sounds equal bilaterally. No wheezes , rales, or rhonchi. GASTROINTESTINAL: Abdomen soft, non-tender, nondistended. No hepato-splenomegaly , or palpable masses. No guarding. MUSCULOSKELETAL: Extremities without clubbing, cyanosis, or edema. No joint tenderness, effusion, or edema noted. No calf tenderness. Negative Homans sign bilaterally. NEUROLOGICAL: Awake and alert. Cranial nerves II through XII intact. Motor and sensory grossly within normal limits. Five out of 5 muscle strength in all muscle groups. Normal speech. Laboratory Laboratory Tests Test 10/15/17 15:45 White Blood Count 10.8 Red Blood Count 2.55 Hemoglobin 8.3 Hematocrit 24.7 Mean Corpuscular Volume 96.8 Mean Corpuscular Hemoglobin 32.7 Mean Corpuscular Hemoglobin Concent 33.8 Red Cell Distribution Width 15.6 Platelet Count 241 Mean Platelet Volume 7.8 Neutrophils (%) (Auto) 89.3 Lymphocytes (%) (Auto) 3.8 Monocytes (%) (Auto) 6.8 Eosinophils (%) (Auto) 0.0 Basophils (%) (Auto) 0.1 Neutrophils # (Auto) 9.6 Lymphocytes # (Auto) 0.4 Monocytes # (Auto) 0.7 Eosinophils # (Auto) 0.0 Basophils # (Auto) 0.0 CBC Comment DIFF FINAL Differential Comment Urine Color YELLOW Urine Turbidity HAZY Urine pH 6.5 Urine Specific [place] 1.019 Urine Protein 30 Urine Glucose (UA) NEG Urine Ketones NEG Urine Occult Blood SMALL Urine Nitrite POS Urine Bilirubin NEG Urine Urobilinogen LESS THAN 2.0 Urine Leukocyte Esterase LARGE Urine WBC 15 Urine Squamous Epithelial Cells > 8 Urine Bacteria MANY Microscopic Urinalysis Comment CATH-CULTURE IND Blood Urea Nitrogen 23 Creatinine 1.19 Random Glucose 96 Total Protein 6.4 Albumin 2.6 Calcium Level 7.6 Alkaline Phosphatase 79 Aspartate Amino Transf (AST/SGOT) 31 Alanine Aminotransferase (ALT/SGPT) 10 Total Bilirubin 0.7 Sodium Level 139 Potassium Level 4.4 Chloride Level 106 Carbon Dioxide Level 27.2 Anion Gap 6 Estimat Glomerular Filtration Rate 44 Lactic Acid Level 1.3 Date/Time Source Procedure Growth Status 10/15/17 16:00 Blood Peripheral Aerobic Blood Culture Pending Received 10/15/17 16:00 Blood Peripheral Anaerobic Blood Culture Pending Received 10/15/17 15:45 Urine Catheterized Urine Urine Culture Pending Received Result Diagram: 10/15/17 1545 10/15/17 1545 Imaging Last Impressions Hip and Pelvis X-Ray 10/15/17 1543 Signed Impressions: Service Date/Time: Sunday, October 15, 2017 16:04 - CONCLUSION: 1. Stable left hip arthroplasty without acute fracture or significant radiographic change. Jason Stover MD Chest X-Ray 10/15/17 1543 Signed Impressions: Service Date/Time: Sunday, October 15, 2017 16:12 - CONCLUSION: 1. No acute cardiopulmonary disease. MD Christine Hughes VTE Risk Assessment Caprini VTE Risk Assessment: Mod/High Risk (score >= 2) Caprini Risk Assessment Model Point Value = 1 Point Value = 2 Point Value = 3 Point Value = 5 Age 41-60 Minor surgery BMI > 25 kg/m2 Swollen legs Varicose veins or History of unexplained or recurrent spontaneous Oral contraceptives or hormone replacement Sepsis (< 1 month) Serious lung disease, including pneumonia (< 1 month) Abnormal pulmonary function Acute myocardial infarction Congestive heart failure (< 1 month) History of inflammatory bowel disease Medical patient at bed rest Age 61-74 Arthroscopic surgery Major open surgery (> 45 min) Laparoscopic surgery (> 45 min) Malignancy Confined to bed (> 72 hours) Immobilizing plaster cast Central venous access Age >= 75 History of VTE Family history of VTE Factor V Leiden Prothrombin [id number] Lupus anticoagulant Anticardiolipin antibodies Elevated serum homocysteine Heparin-induced thrombocytopenia Other congenital or acquired thrombophilia Stroke (< 1 month) Elective arthroplasty Hip, pelvis, or leg fracture Acute spinal cord injury (< 1 month) Prophylaxis Regimen Total Risk Factor Score Risk Level Prophylaxis Regimen 0-1 Low Early ambulation 2 Moderate Order ONE of the following: *Sequential Compression Device (SCD) *Heparin 5000 units SQ BID 3-4 Higher Order ONE of the following medications: *Heparin 5000 units SQ TID *Enoxaparin/Lovenox 40 mg SQ daily (WT < 150 kg, CrCl > 30 mL/min) *Enoxaparin/Lovenox 30 mg SQ daily (WT < 150 kg, CrCl > 10-29 mL/min) *Enoxaparin/Lovenox 30 mg SQ BID (WT < 150 kg, CrCl > 30 mL/min) AND/OR *Sequential Compression Device (SCD) 5 or more Highest Order ONE of the following medications: *Heparin 5000 units SQ TID (Preferred with Epidurals) *Enoxaparin/Lovenox 40 mg SQ daily (WT < 150 kg, CrCl > 30 mL/min) *Enoxaparin/Lovenox 30 mg SQ daily (WT < 150 kg, CrCl > 10-29 mL/min) *Enoxaparin/Lovenox 30 mg SQ BID (WT < 150 kg, CrCl > 30 mL/min) AND *Sequential Compression Device (SCD) Assessment and Plan Problem List: (1) Sepsis ICD Code: A41.9 - Sepsis, unspecified organism Plan: Sepsis present on admission (fever and tachycardia). Likely secondary to UTI. Will start on IV vancomycin and IV Zosyn. Will give vancomycin to cover for MRSA infection of possibly suspected left hip infection. Lactic acid normal range Continue to monitor vital signs Follow-up blood and urine cultures obtained in the emergency department. Consult orthopedic surgery -Dr. Sandoval since I cannot rule out the patient has a left prosthetic hip infection and there is reported purulent drainage obtained from the wound. Consider ID consultation Consult palliative care consultation (2) UTI (urinary tract infection) ICD Code: N39.0 - Urinary tract infection, site not specified Plan: Patient was discharged recently to [facility] facility. On previous admission the patient had a urinary tract infection which urine culture grew E. coli. The patient discharged with oral cefuroxime. UA abnormal on this admission with positive nitrites, large leukocyte esterase, increased WBC. Follow-up urine culture. (3) Anemia ICD Code: D64.9 - Anemia, unspecified Status: Chronic Plan: Suspect iron deficiency anemia. Continue oral iron. Monitor hemoglobin. I will check stool guaiac. Check iron studies. (4) CKD (chronic kidney disease), stage III ICD Code: N18.3 - Chronic kidney disease, stage 3 (moderate) Plan: Upon review of records, the patient has a baseline creatinine of 1.1- 1.2. Patient currently at baseline. Continue to monitor BUN and creatinine, strict I's and O's, avoid nephrotoxins. (5) Hypothyroidism ICD Code: E03.9 - Hypothyroidism, unspecified Plan: Check TSH, continue levothyroxine. (6) Dementia ICD Code: F03.90 - Unspecified dementia without behavioral disturbance Status: Chronic Plan: Continue carbidopa levodopa. (7) Encephalopathy acute ICD Code: G93.40 - Encephalopathy, unspecified Status: Acute Plan: Likely metabolic secondary to sepsis secondary to UTI. Rule out left hip infection. Continue to monitor neurological status Assessment and Plan DVT prophylaxis: SCDs. No chemoprophylaxis given previous history of GI bleed and current anemia. Sustained a long conversation with the patient's daughter who states that would like to talk to palliative care. Discussed Condition With ED physician, RN, patient's daughter. Physician Certification 2 Midnight Certification Type: Admission for Inpatient Services Order for Inpatient Services The services are ordered in accordance with Medicare regulations or non- Medicare payer requirements, as applicable. In the case of services not specified as inpatient-only, they are appropriately provided as inpatient services in accordance with the 2-midnight benchmark. Estimated LOS (days): 2 days is the estimated time the patient will need to remain in the hospital, assuming treatment plan goals are met and no additional complications. Post-Hospital Plan: SNF Problem Qualifiers (1) Sepsis: Qualified Codes: A41.9 - Sepsis, unspecified organism (2) Anemia: (3) Hypothyroidism: Qualified Codes: E03.9 - Hypothyroidism, unspecified (4) Dementia: Qualified Codes: G20 - Parkinson's disease; F02.80 - Dementia in other diseases classified elsewhere without behavioral disturbance Tommie Mckeon MD October 15, 2017 17:26
[2017-10-15] MEDS ORDERED: NALOXONE HCL 0.4 MG/ML AMP IV PUSH PRN (17:30)
[2017-10-15] MEDS ORDERED: BISACODYL 10 MG SUPP RECTAL PRN (17:30)
[2017-10-15] MEDS ORDERED: SENNOSIDES 8.6 MG TAB PO PRN (17:30)
[2017-10-15] MEDS ORDERED: MAGNESIUM HYDROXIDE SUSP 30 ML CUP PO PRN (17:30)
[2017-10-15] MEDS ORDERED: ACETAMINOPHEN 325 MG TAB PO PRN (17:30)
[2017-10-15] MEDS ORDERED: LACTULOSE SYRUP 20 GM/30 ML CUP PO PRN (17:30)
[2017-10-15] MEDS ORDERED: SODIUM CHLORIDE 0.9% FLUSH 10 ML FLUSH IV FLUSH PRN (17:30)
[2017-10-15] MEDS ORDERED: PIPERACIL-TAZO 2.25 GM PREMIX 50 ML IV SCH (18:00)
[2017-10-15] MEDS ORDERED: VANCOMYCIN INJ 1,000 MG in SODIUM CHLOR 0.9% 250 ML INJ 250 ML IV ONE (18:15)
[2017-10-15] MEDS ORDERED: Vancomycin Consult Pharmacy 1 EA OTHER SCH (18:15)
[2017-10-15 18:22] VITALS: BP 95/48; PULSE 86; RESP 19; TEMP 99.1; O2SAT 93
[2017-10-15] MEDS: SODIUM CHLOR 0.45% 1000 ML INJ 1,000 ML IV SCH (18:35)
[2017-10-15] MEDS ORDERED: SODIUM CHLOR 0.9% 250 ML INJ 250 ML IV ONE (19:00)
[2017-10-15] MEDS: PIPERACIL-TAZO 2.25 GM PREMIX 50 ML IV SCH (19:54)
[2017-10-15] MEDS: SODIUM CHLORIDE 0.9% FLUSH 10 ML FLUSH IV FLUSH SCH (19:54)
[2017-10-15] MEDS: HEPARIN SODIUM - SQ 10,000 UNITS/ML VIAL SQ SCH (19:54)
[2017-10-15] MEDS: ASCORBIC ACID 500 MG TAB PO SCH (19:55)
[2017-10-15] MEDS: DOCUSATE SODIUM 50 MG/SENNA 8.6 MG TAB PO SCH (19:55)
[2017-10-15 20:00] VITALS: BP 115/56; PULSE 91; RESP 18; TEMP 99.9; O2SAT 99
[2017-10-15] MEDS ORDERED: NON-FORMULARY DRUG (Ascorbic Acid (Vitamin C) 500 MG) CHEW SCH (21:00)
[2017-10-15] MEDS: ACETAMINOPHEN/HYDROcodone 325 MG/7.5 MG TAB PO PRN (21:34)
[2017-10-16] VITALS (14 sets, daily range): BP systolic 77–164; BP diastolic 38–89; PULSE 62–94; RESP 18–20; TEMP 97.5–102; O2SAT 92–99
[2017-10-16] MEDS: CARBIDOPA/LEVODOPA 25 MG/100 MG TAB PO SCH ×4 (00:27→16:57)
[2017-10-16] MEDS: PIPERACIL-TAZO 2.25 GM PREMIX 50 ML IV SCH ×4 (00:27→20:00)
[2017-10-16] MEDS: ACETAMINOPHEN/HYDROcodone 325 MG/7.5 MG TAB PO PRN (05:09)
[2017-10-16] MEDS: LEVOTHYROXINE SODIUM 150 MCG TAB PO SCH (05:09)
[2017-10-16 07:17] LABS: AUTOMATED NEUTROPHIL # 8.9 TH/MM3 (1.8-7.7); BASOPHIL % 0.4 % (0.0-2.0); EOSINOPHIL % 0.1 % (0.0-4.0); LYMPHOCYTE # 0.7 TH/MM3 (1.0-4.8); MEAN CELL VOLUME 95.4 FL (80.0-100.0); MEAN CORPUSCULAR HGB CONC 34.6 % (32.0-36.0); MEAN PLATELET VOLUME 7.5 FL (7.0-11.0); MONOCYTE # 0.7 TH/MM3 (0-0.9); NEUT % 85.5 % (16.0-70.0); PLATELET COUNT 207 TH/MM3 (150-450); RED BLOOD COUNT 2.14 MIL/MM3 (4.00-5.30); RED CELL DISTRIBUTION WIDTH 15.5 % (11.6-17.2); WHITE BLOOD COUNT 10.4 TH/MM3 (4.0-11.0)
[2017-10-16 07:26] LABS: ALBUMIN 2.3 GM/DL (3.4-5.0); ALT (GPT) LESS THAN 6 U/L (10-53); AST (GOT) 28 U/L (15-37); BICARBONATE 25.8 MEQ/L (21.0-32.0); BLOOD UREA NITROGEN 22 MG/DL (7-18); CALCIUM 7.5 MG/DL (8.5-10.1); CHLORIDE 105 MEQ/L (98-107); CREATININE 1.13 MG/DL (0.50-1.00); GLOMERULAR FILTRATION RATE 46 ML/MIN (>89); GLUCOSE,RANDOM 80 MG/DL (74-106); SODIUM (NA) 140 MEQ/L (136-145)
[2017-10-16 07:27] LABS: ALKALINE PHOSPHATASE 74 U/L (45-117); TOTAL BILIRUBIN ADULT 0.8 MG/DL (0.2-1.0); TOTAL PROTEIN 5.8 GM/DL (6.4-8.2)
[2017-10-16 07:33] LABS: HEMATOCRIT 20.4 % (35.0-46.0); HEMOGLOBIN 7.1 GM/DL (11.6-15.3)
[2017-10-16] MEDS: CHOLESTYRAMINE 4 GM PACKET PO SCH ×3 (08:46→16:57)
[2017-10-16] MEDS: MULTIVITAMIN TAB PO SCH (08:46)
[2017-10-16] MEDS: ASCORBIC ACID 500 MG TAB PO SCH (08:47)
[2017-10-16] MEDS: PANTOPRAZOLE SOD 20 MG DELAYED RELEASE TAB PO SCH (08:47)
[2017-10-16] MEDS: HYDROXYCHLOROQUINE SULFATE 200 MG TAB PO SCH (08:47)
[2017-10-16] MEDS: CHOLECALCIFEROL (VIT D3) 1000 UNIT TAB PO SCH (08:47)
[2017-10-16] MEDS: SODIUM CHLORIDE 0.9% FLUSH 10 ML FLUSH IV FLUSH SCH ×2 (08:47→21:58)
[2017-10-16] MEDS: HEPARIN SODIUM - SQ 10,000 UNITS/ML VIAL SQ SCH (08:47)
[2017-10-16] MEDS: FERROUS SULFATE 325 MG (65 MG ELEMENTAL IRON) TAB PO SCH ×2 (08:47→16:58)
[2017-10-16] MEDS: DOCUSATE SODIUM 50 MG/SENNA 8.6 MG TAB PO SCH (08:47)
[2017-10-16] MEDS ORDERED: NON-FORMULARY DRUG (Multiple Vitamin 1 TAB) PO SCH (09:00)
[2017-10-16] MEDS ORDERED: NON-FORMULARY DRUG (Omeprazole 20 MG) PO SCH (09:00)
[2017-10-16] MEDS: SODIUM CHLOR 0.45% 1000 ML INJ 1,000 ML IV SCH ×2 (09:01→21:57)
[2017-10-16] MEDS: RESP: ALBUTEROL 2.5 MG/IPRATROPIUM 0.5 MG NEB (SCH) INH (09:36)
--- NOTE | 2017-10-16 11:18 | HHI.PR ---
Subjective Remarks Is an 82-year-old female with history of UTI and a recent left femoral neck fracture status post left hip hemiarthroplasty who presents to [facility]. Due to patient's mental status the history is obtained from the chart and ED documentation. As per ED documentation [facility] staff states that patient has a baseline of awake and alert oriented 2. The patient was confused this morning and orally oriented to 1. The patient also seem more weak than normal. Patient had a fever with a T-max of 101 and was given some Tylenol after which her fever spike to 103. As per ED documentation there was also reports of purulent discharge seen from the wound that was later drained and cleaned with normal saline. The patient's daughter is at bedside, states that the patient's mom is actually not that altered. 10/16: Discussed with the patient in the room, her tremors are increased today, discussed with her Daughter Miss Pacheco, she wants to speak with hospice care and store operations specialist about her Mother also she wants to speak with Orthopedic civil design specialist already consulted. her Mother is DNR placed Code status in chart. No nausea, vomit or diarrhea, mild dehydration given IV fluids 500 ml bolus and continue IV, also her hemoglobin 7.1 will give two units of PRBCs. Objective Vital Signs Date Time Temp Pulse Resp B/P (MAP) Pulse Ox O2 Delivery O2 Flow Rate FiO2 10/16/17 09:42 99 21 10/16/17 08:00 97.5 77 18 101/49 (66) 93 10/16/17 04:00 100.3 80 20 116/56 (76) 96 10/16/17 00:00 99.2 78 18 164/84 (110) 97 10/15/17 20:00 99.9 91 18 115/56 (75) 99 10/15/17 18:22 99.1 86 19 95/48 (64) 93 10/15/17 17:51 10/15/17 17:00 83 16 90/51 (64) 98 Room Air 10/15/17 16:58 Room Air 10/15/17 16:58 96 Room Air 10/15/17 15:39 Room Air 10/15/17 15:34 101.7 102 16 114/52 (72) I/O 10/15/17 10/15/17 10/15/17 10/16/17 10/16/17 5/20/18 07:00 15:00 23:00 07:00 15:00 23:00 Intake Total 50 ml 50 ml 250 ml Balance 50 ml 50 ml 250 ml Intake IV Total 50 ml 50 ml 250 ml # Voids 2 Result Diagram: 10/16/17 0642 10/16/17 0642 Imaging Last Impressions Hip and Pelvis X-Ray 10/15/17 1543 Signed Impressions: Service Date/Time: Sunday, October 15, 2017 16:04 - CONCLUSION: 1. Stable left hip arthroplasty without acute fracture or significant radiographic change. Jason Stover MD Chest X-Ray 10/15/17 1543 Signed Impressions: Service Date/Time: Sunday, October 15, 2017 16:12 - CONCLUSION: 1. No acute cardiopulmonary disease. Jason Stover MD Procedures None Other Results Laboratory Tests Test 10/15/17 15:45 10/16/17 06:42 Urine Color YELLOW Urine Turbidity HAZY Urine pH 6.5 Urine Specific [place] 1.019 Urine Protein 30 mg/dL Urine Glucose (UA) NEG mg/dL Urine Ketones NEG mg/dL Urine Occult Blood SMALL Urine Nitrite POS Urine Bilirubin NEG Urine Urobilinogen LESS THAN 2.0 MG/DL Urine Leukocyte Esterase LARGE Urine WBC 15 /hpf Urine Squamous Epithelial Cells > 8 /hpf Urine Bacteria MANY /hpf Microscopic Urinalysis Comment CATH-CULTURE IND Lactic Acid Level 1.3 mmol/L White Blood Count 10.4 TH/MM3 Red Blood Count 2.14 MIL/MM3 Hemoglobin 7.1 GM/DL Hematocrit 20.4 % Mean Corpuscular Volume 95.4 FL Mean Corpuscular Hemoglobin 33.0 PG Mean Corpuscular Hemoglobin Concent 34.6 % Red Cell Distribution Width 15.5 % Platelet Count 207 TH/MM3 Mean Platelet Volume 7.5 FL Neutrophils (%) (Auto) 85.5 % Lymphocytes (%) (Auto) 7.0 % Monocytes (%) (Auto) 7.0 % Eosinophils (%) (Auto) 0.1 % Basophils (%) (Auto) 0.4 % Neutrophils # (Auto) 8.9 TH/MM3 Lymphocytes # (Auto) 0.7 TH/MM3 Monocytes # (Auto) 0.7 TH/MM3 Eosinophils # (Auto) 0.0 TH/MM3 Basophils # (Auto) 0.0 TH/MM3 CBC Comment DIFF FINAL Differential Comment Blood Urea Nitrogen 22 MG/DL Creatinine 1.13 MG/DL Random Glucose 80 MG/DL Total Protein 5.8 GM/DL Albumin 2.3 GM/DL Calcium Level 7.5 MG/DL Alkaline Phosphatase 74 U/L Aspartate Amino Transf (AST/SGOT) 28 U/L Alanine Aminotransferase (ALT/SGPT) LESS THAN 6 U/L Total Bilirubin 0.8 MG/DL Sodium Level 140 MEQ/L Potassium Level 4.2 MEQ/L Chloride Level 105 MEQ/L Carbon Dioxide Level 25.8 MEQ/L Anion Gap 9 MEQ/L Estimat Glomerular Filtration Rate 46 ML/MIN Objective Remarks GENERAL: Very thin, fragile. nad SKIN: No rashes, multiple bruises in lower extremities. Incision on left hip is warm to touch with some erythema surrounding the incision. No drainage observed. edema on the area. HEAD: Atraumatic. Normocephalic. No temporal or scalp tenderness. EYES: Pupils equal round and reactive. Extraocular motions intact. No scleral icterus. No injection or drainage. ENT: Nose without bleeding, purulent drainage or septal hematoma. Throat without erythema, tonsillar hypertrophy or exudate. Uvula midline. Airway patent. NECK: Trachea midline. No JVD or lymphadenopathy. Supple, nontender, no meningeal signs. CARDIOVASCULAR: Regular rate and rhythm without murmurs, gallops, or rubs. RESPIRATORY: Clear to auscultation. Breath sounds equal bilaterally. No wheezes , rales, or rhonchi. GASTROINTESTINAL: Abdomen soft, non-tender, nondistended. No hepato-splenomegaly , or palpable masses. No guarding. MUSCULOSKELETAL: Extremities without clubbing, cyanosis, or edema. NEUROLOGICAL: Awake and alert. No focal deficits. Medications and IVs Current Medications Medications (Trade) Dose Ordered Sig/Price Route Start Time Stop Time Status Last Admin Sodium Chloride 1,000 ml @ 75 mls/hr [id number] IV 10/15/17 17:27 10/16/17 09:01 (NS Flush) 2 ml UNSCH PRN IV FLUSH 10/15/17 17:30 (NS Flush) 2 ml BID IV FLUSH 10/15/17 21:00 (Tylenol) 650 mg Q4H PRN PO 10/15/17 17:30 (Heparin Inj) 5,000 units Q12H SQ 10/15/17 20:00 10/16/17 08:47 (Narcan Inj) 0.4 mg UNSCH PRN IV PUSH 10/15/17 17:30 (Naheed-Colace) 1 tab BID PO 10/15/17 21:00 10/16/17 08:47 (Milk Of Magnesia Liq) 30 ml Q12H PRN PO 10/15/17 17:30 (Senokot) 17.2 mg Q12H PRN PO 10/15/17 17:30 (Dulcolax Supp) 10 mg DAILY PRN RECTAL 10/15/17 17:30 (Lactulose Liq) 30 ml DAILY PRN PO 10/15/17 17:30 Pharmacy Profile Note 0 ml @ 0 mls/hr UNSCH OTHER 10/15/17 18:15 Piperacillin Sod/ Tazobactam Sod 50 ml @ 100 mls/hr Q6H IV 10/15/17 20:00 10/16/17 08:46 (Sinemet 25-100 Mg) 1 tab Q6HR PO 10/16/17 00:00 10/16/17 05:09 (Vitamin D3) 1,000 units DAILY PO 10/16/17 09:00 10/16/17 08:47 (Questran 4 Gm Pkt) 4 gm TID PO 10/16/17 09:00 10/16/17 08:46 (Ferrous Sulfate) 325 mg BIDPC PO 10/16/17 09:00 10/16/17 08:47 ([place] 7.5-325 Mg) 1 tab Q4H PRN PO 10/15/17 19:00 10/16/17 05:09 (Plaquenil) 200 mg DAILY PO 10/16/17 09:00 10/16/17 08:47 (Duoneb Neb) 1 ampule DAILY NEB INH 10/16/17 08:00 10/16/17 09:36 (Synthroid) 150 mcg DAILY@0600 PO 10/16/17 06:00 10/16/17 05:09 (Vitamin C) 500 mg BID PO 10/15/17 21:00 10/16/17 08:47 (Theragran) 1 tab DAILY PO 10/16/17 09:00 10/16/17 08:46 (Protonix) 20 mg DAILY PO 10/16/17 09:00 10/16/17 08:47 Vancomycin HCl 900 mg/Sodium Chloride 259 ml @ 250 mls/hr Q24H IV 10/16/17 20:00 ([facility] [place] [facility] Ordered Lab Info) SPECIFIC LAB TO BE .. ONCE ONCE .XX 10/18/17 19:45 10/18/17 19:46 A/P Assessment and Plan (1) Sepsis ICD Code: A41.9 - Sepsis, unspecified organism Plan: Sepsis present on admission (fever and tachycardia). Likely secondary to UTI. Continue Vancomycin and Zosyn and deescalate if no MRSA found. Lactic acid in normal range, following Urine culture and Blood culture awaiting for Orthopedic surgery evaluation. as per Orthopedic surgery recommended to remove stitches and follow. continue antibiotics by now. (2) UTI (urinary tract infection) ICD Code: N39.0 - Urinary tract infection, site not specified Plan: [facility] On previous admission the patient had a urinary tract infection which urine culture grew E. coli. The patient discharged with oral cefuroxime. UA abnormal on this admission with positive nitrites, large leukocyte esterase, increased WBC. Follow-up urine culture. (3) Anemia ICD Code: D64.9 - Anemia, unspecified Status: Chronic Plan: Probable related to recent surgical procedure her Hemoglobin today is 7.1 giving two units of PRBCs. okay by her Daughter. (4) CKD (chronic kidney disease), stage III ICD Code: N18.3 - Chronic kidney disease, stage 3 (moderate) Plan: Upon review of records, the patient has a baseline creatinine of 1.1- 1.2. Patient currently at baseline. Continue to monitor BUN and creatinine, strict I's and O's, avoid nephrotoxins. (5) Hypothyroidism ICD Code: E03.9 - Hypothyroidism, unspecified Plan: Check TSH, continue levothyroxine. (6) Dementia/Parkinson's disease. ICD Code: F03.90 - Unspecified dementia without behavioral disturbance Status: Chronic Plan: Continue carbidopa levodopa. (7) Encephalopathy acute ICD Code: G93.40 - Encephalopathy, unspecified Status: Acute Plan: Likely metabolic secondary to sepsis secondary to UTI. Rule out left hip infection. Improved to baseline. DVT prophylaxis: SCDs. No chemoprophylaxis given previous history of GI bleed and current anemia. Discussed Condition With Patient and her Daughter in the room, awaiting for store operations specialist consult and also asked for hospice care. giving blood transfusion. Nurse Anson in the room. Discharge Planning Once cleared by Orthopedic surgery. Perfecto Calix MD October 16, 2017 11:18
[2017-10-16] MEDS ORDERED: SODIUM CHLORID 0.9% 500 ML INJ 500 ML IV ONE ×2 (11:30→20:00)
[2017-10-16] MEDS ORDERED: ACETAMINOPHEN 325 MG TAB PO PRN (11:30)
[2017-10-16] MEDS ORDERED: diphenhydrAMINE HCL 25 MG CAP PO PRN (11:30)
[2017-10-16] MEDS ORDERED: SODIUM CHLOR 0.9% 250 ML INJ 250 ML IV ONE (11:30)
[2017-10-16] MEDS ORDERED: FUROSEMIDE 20 MG/2 ML VIAL IV PUSH ONE (11:30)
--- NOTE | 2017-10-16 17:04 | PD.ORT.PN ---
Subjective Subjective Remarks Generalized weakness Patient sleeping Daughter states the hip has been doing fine 2 weeks following procedure Admitted with UIT Objective Vitals Vital Signs Date Time Temp Pulse Resp B/P (MAP) Pulse Ox O2 Delivery O2 Flow Rate FiO2 10/16/17 12:00 97.7 82 18 80/50 (60) 92 127/89 (102) 10/16/17 09:42 99 21 10/16/17 08:00 97.5 77 18 101/49 (66) 93 10/16/17 04:00 100.3 80 20 116/56 (76) 96 10/16/17 00:00 99.2 78 18 164/84 (110) 97 10/15/17 20:00 99.9 91 18 115/56 (75) 99 10/15/17 18:22 99.1 86 19 95/48 (64) 93 10/15/17 17:51 10/15/17 17:00 83 16 90/51 (64) 98 Room Air I/O 10/15/17 10/15/17 10/15/17 10/16/17 10/16/17 10/16/17 07:00 15:00 23:00 07:00 15:00 23:00 Intake Total 50 ml 50 ml 800 ml Balance 50 ml 50 ml 800 ml Intake IV Total 50 ml 50 ml 800 ml # Voids 2 Result Diagram: 10/16/17 0642 10/16/17 0642 Objective Remarks Left Hip josh removed minimal erythema(appears normal) subcutaneous fluid noted Neuro intact Vascular intact negative Saima Assessment & Plan Problem List: (1) History of hemiarthroplasty of left hip ICD Codes: Z96.642 - Presence of left artificial hip joint Plan: POD #14 S/P Conversion to Left Hip Hemiarthroplasty treatment for UTI hip appears benign will discussed with Dr. Gurwinder Arellano,Rick Malin MD October 16, 2017 17:04
[2017-10-16] MEDS ORDERED: IBUPROFEN 400 MG TAB PO ONE (19:45)
[2017-10-16] MEDS ORDERED: VANCOMYCIN INJ 900 MG in SODIUM CHLOR 0.9% 250 ML INJ 250 ML IV SCH (20:00)
[2017-10-16] MEDS ORDERED: diphenhydrAMINE HCL 25 MG CAP PO ONE (21:00)
[2017-10-16] MEDS ORDERED: ACETAMINOPHEN 325 MG TAB PO ONE (21:00)
[2017-10-17] VITALS (8 sets, daily range): BP systolic 92–145; BP diastolic 50–66; PULSE 67–100; RESP 16–18; TEMP 97.5–99; O2SAT 90–97
[2017-10-17] MEDS: ASCORBIC ACID 500 MG TAB PO SCH ×3 (00:59→19:41)
[2017-10-17] MEDS: CARBIDOPA/LEVODOPA 25 MG/100 MG TAB PO SCH ×4 (00:59→16:59)
[2017-10-17] MEDS: HEPARIN SODIUM - SQ 10,000 UNITS/ML VIAL SQ SCH ×3 (01:00→19:40)
[2017-10-17] MEDS: DOCUSATE SODIUM 50 MG/SENNA 8.6 MG TAB PO SCH ×3 (01:00→19:41)
[2017-10-17] MEDS: PIPERACIL-TAZO 2.25 GM PREMIX 50 ML IV SCH ×4 (02:00→19:40)
[2017-10-17] MEDS: ACETAMINOPHEN/HYDROcodone 325 MG/7.5 MG TAB PO PRN ×4 (02:32→18:22)
[2017-10-17] MEDS: LEVOTHYROXINE SODIUM 150 MCG TAB PO SCH (05:07)
--- NOTE | 2017-10-17 06:38 | PD.ORT.PN ---
Subjective Subjective Remarks Patient is confused. Pain is controlled Objective Vitals Vital Signs Date Time Temp Pulse Resp B/P (MAP) Pulse Ox O2 Delivery O2 Flow Rate FiO2 10/17/17 04:06 98.2 75 18 100/60 95 10/17/17 02:36 98.7 72 18 100/52 90 10/16/17 22:36 98.6 69 18 88/49 98 10/16/17 20:31 98.0 74 20 83/46 (58) 98 10/16/17 20:10 70 77/38 (51) 97 10/16/17 19:54 97.8 70 20 80/43 (55) 97 10/16/17 18:30 100.4 10/16/17 18:00 99.9 10/16/17 16:00 102.0 94 20 117/60 (79) 93 10/16/17 12:00 97.7 82 18 80/50 (60) 92 127/89 (102) 10/16/17 09:42 99 21 10/16/17 08:00 97.5 77 18 101/49 (66) 93 I/O 10/16/17 10/16/17 10/16/17 10/17/17 10/17/17 10/17/17 07:00 15:00 23:00 07:00 15:00 23:00 Intake Total 50 ml 800 ml 120 ml 430 ml Output Total 200 ml 800 ml Balance 50 ml 800 ml -80 ml -370 ml Intake Oral 120 ml IV Total 50 ml 800 ml Packed Cells 400 ml Blood Product IV Normal Saline Flush 30 ml Output Urine Total 200 ml 800 ml # Voids 2 3 # Bowel Movements 0 Result Diagram: 10/16/17 0642 10/16/17 0642 Objective Remarks Left Hip josh removed minimal erythema(appears normal) subcutaneous fluid noted Neuro intact Vascular intact negative Saima Assessment & Plan Problem List: (1) History of hemiarthroplasty of left hip ICD Codes: Z96.642 - Presence of left artificial hip joint Assessment and Plan Left hip hemiarthroplasty POD #15 Physical therapy weightbearing as tolerated with posterior hip precautions Continue dressing 1 day then discontinue Medical management for UTI Plan on discharge once medically stable Follow-up appointment with Dr. Sandoval or PA in 1 month Shahid Saavedra Jr. October 17, 2017 06:38
[2017-10-17] MEDS: SODIUM CHLORIDE 0.9% FLUSH 10 ML FLUSH IV FLUSH SCH ×2 (07:57→19:41)
[2017-10-17] MEDS: FERROUS SULFATE 325 MG (65 MG ELEMENTAL IRON) TAB PO SCH ×2 (07:57→16:58)
[2017-10-17] MEDS: HYDROXYCHLOROQUINE SULFATE 200 MG TAB PO SCH (07:58)
[2017-10-17] MEDS: CHOLECALCIFEROL (VIT D3) 1000 UNIT TAB PO SCH (07:58)
[2017-10-17] MEDS: PANTOPRAZOLE SOD 20 MG DELAYED RELEASE TAB PO SCH (07:58)
[2017-10-17] MEDS: CHOLESTYRAMINE 4 GM PACKET PO SCH ×3 (07:58→16:58)
[2017-10-17] MEDS: MULTIVITAMIN TAB PO SCH (07:58)
[2017-10-17] MEDS: RESP: ALBUTEROL 2.5 MG/IPRATROPIUM 0.5 MG NEB (SCH) INH (08:00)
[2017-10-17] MEDS: SODIUM CHLOR 0.45% 1000 ML INJ 1,000 ML IV SCH (08:00)
--- NOTE | 2017-10-17 08:35 | HHI.PR ---
Subjective Remarks Is an 82-year-old female with history of UTI and a recent left femoral neck fracture status post left hip hemiarthroplasty who presents to [facility]. Due to patient's mental status the history is obtained from the chart and ED documentation. As per [facility] documentation [facility] staff states that patient has a baseline of awake and alert oriented 2. The patient was confused this morning and orally oriented to 1. The patient also seem more weak than normal. Patient had a fever with a T-max of 101 and was given some Tylenol after which her fever spike to 103. As per ED documentation there was also reports of purulent discharge seen from the wound that was later drained and cleaned with normal saline. The patient's daughter is at bedside, states that the patient's mom is actually not that altered. 10/16: Discussed with the patient in the room, her tremors are increased today, discussed with her Daughter Miss Pacheco, she wants to speak with hospice care and job development specialist about her Mother also she wants to speak with Orthopedic data warehousing specialist already consulted. her Mother is DNR placed Code status in chart. mild dehydration given IV fluids 500 ml bolus and continue IV, also her hemoglobin 7.1 will give two units of PRBCs. 10/17: Objective Vital Signs Date Time Temp Pulse Resp B/P (MAP) Pulse Ox O2 Delivery O2 Flow Rate FiO2 10/17/17 08:00 98.2 67 17 92/50 (64) 92 10/17/17 07:16 98.8 68 16 102/56 97 10/17/17 04:06 98.2 75 18 100/60 95 10/17/17 03:48 77 10/17/17 02:36 98.7 72 18 100/52 90 10/16/17 23:50 62 10/16/17 22:36 98.6 69 18 88/49 98 10/16/17 20:31 98.0 74 20 83/46 (58) 98 10/16/17 20:10 70 77/38 (51) 97 10/16/17 19:54 97.8 70 20 80/43 (55) 97 10/16/17 19:48 69 10/16/17 18:30 100.4 10/16/17 18:00 99.9 10/16/17 16:00 102.0 94 20 117/60 (79) 93 10/16/17 12:00 97.7 82 18 80/50 (60) 92 127/89 (102) 10/16/17 09:42 99 21 I/O 10/16/17 10/16/17 10/16/17 10/17/17 10/17/17 10/17/17 07:00 15:00 23:00 07:00 15:00 23:00 Intake Total 50 ml 800 ml 120 ml 430 ml 500 ml Output Total 200 ml 800 ml Balance 50 ml 800 ml -80 ml -370 ml 500 ml Intake Oral 120 ml IV Total 50 ml 800 ml Packed Cells 400 ml 400 ml Blood Product IV Normal Saline Flush 30 ml 100 ml Output Urine Total 200 ml 800 ml # Voids 2 3 # Bowel Movements 0 Result Diagram: 10/16/17 0642 10/16/17 0642 Imaging Last Impressions Hip and Pelvis X-Ray 10/15/17 1543 Signed Impressions: Service Date/Time: Sunday, October 15, 2017 16:04 - CONCLUSION: 1. Stable left hip arthroplasty without acute fracture or significant radiographic change. Jason Stover MD Chest X-Ray 10/15/17 1543 Signed Impressions: Service Date/Time: Sunday, October 15, 2017 16:12 - CONCLUSION: 1. No acute cardiopulmonary disease. Jason Stover MD Procedures None Other Results Laboratory Tests Test 10/15/17 15:45 10/16/17 06:42 10/16/17 21:40 Urine Color YELLOW Urine Turbidity HAZY Urine pH 6.5 Urine Specific [place] 1.019 Urine Protein 30 mg/dL Urine Glucose (UA) NEG mg/dL Urine Ketones NEG mg/dL Urine Occult Blood SMALL Urine Nitrite POS Urine Bilirubin NEG Urine Urobilinogen LESS THAN 2.0 MG/DL Urine Leukocyte Esterase LARGE Urine WBC 15 /hpf Urine Squamous Epithelial Cells > 8 /hpf Urine Bacteria MANY /hpf Microscopic Urinalysis Comment CATH-CULTURE IND White Blood Count 10.4 TH/MM3 Red Blood Count 2.14 MIL/MM3 Hemoglobin 7.1 GM/DL Hematocrit 20.4 % Mean Corpuscular Volume 95.4 FL Mean Corpuscular Hemoglobin 33.0 PG Mean Corpuscular Hemoglobin Concent 34.6 % Red Cell Distribution Width 15.5 % Platelet Count 207 TH/MM3 Mean Platelet Volume 7.5 FL Neutrophils (%) (Auto) 85.5 % Lymphocytes (%) (Auto) 7.0 % Monocytes (%) (Auto) 7.0 % Eosinophils (%) (Auto) 0.1 % Basophils (%) (Auto) 0.4 % Neutrophils # (Auto) 8.9 TH/MM3 Lymphocytes # (Auto) 0.7 TH/MM3 Monocytes # (Auto) 0.7 TH/MM3 Eosinophils # (Auto) 0.0 TH/MM3 Basophils # (Auto) 0.0 TH/MM3 CBC Comment DIFF FINAL Differential Comment Blood Urea Nitrogen 22 MG/DL Creatinine 1.13 MG/DL Random Glucose 80 MG/DL Total Protein 5.8 GM/DL Albumin 2.3 GM/DL Calcium Level 7.5 MG/DL Alkaline Phosphatase 74 U/L Aspartate Amino Transf (AST/SGOT) 28 U/L Alanine Aminotransferase (ALT/SGPT) LESS THAN 6 U/L Total Bilirubin 0.8 MG/DL Sodium Level 140 MEQ/L Potassium Level 4.2 MEQ/L Chloride Level 105 MEQ/L Carbon Dioxide Level 25.8 MEQ/L Anion Gap 9 MEQ/L Estimat Glomerular Filtration Rate 46 ML/MIN Lactic Acid Level 0.9 mmol/L Objective Remarks GENERAL: Very thin, fragile. nad SKIN: No rashes, multiple bruises in lower extremities. Incision on left hip is warm to touch with some erythema surrounding the incision. No drainage observed. edema on the area. HEAD: Atraumatic. Normocephalic. No temporal or scalp tenderness. EYES: Pupils equal round and reactive. Extraocular motions intact. No scleral icterus. No injection or drainage. ENT: Nose without bleeding, purulent drainage or septal hematoma. Throat without erythema, tonsillar hypertrophy or exudate. Uvula midline. Airway patent. NECK: Trachea midline. No JVD or lymphadenopathy. Supple, nontender, no meningeal signs. CARDIOVASCULAR: Regular rate and rhythm without murmurs, gallops, or rubs. RESPIRATORY: Clear to auscultation. Breath sounds equal bilaterally. No wheezes , rales, or rhonchi. GASTROINTESTINAL: Abdomen soft, non-tender, nondistended. No hepato-splenomegaly , or palpable masses. No guarding. MUSCULOSKELETAL: Extremities without clubbing, cyanosis, or edema. NEUROLOGICAL: Awake and alert. No focal deficits. Medications and IVs Current Medications Medications (Trade) Dose Ordered Sig/Price Route Start Time Stop Time Status Last Admin Sodium Chloride 1,000 ml @ 75 mls/hr [id number] IV 10/15/17 17:27 10/17/17 08:00 (NS Flush) 2 ml UNSCH PRN IV FLUSH 10/15/17 17:30 (NS Flush) 2 ml BID IV FLUSH 10/15/17 21:00 10/16/17 21:58 (Tylenol) 650 mg Q4H PRN PO 10/15/17 17:30 10/16/17 16:58 (Heparin Inj) 5,000 units Q12H SQ 10/15/17 20:00 10/17/17 07:57 (Narcan Inj) 0.4 mg UNSCH PRN IV PUSH 10/15/17 17:30 (Naheed-Colace) 1 tab BID PO 10/15/17 21:00 10/17/17 07:59 (Milk Of Magnesia Liq) 30 ml Q12H PRN PO 10/15/17 17:30 (Senokot) 17.2 mg Q12H PRN PO 10/15/17 17:30 (Dulcolax Supp) 10 mg DAILY PRN RECTAL 10/15/17 17:30 (Lactulose Liq) 30 ml DAILY PRN PO 10/15/17 17:30 Pharmacy Profile Note 0 ml @ 0 mls/hr UNSCH OTHER 10/15/17 18:15 (Sinemet 25-100 Mg) 1 tab Q6HR PO 10/16/17 00:00 10/17/17 05:07 (Vitamin D3) 1,000 units DAILY PO 10/16/17 09:00 10/17/17 07:58 (Questran 4 Gm Pkt) 4 gm TID PO 10/16/17 09:00 10/17/17 07:58 (Ferrous Sulfate) 325 mg BIDPC PO 10/16/17 09:00 10/17/17 07:57 ([place] 7.5-325 Mg) 1 tab Q4H PRN PO 10/15/17 19:00 10/17/17 02:32 (Plaquenil) 200 mg DAILY PO 10/16/17 09:00 10/17/17 07:58 (Duoneb Neb) 1 ampule DAILY NEB INH 10/16/17 08:00 10/16/17 09:36 (Synthroid) 150 mcg DAILY@0600 PO 10/16/17 06:00 10/17/17 05:07 (Vitamin C) 500 mg BID PO 10/15/17 21:00 10/17/17 07:59 (Theragran) 1 tab DAILY PO 10/16/17 09:00 10/17/17 07:58 (Protonix) 20 mg DAILY PO 10/16/17 09:00 10/17/17 07:58 ([facility] [place] [facility] Ordered Lab Info) SPECIFIC LAB TO BE CORAL... ONCE ONCE .XX 10/18/17 19:45 10/18/17 19:46 (Tylenol) 650 mg Q4H PRN PO 10/16/17 11:30 10/16/17 15:49 (Benadryl) 25 mg Q4H PRN PO 10/16/17 11:30 10/16/17 15:49 Piperacillin Sod/ Tazobactam Sod 50 ml @ 100 mls/hr Q6H IV 10/17/17 08:00 10/17/17 07:55 Vancomycin HCl 900 mg/Sodium Chloride 259 ml @ 250 mls/hr Q24H IV 10/17/17 09:00 A/P Assessment and Plan (1) Sepsis ICD Code: A41.9 - Sepsis, unspecified organism Plan: Sepsis present on admission (fever and tachycardia). Likely secondary to UTI. Continue Vancomycin and Zosyn and deescalate if no MRSA found. Lactic acid in normal range, following Urine culture and Blood culture awaiting for Orthopedic surgery evaluation. as per Orthopedic surgery recommended to remove stitches and follow. continue antibiotics by now. (2) UTI (urinary tract infection) ICD Code: N39.0 - Urinary tract infection, site not specified Plan: Patient was discharged recently to residential facility. On previous admission the patient had a urinary tract infection which urine culture grew E. coli. The patient discharged with oral cefuroxime. UA abnormal on this admission with positive nitrites, large leukocyte esterase, increased WBC. Follow-up urine culture. (3) Anemia ICD Code: D64.9 - Anemia, unspecified Status: Chronic Plan: Probable related to recent surgical procedure her Hemoglobin today is 7.1 giving two units of PRBCs. okay by her Daughter. (4) CKD (chronic kidney disease), stage III ICD Code: N18.3 - Chronic kidney disease, stage 3 (moderate) Plan: Upon review of records, the patient has a baseline creatinine of 1.1- 1.2. Patient currently at baseline. Continue to monitor BUN and creatinine, strict I's and O's, avoid nephrotoxins. (5) Hypothyroidism ICD Code: E03.9 - Hypothyroidism, unspecified Plan: Check TSH, continue levothyroxine. (6) Dementia/Parkinson's disease. ICD Code: F03.90 - Unspecified dementia without behavioral disturbance Status: Chronic Plan: Continue carbidopa levodopa. (7) Encephalopathy acute ICD Code: G93.40 - Encephalopathy, unspecified Status: Acute Plan: Likely metabolic secondary to sepsis secondary to UTI. Rule out left hip infection. Improved to baseline. DVT prophylaxis: SCDs. No chemoprophylaxis given previous history of GI bleed and current anemia. Discussed Condition With Patient and her Daughter in the room, awaiting for sight effects specialist consult and also asked for hospice care. giving blood transfusion. Nurse Anson in the room. Discharge Planning Once cleared by Orthopedic surgery. Perfecto Cailx MD October 17, 2017 08:35
[2017-10-17] MEDS ORDERED: VANCOMYCIN INJ 900 MG in SODIUM CHLOR 0.9% 250 ML INJ 250 ML IV SCH (09:00)
[2017-10-17 11:46] LABS: AUTOMATED NEUTROPHIL # 8.5 TH/MM3 (1.8-7.7); BASOPHIL % 0.1 % (0.0-2.0); EOSINOPHIL % 0.1 % (0.0-4.0); HEMATOCRIT 28.1 % (35.0-46.0); HEMOGLOBIN 9.8 GM/DL (11.6-15.3); LYMPH % 5.5 % (9.0-44.0); LYMPHOCYTE # 0.5 TH/MM3 (1.0-4.8); MEAN CELL VOLUME 93.7 FL (80.0-100.0); MEAN CORPUSCULAR HEMOGLOBIN 32.6 PG (27.0-34.0); MEAN CORPUSCULAR HGB CONC 34.7 % (32.0-36.0); MEAN PLATELET VOLUME 7.6 FL (7.0-11.0); MONO % 5.3 % (0.0-8.0); MONOCYTE # 0.5 TH/MM3 (0-0.9); PLATELET COUNT 203 TH/MM3 (150-450); RED CELL DISTRIBUTION WIDTH 15.9 % (11.6-17.2); WHITE BLOOD COUNT 9.6 TH/MM3 (4.0-11.0)
[2017-10-17 12:15] LABS: BICARBONATE 23.1 MEQ/L (21.0-32.0); CALCIUM 7.7 MG/DL (8.5-10.1); CREATININE 1.21 MG/DL (0.50-1.00)
[2017-10-18] MEDS ORDERED: PHARMACY ORDERED LAB ONE (19:45)
[2017-10-20] MEDS ORDERED: PHARMACY ORDERED LAB ONE (08:45)
== END 2017-10-17 21:44 | disposition hospice, inpatient (51) | DRG 871 ==
LOC: NEPE 15:31 → NEDA 17:16 → N07B 18:02
PROVIDERS: ADMIT Internal Medicine; ATTEND Internal Medicine
PROC: 30233N1 Transfusion of Nonautologous Red Blood Cells into Peripheral Vein, Percutaneous Approach (ICD-10-PCS; principal; 2017-10-16)
DX: A41.9 Sepsis, unspecified organism (principal); G93.40 Encephalopathy, unspecified; G20 Parkinson's disease; F03.90 Unspecified dementia, unspecified severity, without behavioral disturbance, psychotic disturbance, mood disturbance, and anxiety; E86.0 Dehydration; N39.0 Urinary tract infection, site not specified; F41.9 Anxiety disorder, unspecified; F32.9 Major depressive disorder, single episode, unspecified; M79.7 Fibromyalgia; I25.10 Atherosclerotic heart disease of native coronary artery without angina pectoris; D64.9 Anemia, unspecified; N18.3 Chronic kidney disease, stage 3 (moderate); E03.9 Hypothyroidism, unspecified; B96.20 Unspecified Escherichia coli [E. coli] as the cause of diseases classified elsewhere; Z96.642 Presence of left artificial hip joint; Z51.5 Encounter for palliative care; Z87.440 Personal history of urinary (tract) infections; Z66 Do not resuscitate
CPT/HCPCS: 36430; 71045; 73502; 80048; 80053; 81001; 83605; 85025; 86850; 86900; 86901; 86920; 86922; 87040; 87077; 87086; 87186; 94640; 94664; 96360; J1644; J1940; J2543; J3370; J7040; J7050; P9016